=== PATIENT | male | born 1965 | race Caucasian/White ===

== ENCOUNTER → 2016-11-28 | Outpatient (CLI) | payer OTHER ==
[~2016-11-28] MED LIST: GADOBUTROL 10 ML VIAL IVP ONE
== END ==
LOC: FIMAGING 13:31
PROVIDERS: ATTEND Internal Medicine Infectious Disease
DX: R22.42 Localized swelling, mass and lump, left lower limb (principal)
CPT/HCPCS: A9585

== ENCOUNTER 2017-02-22 05:41 | Day surgery (SDC) | payer OTHER ==
[2017-02-22] MEDS ORDERED: LIDOCAINE 1% 2 ML INJ ONE (05:55)
[2017-02-22] MEDS ORDERED: ceFAZolin 2 GM/DEXTROSE 100 ML IV ONE (06:00)
[2017-02-22] MEDS ORDERED: BUPIVACAINE 0.5% 30 ML SDV ONE (06:59)
[2017-02-22] MEDS ORDERED: MIDAZOLAM 2 MG/2 ML VIAL ONE (07:13)
[2017-02-22] MEDS ORDERED: fentaNYL 100 MCG/2 ML INJ ONE ×2 (07:17→09:35)
[2017-02-22] MEDS ORDERED: PROPOFOL 200 MG/20 ML VIAL ONE ×2 (07:18→07:20)
[2017-02-22] MEDS ORDERED: KETAMINE 100 MG/10 ML SYR ONE (07:18)
[2017-02-22] MEDS ORDERED: ROCURONIUM 100 MG/10 ML VIAL ONE (07:20)
[2017-02-22] MEDS ORDERED: LIDOCAINE 2% 100 MG/5 ML SYR ONE (07:30)
[2017-02-22] MEDS ORDERED: HYDROmorphONE/DILAUDID 2 MG/ML INJ ONE (08:18)
[2017-02-22] MEDS ORDERED: SUGAMMADEX SODIUM 200 MG/2 ML VIAL IVP ONE (08:50)
--- NOTE | 2017-02-22 10:27 | GOP ---
[f rep st] OPERATIVE REPORT DATE OF OPERATION: 02/22/2017 SURGEON: Celsa Sykes MD COMPLIANCE COUNSEL: WENDY Rodas. ANESTHESIA: General. ANESTHESIOLOGIST: Dr. Gurvinder Taveras. PREOPERATIVE DIAGNOSIS: Ventral hernia. POSTOPERATIVE DIAGNOSIS: Incarcerated ventral hernia. PROCEDURE PERFORMED: Ventral hernia repair with mesh. FINDINGS: Loop of bowel in the subcutaneous tissue. Hernia defect 7 cm with 2 small defects near the umbilicus. SPECIMENS: None. ESTIMATED BLOOD LOSS: 20 cc. INDICATIONS: The patient is a 51-year-old man with a significant past medical and surgical history who developed a painful hernia in his abdomen. DESCRIPTION OF PROCEDURE: The patient was brought into the operating room, placed supine on the table, and general anesthesia was administered. His abdomen was prepped and draped in the usual sterile fashion. I infiltrated all sites with 0.5% Marcaine prior to making incisions. I made a transverse incision over the mass. I dissected down through the subcutaneous tissues with electrocautery, and I immediately encountered a loop of bowel. I inspected the bowel and there were no injuries from cautery. I then carefully dissected around the bowel and encountered the hernia defect. I was able to reduce the bowel. I performed dissection to reduce incarcerated omentum from 2 subumbilical defects. Once the fascia was cleared above and below the peritoneum, I tried to create flaps so that this would be a retrorectus dissection. His rectus was very difficult to identify. I closed the 2 small subumbilical defects with 0 PDS. I placed 4-0 Surgilon at least 3 cm away from the incision in each direction. I then closed the fascial defect with 0 PDS. Next, I placed a piece of 10 x 15 Symbotex mesh directly above the posterior rectus sheath. I then threaded the Surgilon through this so that it had adequate borders on each side of the incision. I tied these down. I continued to adhere the mesh to the fascia with 0 Surgilon. I then closed the anterior rectus with 0 Vicryl. I closed subcutaneous tissue with 3-0 Vicryl followed by 4-0 Monocryl. Dermabond applied. A tap block was then performed by Dr. Taveras. He was then awakened in the operating room, extubated, transferred to PACU in stable condition. /[id number]/MODL MTDD
== END 2017-02-22 11:20 | disposition home or self-care (01) ==
LOC: FSGY 05:41
PROVIDERS: ATTEND Surgery
PROC: 0WUF0JZ Supplement Abdominal Wall with Synthetic Substitute, Open Approach (ICD-10-PCS; principal; 2017-02-22 07:30)
DX: K43.6 Other and unspecified ventral hernia with obstruction, without gangrene (principal); C22.0 Liver cell carcinoma; E11.9 Type 2 diabetes mellitus without complications; G89.29 Other chronic pain; E66.01 Morbid (severe) obesity due to excess calories; Z68.41 Body mass index [BMI] 40.0-44.9, adult; G47.31 Primary central sleep apnea; Z87.891 Personal history of nicotine dependence
CPT/HCPCS: C1781; J0690; J1170; J2001; J2250; J2704; J3010

== ENCOUNTER → 2017-05-07 | Outpatient (CLI) | payer OTHER | LOC: CIMAGING 15:43 | PROVIDERS: ATTEND Nurse Practitioner | DX: M79.662 Pain in left lower leg (principal); M79.89 Other specified soft tissue disorders | CPT/HCPCS: 93971-PO ==

== ENCOUNTER → 2017-06-27 | Outpatient (CLI) | payer OTHER | LOC: FIMAGING 16:18 | PROVIDERS: ATTEND Internal Medicine Hematology & Oncology | DX: R07.9 Chest pain, unspecified (principal); R10.9 Unspecified abdominal pain ==

== ENCOUNTER 2017-12-27 17:40 | Inpatient (IN) | payer OTHER, BC ==
--- NOTE | 2017-12-27 18:04 | EDPHY ---
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 He was initially diagnosed with the carcinoma in June 2012 and is followed by Dr. Oakley, oncologist. For the past 10 days he has had difficulty walking due to both weakness and pain in his left leg. Last week he stopped taking his oral chemotherapy medications. For the past several days, the pain in his lower back , left hip, and left thigh became exacerbated and he has been unable to control the pain with his prescribed pain medications. He is supposed to take 10 hydromorphones a day, but this is no alleviating the pain and he is about to run of the prescription. Dr. Oakley was going to direct admit this patient, but the oncology floor is full, so he was advised to go to the emergency department. This will be his first admission for pain control. He has also experienced mild nausea and intermittent vomiting which has decreased his appetite. Due to the decrease in appetite he has lost around 30 pounds in the past 4 months. Denies history of CHF. No fever, chills, chest pain, shortness of breath, palpitations, diarrhea, urinary complaints, headache, lightheadedness. REVIEW OF SYSTEMS: Aside from elements discussed in the HPI, a comprehensive 10-point review of systems was reviewed and is negative. 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 Overweight gentleman. HEENT: Atraumatic. Eyes: No icterus, no injection. Mouth: slightly dry mucous membranes. No erythema or lesions. Neck: supple with no adenopathy. LUNGS: Clear to auscultation bilaterally, no wheezes, rhonchi or rales. CARDIAC: Tachycardic, no rubs, murmurs or gallops. ABDOMEN: Soft, tenderness in the left lower quadrant. No guarding or rebound. Nondistended. BACK: No CVA tenderness. No midline bony tenderness. EXTREMITIES: Bilateral, left greater than right, erythema on distal tib/fib. No trauma. No edema. Range of motion is normal throughout. No tenderness to palpation over the left hip. NEURO: Alert and oriented, grossly nonfocal. Somewhat difficult to appreciate strength in the lower extremities secondary to the patient's discomfort. SKIN: Warm and dry, no rash. PSYCHIATRIC: Normal mentation, no agitation. Portions of this note were transcribed by a medical accountant. I personally performed a history, physical exam, medical decision making, and confirmed accuracy of information the transcribed note. ED Course: The patient is a 52 y/o male with metastatic renal cell carcinoma presenting with an inability to control his back and left leg pain as well as concerns regarding over sedation. He was advised to come to the ED from his oncologist, Dr. Oakley. On exam he is in clear discomfort. Labs ordered. 1L IV NS and 1mg IV Hydromorphone administered. 1913: Dr. Hayes, oncologist, returned our page and is not familiar with this patient. She has requested that the patient be admitted to the hospitalist. 0: Reassessed patient and discussed plan for admission he is comfortable with this plan. He is still in pain, additional 1mg IV Hydromorphone administered. 1935: Spoke with hospitalist service, Dr. Pulido accepts admission of this patient. Dr. Pulido was aware of the patient from conversations with [facility]. There evidently is also concerns regarding over sedation. MDM: Differential diagnoses for the patient's symptom complex was considered including but not limited to uncontrollable pain, worsening metastatic disease, over sedation, opiate dependency. - Data Points Laboratory Results: Laboratory Results 12/27/17 18:30 12/27/17 18:30 12/27/17 12/27/17 18:30 18:30 WBC 15.26 10^3/uL H 10^3/uL (3.80-9.50) RBC 4.79 10^6/uL 10^6/uL (4.40-6.38) Hgb 13.7 g/dL g/dL (13.7-17.5) Hct 43.6 % % (40.0-51.0) MCV 91.0 fL fL (81.5-99.8) MCH 28.6 pg pg (27.9-34.1) MCHC 31.4 g/dL L g/dL (32.4-36.7) RDW 17.9 % H % (11.5-15.2) Plt Count 403 10^3/uL H 10^3/uL (150-400) MPV 10.0 fL fL (8.7-11.7) Neut % (Auto) 60.1 % % (39.3-74.2) Lymph % (Auto) 23.5 % % (15.0-45.0) [place] % (Auto) 15.2 % H % (4.5-13.0) Eos % (Auto) 0.4 % L % (0.6-7.6) Baso % (Auto) 0.3 % % (0.3-1.7) Nucleat RBC Rel Count 0.1 % % (0.0-0.2) Absolute Neuts (auto) 9.18 10^3/uL H 10^3/uL (1.70-6.50) Absolute Lymphs (auto) 3.58 10^3/uL H 10^3/uL (1.00-3.00) Absolute Monos (auto) 2.32 10^3/uL H 10^3/uL (0.30-0.80) Absolute Eos (auto) 0.06 10^3/uL 10^3/uL (0.03-0.40) Absolute Basos (auto) 0.04 10^3/uL 10^3/uL (0.02-0.10) Absolute Nucleated RBC 0.02 10^3/uL H 10^3/uL (0-0.01) Immature Gran % 0.5 % % (0.0-1.1) Immature Gran # 0.08 10^3/uL 10^3/uL (0.00-0.10) Sodium 138 mEq/L mEq/L (135-145) Potassium 4.2 mEq/L mEq/L (3.5-5.2) Chloride 100 mEq/L mEq/L (97-110) Carbon Dioxide 29 mEq/l mEq/l (22-31) Anion Gap 9 mEq/L mEq/L (8-16) BUN 12 mg/dL mg/dL (7-23) Creatinine 0.8 mg/dL mg/dL (0.7-1.3) Estimated GFR > 60 Glucose 134 mg/dL H mg/dL (70-100) Calcium 11.4 mg/dL H mg/dL (8.5-10.4) Phosphorus Pending Total Bilirubin 0.8 mg/dL mg/dL (0.1-1.4) Conjugated Bilirubin 0.6 mg/dL H mg/dL (0.0-0.5) Unconjugated Bilirubin 0.2 mg/dL mg/dL (0.0-1.1) AST 32 IU/L IU/L (17-59) ALT 30 IU/L IU/L (21-72) Alkaline Phosphatase 141 IU/L H IU/L (38-126) Total Protein 7.3 g/dL g/dL (6.3-8.2) Albumin 3.2 g/dL L g/dL (3.5-5.0) Lipase 47 IU/L IU/L (23-300) Medications Given: Discontinued Medications Hydromorphone HCl (Dilaudid) 1 mg IVP EDNOW ONE Stop: 12/27/17 18:30 Last Admin: 12/27/17 18:40 Dose: 1 mg Hydromorphone HCl (Dilaudid) 1 mg IVP EDNOW ONE Stop: 12/27/17 19:20 Last Admin: 12/27/17 19:28 Dose: 1 mg Sodium Chloride (Ns) 1,000 mls @ 0 mls/hr IV ONCE ONE; Wide Open PRN Reason: Protocol Stop: 12/27/17 18:31 Last Admin: 12/27/17 18:41 Dose: 1,000 mls General Time Seen by Provider: 12/27/17 18:01 Initial Vital Signs: Initial Vital Signs Temperature (C) 37.0 C 12/27/17 17:42 Heart Rate 112 H 12/27/17 17:42 Respiratory Rate 18 12/27/17 17:42 Blood Pressure 155/82 H 12/27/17 17:42 O2 Sat (%) 90 L 12/27/17 17:42 O2 Delivery Mode Room Air O2 (L/minute) 2 Allergies/Adverse Reactions: lisinopril Allergy (Verified 04/05/16 17:52) Home Medications: Medication Instructions Recorded FLUoxetine [Prozac 20 MG (*)] 1 cap PO DAILY 12/27/17 Gabapentin [Neurontin 300 MG (*)] 300 mg PO TID 12/27/17 Levothyroxine [Synthroid 50 mcg 50 mcg PO DAILY06 12/27/17 (*)] Losartan Potassium [Cozaar 25 mg 25 mg PO BID 12/27/17 (*)] Magic Mouth Wash 5 ml PO ACHS PRN 12/27/17 Metformin HCl [Metformin 1000 mg] 1,000 mg PO DAILY 12/27/17 Potassium Cl [Klor-Con 20 meq (*)] 1 tab PO HS 12/27/17 Prochlorperazine Maleate 10 mg PO Q6 PRN 12/27/17 [Compazine 10mg (*)] Zolpidem Tartrate [Ambien] 10 mg PO HS PRN 12/27/17 traZODone [traZODONE 100MG (*)] 200 mg PO HS 12/27/17 Oxymorphone HCl [Opana ER] 160 mg PO BID 12/31/17 Oxymorphone Hcl [Opana Er] 120 mg PO DAILY@1500 12/31/17 oxyCODONE IR [Oxycodone Ir (*)] 15 - 30 mg PO Q4 PRN #0 12/31/17 Departure - Departure Disposition: [facility] Clinical Impression: Pain management Renal cell carcinoma Qualifiers: Laterality: left Qualified Code(s): C64.2 - Malignant neoplasm of left kidney, except renal pelvis Condition: Fair Report Scribed for: Suzette Parker Report Scribed by: Estephania Smyth Date of Report: 12/27/17 Time of Report: 18:04
[2017-12-27] MEDS ORDERED: HYDROmorphONE/DILAUDID 2 MG/ML INJ IVP ONE ×2 (18:29→19:19)
[2017-12-27] MEDS ORDERED: NS 1,000 ML IV ONE (18:30)
[2017-12-27] MEDS ORDERED: HYDROmorphONE/DILAUDID 2 MG/ML INJ ONE (18:31)
[2017-12-27 18:47] LABS: PLATELET COUNT 403 10^3/uL (150-400)
[2017-12-27] MEDS ORDERED: ACETAMINOPHEN 325 MG TAB PO PRN (19:55)
[2017-12-27] MEDS ORDERED: ONDANSETRON DISINTEGRATING 4 MG TAB PO PRN (19:55)
[2017-12-27] MEDS ORDERED: ONDANSETRON 4 MG/2 ML VIAL IVP PRN (19:55)
[2017-12-27] MEDS ORDERED: BISACODYL 10 MG SUPP PR PRN (21:40)
[2017-12-27] MEDS ORDERED: POLYETHYLENE GLYCOL 3350 17 GM PKT PO PRN (21:40)
[2017-12-27] MEDS ORDERED: MAGNESIUM HYDROXIDE 30 ML UDCUP PO PRN (21:40)
[2017-12-27] MEDS ORDERED: LACTULOSE 20 GM/30 ML UDCUP PO PRN (21:40)
[2017-12-27] MEDS ORDERED: NS 1,000 ML IV SCH (21:45)
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
[2017-12-27] MEDS ORDERED: NALOXONE HCL 0.4 MG/ML INJ IVP PRN (22:33)
--- NOTE | 2017-12-27 23:03 | SOAPPROG ---
SOAP Progress Note Assessment/Plan: Addendum: Spoke with RN who dosed Opana 200mg this evening without an order from me. Concerning given patient is somnolent here. My plan was to reduce this dose for basal coverage and add MEDICAL INFORMATION OFFICER for PRN. I spoke with her and expressed that her actions were not appropriate and she agreed. Plan: #Acute on chronic pain: -unclear of cancer progressive since don't have access to PET report this evening. Will discuss with Oncology tomorrow -he is having more pain, but oversedated from over-dosing oxycodone. So will reduce will reduced Oxymorphone to 120mg BID (200mg BID) for basal coverage and MEDICAL INFORMATION OFFICER for PRN and adjust from there. -tried Fentanyl patch in past, but was oversedated -Methadone may be a good option in this patient. Would prefer to try this during day rather than overnight -pulse ox Prolonged time spent on visit: 30 min reviewing meds, d/w pharmacy 12/27/17 23:03 12/27/17 23:04 12/28/17 13:57 Objective: Vital Signs Temp Pulse Resp BP Pulse Ox 37.0 C 105 H 18 176/99 H 97 12/27/17 20:44 12/27/17 20:44 12/27/17 20:44 12/27/17 20:44 12/27/17 20:44 12/26/17 12/27/17 12/28/17 05:59 05:59 05:59 Intake Total 800 Output Total 100 Balance 700 ICD10 Worksheet Patient Problems: Problems Problem Status Onset Pain management Acute Renal cell carcinoma Acute
[2017-12-27] MEDS: HYDROmorphONE/DILAUDID 6 MG/30 ML PCA IV PRN (23:10)
--- NOTE | 2017-12-27 23:41 | PDMN ---
Medical Necessity Medical necessity: C/M review: est. > 2 MN LOS for eval and TX of acute on chronic abdominal / hip pain from metastatic disease, patient somnolent due self overmedication leukocytosis, hypercalcemia, requiring ongoing IV fluids, IV Dilaudid PERFUME AND TOILET WATER MAKER, pain treatment, pulse oximetry, supplemental O2, comorbid patient direct admit for Oncologist office, metastatic clear cell cancer with peritoneal carcinomatosis, hypothyroidism, type 2 diabetes, hypertension, chronic leg swelling greater on the left after foot surgery, history of morbid obesity per H/P.
[2017-12-28] MEDS: OXYMORPHONE HCL 40 MG PO SCH ×2 (07:59→20:57)
[2017-12-28] MEDS: SENNOSIDES/DOCUSATE SODIUM TAB PO SCH ×2 (08:00→20:57)
[2017-12-28] MEDS: ENOXAPARIN 40 MG/0.4 ML SYR SC SCH (08:00)
[2017-12-28] MEDS ORDERED: OXYMORPHONE HCL PO SCH (09:00)
[2017-12-28] MEDS: HYDROmorphONE/DILAUDID 6 MG/30 ML PCA IV PRN (10:43)
--- NOTE | 2017-12-28 12:56 | GCON ---
[f rep st] CONSULTATION ONCOLOGY CONSULTATION REASON FOR REFERRAL: Metastatic renal cell carcinoma with severe pain. HISTORY OF PRESENT ILLNESS: Alexandre Gary is a 52-year-old male with a long history of metastatic renal cell carcinoma followed by . He was admitted yesterday from the office for further management of pain control in the setting of progressive metastatic disease. Alexandre's oncology history dates back to July of 2012 when he underwent a left nephrectomy for renal cell carcinoma. Intraoperatively, the SMA and celiac arteries were transected and he had a saphenous vein graft to the SMA and celiac arteries along with a splenectomy. He did receive vaccinations prior to discharge at that time. He was initially felt to have stage III disease. However, he developed stage IV disease in 2013 when he was found to have a local recurrence in the left nephrectomy site in the subdiaphragmatic region as well as in the left side of the pelvis lateral to the psoas muscle. He has had multiple prior therapies over the years including sunitinib, followed by everolimus in 2014. He received immunotherapy with nivolumab from November to March of 2016 and has been on Votrient since April of 2016. He has had stable disease for more than a year and a half while on Votrient. However, recently had a PET-CT on December 17 that showed evidence of progressive disease. He continued to have a PET avid soft tissue mass along the left adela of the diaphragm measuring 8.3 x 3.2 cm and the size of this was unchanged compared to August 2017. In addition, he has a large mass in the left retroperitoneum and psoas muscle extending into the left iliac fossa, currently measuring 10.8 x 16.2 cm and previously measured 9.6 x 15 cm on the August scan. The anterior edge of the mass was felt to be difficult to separate from the descending colon. There was no mesenteric or retroperitoneal adenopathy. Another site of disease in the left retroperitoneum was also slightly larger measuring 1.9 x 2.2 cm, previously 1.7 x 2.1 cm. He has a small right nonobstructing kidney stone. He had evidence of a small bowel wall thickening in the duodenum and jejunum, which was more extensive compared to the prior scan and he has a new site of disease in the high left scrotum measuring 1.2 cm. The patient was seen in the office yesterday by Dr. Oakley to review the PET findings. However, he was found to have a significant increase in his pain primarily in the left flank and left groin and hip region. He has been on long-standing narcotics and there was concern that he was taking his narcotic medication inappropriately. His current pain regimen consists of Opana 200 mg q.12 hours with oxycodone 60 mg q.2-3 hours p.r.n. He was last prescribed 180 tablets on December 25. The patient denies any fevers, chills, or sweats. His states that he has been more confused, but is uncertain whether or not she can attribute this to inappropriate use of the pain medication. He has had no nausea, vomiting, or diarrhea. PAST MEDICAL HISTORY: 1. Metastatic renal cell carcinoma as outlined above. 2. Morbid obesity. 3. Type 2 diabetes. 4. Hypothyroidism. 5. Obstructive sleep apnea. 6. Hypertension. 7. Chronic low back pain secondary to spinal stenosis. PAST SURGICAL HISTORY: 1. L3, L5 laminectomy, left nephrectomy with splenectomy. 2. Saphenous vein grafting of the SMA and celiac artery. SOCIAL HISTORY: He lives in [place] with his , . He has 2 children named Robbie and January. He does not smoke cigarettes and drinks alcohol occasionally. MEDICATIONS: Please see hospitalist note for medications on admission. REVIEW OF SYSTEMS: 10-point review of systems is negative other than noted in HPI. PHYSICAL EXAM: GENERAL: He is morbidly obese. He appears comfortable in bed, currently on IV Dilaudid STATE FIRE MARSHAL. HEENT: Pupils are small but reactive. LUNGS: Clear to auscultation anteriorly. HEART: Tachycardic, regular rate. ABDOMEN: Soft. He has no tenderness in the left lower quadrant on exam. He is slightly tender in the left suprapubic region to palpation. EXTREMITIES: 2 to 3+ bilateral lower extremity edema. NEURO: He seems sedated. VITAL SIGNS: Blood pressure 186/113, O2 saturation 95% on 2 L. He is afebrile. LABORATORY DATA: White blood cell count 15.6, hematocrit 42.9, platelets 386. Comprehensive metabolic panel notable for calcium of 11.4 with a conjugated bilirubin of 0.6. IMPRESSION: This is a 52-year-old male with multiple medical problems including metastatic renal cell carcinoma with extensive local regional recurrence with history of diabetes, hypertension, obesity, and chronic narcotic use, who is admitted with increasing pain. PET scan shows evidence of progressive disease, which is likely the cause of the worsening pain. His mental status is difficult to assess and altered in part due to narcotics. However, in light of progressive disease, there is some concern for possible brain metastases as a contributing cause. Also of note, the patient appears to have new onset hypercalcemia. He is not known to have bone metastases. However, this could be hypercalcemia related to malignancy or some other etiology and this too would be contributing to altered mental status. PLAN: 1. For now, pain management consists of Opana 200 mg p.o. q.12 hours with Dilaudid STATE FIRE MARSHAL at 0.4 mg p.r.n. 2. Continue IV hydration for management of the hypercalcemia. We will be evaluating for hyperparathyroidism and/or other etiologies. 3. Consider brain imaging to rule out brain metastases if mental status does not improve. 4. Hypertension management per hospitalist. 5. Will continue to follow along with you. /[id number]/MODL MTDD
[2017-12-28] MEDS ORDERED: hydrALAZINE 20 MG/ML VIAL IVP PRN (15:11)
[2017-12-28] MEDS ORDERED: D50W 25 GM/50 ML SYR IVP PRN (15:11)
[2017-12-28] MEDS ORDERED: NS 1,000 ML IV SCH (15:15)
--- NOTE | 2017-12-28 15:17 | HOSPPROG ---
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 somewhat confused. does not appear to be in pain. Objective: Vital Signs Temp Pulse Resp BP Pulse Ox 36.8 C 107 H 16 174/104 H 91 L 12/28/17 12:33 12/28/17 14:37 12/28/17 14:37 12/28/17 14:37 12/28/17 14:37 Laboratory Results 12/28/17 05:05 12/28/17 05:05 12/27/17 12/28/17 12/29/17 05:59 05:59 05:59 Intake Total 1800 Output Total 500 150 Balance 1300 -150 - Physical Exam Constitutional: no apparent distress Eyes: PERRL Ears, Nose, Mouth, Throat: moist mucous membranes, hearing normal, ears appear normal Cardiovascular: regular rate and rhythym, no murmur, rub, or gallop, edema Respiratory: no respiratory distress, no rales or rhonchi Gastrointestinal: normoactive bowel sounds, soft, non-tender abdomen Skin: warm Neurologic: No AAOx3 Psychiatric: encephalopathic, No interacting appropriately Lymph, Heme, Immunologic: No petechiae ICD10 Worksheet Patient Problems: Problems Problem Status Onset Pain management Acute Renal cell carcinoma Acute
[2017-12-28] MEDS: GABAPENTIN 300 MG CAP PO SCH ×2 (16:24→20:56)
[2017-12-28] MEDS ORDERED: traZODone 100 MG TAB PO PRN (18:50)
[2017-12-28] MEDS: INSULIN LISPRO 100 UNIT/ML SC SCH (19:17)
[2017-12-28] MEDS: LOSARTAN POTASSIUM 25 MG TAB PO SCH (20:56)
[2017-12-29 05:22] LABS: PLATELET COUNT 382 10^3/uL (150-400)
[2017-12-29] MEDS: LEVOTHYROXINE 50 MCG TAB PO SCH (05:53)
[2017-12-29] MEDS: INSULIN LISPRO 100 UNIT/ML SC SCH ×3 (07:43→19:11)
[2017-12-29] MEDS: SENNOSIDES/DOCUSATE SODIUM TAB PO SCH ×2 (08:26→21:12)
[2017-12-29] MEDS: ENOXAPARIN 40 MG/0.4 ML SYR SC SCH (08:26)
[2017-12-29] MEDS: LOSARTAN POTASSIUM 25 MG TAB PO SCH ×2 (08:26→21:08)
[2017-12-29] MEDS: GABAPENTIN 300 MG CAP PO SCH ×3 (08:26→21:12)
[2017-12-29] MEDS: FLUoxetine 20 MG CAP PO SCH (08:26)
[2017-12-29] MEDS: OXYMORPHONE HCL 40 MG PO SCH (08:27)
[2017-12-29] MEDS: oxyCODONE IR 15 MG TAB PO PRN ×4 (12:44→23:13)
--- NOTE | 2017-12-29 15:37 | ASMTCMCOM ---
CM Note CM Note Notes: Pt with metastatic renal cell ca admitted for pain control.Spoke with RN about pt and there is some concern that he has been misusing pain meds at home to control his pain. Pt would likely benefit from communiity-base palliative care in the home. Unable to talk with pt and not in room. CM will f/u tomorrow. Date Signed: 12/29/2017 03:36 PM Electronically Signed By:Sheri Gregorio LCSW
--- NOTE | 2017-12-29 17:00 | HOSPPROG ---
Hospitalist Progress Note Assessment/Plan: #Metastatic Renal cell carcinoma with peritoneal carcinomatosis -PET scan with disease progression likely contributing to pain #Encephalopathy most likely from opiate sedation -Resolved #Dehydration -IVF, resolved #Hypercalcemia -This has not resolved with IVF. Question Bone Mets? Further w/u per Oncology #Acute on Chronic Pain Management -Change Opana to 160mg Qam, 120mg Q 1500 and 160mg q p.m. This is a 40mg total increase from his daily regimen -Stop Dilaudid -Restart Oxycontin. He has only required minimal Dilaudid over 24 hrs which equates to 54mg/24hrs of oxycodone equivalents. I suspect the decrease is due to still metabolizing the medications that he was previously taking as well as the doubling of Gabapenin. Will restart Oxycontin at 15mg PO BID PRN. If he is still in pain with this regimen tomorrow, would increase Opana to 160 TID and cont with short acting meds. -cont Gabapentin to 600mg tid. Would increase to 900 TID if still in pain tomorrow #HTN -cont home meds -BP is elevated but may be due to pain, for now I will not increase his meds. -Hydralazine IV PRN #DM -hold Metformin -ISS #Morbid Obesity #Leukocytosis, no signs of infection #Hypothyroidism Subjective: pain was very well controlled overngh and this morning. However this afternoon he is having breakthrough pain. Encephalopathy has cleared. Objective: Vital Signs Temp Pulse Resp BP Pulse Ox 36.6 C 88 13 151/95 H 95 12/29/17 15:19 12/29/17 15:19 12/29/17 15:19 12/29/17 15:19 12/29/17 15:19 Laboratory Results 12/29/17 04:40 12/29/17 04:40 12/28/17 12/29/17 12/30/17 05:59 05:59 05:59 Intake Total 1800 2091.4 Output Total 500 800 100 Balance 1300 1291.4 -100 - Physical Exam Constitutional: no apparent distress Eyes: PERRL, EOMI Ears, Nose, Mouth, Throat: moist mucous membranes, hearing normal Cardiovascular: regular rate and rhythym Respiratory: no respiratory distress Gastrointestinal: normoactive bowel sounds, soft, non-tender abdomen Skin: warm Musculoskeletal: generalized weakness Neurologic: AAOx3 Psychiatric: interacting appropriately Lymph, Heme, Immunologic: No petechiae ICD10 Worksheet Patient Problems: Problems Problem Status Onset Pain management Acute Renal cell carcinoma Acute
--- NOTE | 2017-12-29 19:09 | SOAPPROG ---
CHE Progress Note Assessment/Plan: Assessment: 1. Metastatic renal cell carcinoma with extensive local recurrence. 2. Chronic pain with opiod dependance and tolerance. 3. Hypercalcemia-improving with hydration. ? secondary to bone mets (not known) , high PTH? 4. Altered MS on admission-improved Plan: 1. Appreciate hospitalist pain management recommendations. Now on opana and oxycodone. 2. Will monitor calcium as outpatient with further work up if it recurs. 3. Dr. Oakley considering referral to pain clinic. 12/29/17 19:05 Subjective: Feels much better, alert with good control of pain Objective: Vital Signs Temp Pulse Resp BP Pulse Ox 36.6 C 88 13 151/95 H 95 12/29/17 15:19 12/29/17 15:19 12/29/17 15:19 12/29/17 15:19 12/29/17 15:19 Laboratory Results 12/29/17 04:40 12/29/17 04:40 12/28/17 12/29/17 12/30/17 05:59 05:59 05:59 Intake Total 1800 2091.4 Output Total 500 800 100 Balance 1300 1291.4 -100 Physical Exam - Physical Exam General Appearance: alert, no apparent distress, obese Respiratory: lungs clear Abdomen: non-tender, soft Extremities: pedal edema (2+) ICD10 Worksheet Patient Problems: Problems Problem Status Onset Pain management Acute Renal cell carcinoma Acute
[2017-12-29] MEDS: Oxymorphone Hcl [Opana Er] 40 MG PO SCH (21:11)
[2017-12-30] MEDS: LEVOTHYROXINE 50 MCG TAB PO SCH (05:55)
[2017-12-30] MEDS: oxyCODONE IR 15 MG TAB PO PRN ×8 (05:58→21:48)
[2017-12-30] MEDS: GABAPENTIN 300 MG CAP PO SCH ×3 (07:57→21:36)
[2017-12-30] MEDS: FLUoxetine 20 MG CAP PO SCH (07:58)
[2017-12-30] MEDS: LOSARTAN POTASSIUM 25 MG TAB PO SCH ×2 (07:58→20:50)
[2017-12-30] MEDS: ENOXAPARIN 40 MG/0.4 ML SYR SC SCH (07:59)
[2017-12-30] MEDS: Oxymorphone Hcl [Opana Er] 40 MG PO SCH ×3 (08:07→21:41)
[2017-12-30] MEDS: SENNOSIDES/DOCUSATE SODIUM TAB PO SCH ×2 (08:25→21:36)
--- NOTE | 2017-12-30 08:38 | HOSPPROG ---
Hospitalist Progress Note Assessment/Plan: #Acute on chronic pain: due to metastatic clear cell carcinoma. Better- controlled with TID-dosing. Will not change oxycodone dose -needs pain management clinic. Still would consider Methadone if too many side effect. Can try accupuncture. Having BMs #Opioid toxicity: due to pt overmedicating self with oxycodone, Gabapentin #Hypercalcemia: mildly improved with IVFs #Acute hypoxic resp failure: may have FABIAN, opioids contributing #Metastatic RCC: progression of left retroperitoneal mass. FU Dr. Oakley #Disp: if clinically stable, DC tomorrow Time spent on 45 min counseling patient on pain management and FU Subjective: pain better today. Can walk Objective: Vital Signs Temp Pulse Resp BP Pulse Ox 36.9 C 85 17 114/88 H 91 L 12/30/17 04:00 12/30/17 04:00 12/30/17 04:00 12/30/17 04:00 12/30/17 04:00 Laboratory Results 12/29/17 04:40 12/29/17 04:40 12/29/17 12/30/17 12/31/17 05:59 05:59 05:59 Intake Total 2091.4 500 Output Total 800 100 Balance 1291.4 400 - Time Spent With Patient Time Spent with Patient: greater than 35 minutes Time Spent with Patient: Greater than 35 minutes spent on this patients care, greater than 50% of time spent counseling, educating, and coordinating care regarding the above mentioned plan. - Physical Exam Constitutional: obese Eyes: PERRL Ears, Nose, Mouth, Throat: moist mucous membranes Cardiovascular: regular rate and rhythym Respiratory: no respiratory distress Gastrointestinal: tenderness (RLQ, no point TTP over hip ) Genitourinary: no bladder fullness Skin: warm Neurologic: AAOx3, CN II-XII Intact Psychiatric: interacting appropriately (answering questions appropriately) ICD10 Worksheet Patient Problems: Problems Problem Status Onset Pain management Acute Renal cell carcinoma Acute
[2017-12-30] MEDS: INSULIN LISPRO 100 UNIT/ML SC SCH ×3 (09:15→18:04)
--- NOTE | 2017-12-30 14:52 | SOAPPROG ---
SOAP Progress Note Assessment/Plan: Assessment/Plan: 52 yo man w metastatic RCC who p/w intractable pain and AMS 1. Pain crisis - appreciate hospitalist's help w pain management on Opana and breakthrough oxycodone + gabapentin pain better controlled today 2. Stage IV RCC - most recently on votrient has progressed in left retroperitoneum heavily pretreated but good PS next line cabozantinib vs axitinib vs other ? unsure if we have clinical trial available but will follow w Dr Chavarria this 3. AMS - improved likely from narcotic overdose 12/30/17 14:50 12/30/17 14:52 Subjective: No acute distress up walking around Objective: Vital Signs Temp Pulse Resp BP Pulse Ox 36.8 C 94 18 107/58 L 91 L 12/30/17 12:10 12/30/17 12:10 12/30/17 12:10 12/30/17 12:10 12/30/17 12:10 Laboratory Results 12/29/17 04:40 12/29/17 04:40 12/29/17 12/30/17 12/31/17 05:59 05:59 05:59 Intake Total 2091.4 500 770 Output Total 800 100 Balance 1291.4 400 770 Gen - NAD HEENT - anicteric CV - RRR Chest - clear Abd - obese, BS+ Ext - bilateral pitting edema Neuro - nonfocal ICD10 Worksheet Patient Problems: Problems Problem Status Onset Pain management Acute Renal cell carcinoma Acute
--- NOTE | 2017-12-30 15:44 | ASMTCMCOM ---
CM Note CM Note Notes: Chart reviewed. Met with patient and his and family. He is up in a chair and is fairly conversant and pleasant. He states his pain is so much better and he is hopeful that he will continue to feel better on new pain med regimen. Likely to dc to home tomorrow with no needs identified at present. CM available should needs arise. Date Signed: 12/30/2017 03:44 PM Electronically Signed By:Katia Pond RN
[2017-12-31] MEDS: oxyCODONE IR 15 MG TAB PO PRN ×4 (00:20→09:34)
[2017-12-31] MEDS: LEVOTHYROXINE 50 MCG TAB PO SCH (05:55)
[2017-12-31] MEDS: FLUoxetine 20 MG CAP PO SCH (09:28)
[2017-12-31] MEDS: Oxymorphone Hcl [Opana Er] 40 MG PO SCH (09:28)
[2017-12-31] MEDS: LOSARTAN POTASSIUM 25 MG TAB PO SCH (09:29)
[2017-12-31] MEDS: GABAPENTIN 300 MG CAP PO SCH (09:29)
[2017-12-31] MEDS: ENOXAPARIN 40 MG/0.4 ML SYR SC SCH (09:30)
--- NOTE | 2017-12-31 10:55 | GDS ---
[f rep st] DISCHARGE SUMMARY DISCHARGE DIAGNOSIS: 1. Acute toxic encephalopathy. 2. Unintentional opioid toxicity. 3. Hypercalcemia. 4. Acute hypoxic respiratory failure. 5. Metastatic renal cell carcinoma. 6. Hypercalcemia. HISTORY OF PRESENT ILLNESS: A 52-year-old male with a history of renal cell carcinoma, followed by Suzanne Oakley, with recent PET scan showing progressive left retroperitoneal mass, presented with increa sed abdominal and groin pain. He was seen in Dr. Oakley's office and was noted to be over-sedated, falling asleep. Patient complained of stabbing left lower quadrant and back pain that radiates to hi s groin and leg for 3 weeks. He was taking oxymorphone 200 mg b.i.d. and oxycodone 60 mg q.2, but se lf increased the frequency of oxycodone in the past couple days prior to admission. He had previously been on fentanyl 100 mcg patch, which was doubled, and this made him too groggy. D enies any fevers, chills, or sweats. No cough. HOSPITAL COURSE: 1. Acute on chronic pain secondary to progressive renal cell carcinoma: He will follow up with Dr. Oakley for chemotherapy. Changed his Opana to 160 mg b.i.d. and then 120 mg during the day. Decrea sed oxycodone to 15-30 mg q.4 hours. Highly recommend pain management for this clinic and would joycelyn mmend trying methadone for less side effects. Also suggested acupuncture and provided him this infor mation. Patient is having no constipation. 2. Opioid toxicity: Again, secondary to over medicating with self medications. He is alert and pineda ented x3. 3. Hypercalcemia, mild. This improved with IV fluids. 4. Acute hypoxic respiratory failure: Secondary to opioids, likely underlying FABIAN with body habitus . Currently on room air. DISPOSITION: Patient is stable for discharge with family. FOLLOWUP: 1. Dr. Oakley. 2. Recommend Pain Management Clinic. 3. Trial of acupuncture. PHYSICAL EXAMINATION: VITAL SIGNS: Temperature 36.8, blood pressure 138/66, heart rate 84, respirat ion rate 14, 92% on 1 L. HEENT: PERRLA: Pupils are round, reactive. Moist mucous membranes. CV: Regular rate and rhythm. No murmurs, gallops, or rubs. LUNGS: Clear. GI: Soft, left lower quadr ant tenderness to palpation, along with groin. : No Dias. MUSCULOSKELETAL: Moving all 4 extrem ities. NEURO: 2 through 12 intact. PSYCH: Alert and oriented x3. /[id number]/MODL
[2017-12-31 11:25] VITALS: BP 148/75
[2017-12-31] MEDS: SENNOSIDES/DOCUSATE SODIUM TAB PO SCH (12:45)
[2017-12-31] MEDS: INSULIN LISPRO 100 UNIT/ML SC SCH (12:45)
--- NOTE | 2017-12-31 15:37 | PDIAF ---
- Diagnosis Diagnosis: acute pain crisis Code Status: Full Code - Medication Management Discharge Medications: Medications to Continue on Transfer FLUoxetine [Prozac 20 MG (*)] 1 cap PO DAILY 12/27/17 [Last Taken 12/27/17] Gabapentin [Neurontin 300 MG (*)] 300 mg PO TID 12/27/17 [Last Taken 12/27/17 14 :00] Levothyroxine [Synthroid 50 mcg (*)] 50 mcg PO DAILY06 12/27/17 [Last Taken ] Losartan Potassium [Cozaar 25 mg (*)] 25 mg PO BID 12/27/17 [Last Taken 08:00] Magic Mouth Wash 5 ml PO ACHS PRN 12/27/17 [Last Taken Unknown] Metformin HCl [Metformin 1000 mg] 1,000 mg PO DAILY 12/27/17 [Last Taken ] Potassium Cl [Klor-Con 20 meq (*)] 1 tab PO HS 12/27/17 [Last Taken 12/26/17] Prochlorperazine Maleate [Compazine 10mg (*)] 10 mg PO Q6 PRN 12/27/17 [Last Taken Unknown] Zolpidem Tartrate [Ambien] 10 mg PO HS PRN 12/27/17 [Last Taken Unknown] traZODone [traZODONE 100MG (*)] 200 mg PO HS 12/27/17 [Last Taken 12/26/17] Oxymorphone HCl [Opana ER] 160 mg PO BID 12/31/17 [Last Taken Unknown] Oxymorphone Hcl [Opana Er] 120 mg PO DAILY@1500 12/31/17 [Last Taken Unknown] oxyCODONE IR [Oxycodone Ir (*)] 15 - 30 mg PO Q4 PRN #0 12/31/17 [Last Taken Unknown] Discharge Medications: Refer to the Discharge Home Medication list for PRN reason. - Orders Services needed: Home Care, Registered Nurse Home Care Face to Face: I certify that this patient was under my care and that I had the required [id number] encounter meeting the encounter requirements on the discharge day. My findings support the fact that the patient is homebound as defined in Home Care Face to Face Continued: CMS Chapter 7 Medicare Benefits Manual 30.1.1 , The condition of the patient is such that there exists a normal inability to leave home and consequently, leaving home would require a considerable and taxing effort. Diet Recommendation: no restrictions on diet Diet Texture: Regular Texture Diet - Follow Up Care Current Providers and Referrals: Celsa Dang [Primary Care Provider] - As per Instructions
--- NOTE | 2018-01-01 14:44 | ASDISCHSUM ---
Discharge Information Plan Status: Medically Cleared to Leave: Discharge Date:12/31/2017 12:52 PM D/C Disposition: ADT D/C Disposition:Home, Routine, Self-Care Projected Discharge Date:12/31/2017 11:00 AM Transportation at D/C: Discharge Delay Reason: Follow-Up Date:12/31/2017 11:00 AM Discharge Slot: Final Diagnosis: Placement Information Referral Type:*Home Health Care Services Referral ID:[id number] Provider Name:[facility] Address 1:[address] Address 2: City:[place] Selection Factors: State:[place] Patient Contact Information Contact Name:AYDEN Relationship: Address:[address] City:[place] Alternate Phone: State/Zip Code:[place] [address] Email: Financial Information Financial Class:Medicare Primary Plan Desc:MEDICARE INPATIENT Primary Plan Number:[id number] Secondary Plan Desc: OUT OF STATE [facility] Secondary Plan Number:[id number] Assessment Information [facility] CM Progress Note CM Note CM Note Notes: Pt with metastatic renal cell ca admitted for pain control.Spoke with RN about pt and there is some concern that he has been misusing pain meds at home to control his pain. Pt would likely benefit from communiity-base palliative care in the home. Unable to talk with pt and not in room. CM will f/u tomorrow. Date Signed: 12/29/2017 03:36 PM Electronically Signed By:Sheri Gregorio LCSW [facility] CM Progress Note CM Note CM Note Notes: Chart reviewed. Met with patient and his and family. He is up in a chair and is fairly conversant and pleasant. He states his pain is so much better and he is hopeful that he will continue to feel better on new pain med regimen. Likely to dc to home tomorrow with no needs identified at present. CM available should needs arise. Date Signed: 12/30/2017 03:44 PM Electronically Signed By:Katia Pond RN Case Management Discharge Plan Note Case Management Discharge Discharge Order Complete? Answers: Yes Patient to Obtain Answers: Independently Medications Transportation Arranged Answers: Family/Friends Faxed Final Orders Answers: Yes Discharge Comments Notes: Patient discharged to home. [facility] ordered for home med management, ok'ed by patient. to transport home. Date Signed: 12/31/2017 10:57 AM Electronically Signed By:Silvia Melgar RN Intervention Information Intervention Type:*IM-Signed Date of Service:12/31/2017 11:24 AM Patient Type:Inpatient Staff Member:Venessa Wong Hours: Discipline: Severity: Comment:
--- NOTE | 2018-01-01 14:46 | ASMTLACE ---
LACE Length of stay for Answers: 3 days current admission Acuity / Level of Answers: Yes Care: Did the patient have an inpatient admission? Comorbidities - select Answers: Any tumor (including all that apply lymphoma or leukemia) Diabetes (uncontrolled or controlled) # of Emergency department Answers: 1-2 visits in the last 6 months Score: 10 Date Signed: 01/01/2018 02:45 PM Electronically Signed By:Sheri Gregorio LCSW
== END 2017-12-31 12:52 | disposition home or self-care (01) | DRG 917 ==
LOC: OBSVTOIN 18:58 → F1N 20:28
PROVIDERS: ADMIT Internal Medicine; ATTEND Internal Medicine
DX: T40.2X1A Poisoning by other opioids, accidental (unintentional), initial encounter (principal); G92 Toxic encephalopathy; J96.01 Acute respiratory failure with hypoxia; C64.2 Malignant neoplasm of left kidney, except renal pelvis; C78.6 Secondary malignant neoplasm of retroperitoneum and peritoneum; E83.52 Hypercalcemia; G89.3 Neoplasm related pain (acute) (chronic); G47.33 Obstructive sleep apnea (adult) (pediatric); E66.01 Morbid (severe) obesity due to excess calories; E11.65 Type 2 diabetes mellitus with hyperglycemia; E03.9 Hypothyroidism, unspecified; I10 Essential (primary) hypertension
CPT/HCPCS: J0360; J1170; J1650; J1815; J2405

== ENCOUNTER 2018-01-17 12:15 | Inpatient (IN) | payer BC, OTHER ==
[2018-01-17 13:20] LABS: PLATELET COUNT 376 10^3/uL (150-400)
[2018-01-17] MEDS ORDERED: NS 3,800 ML IV ONE (13:25)
[2018-01-17] MEDS ORDERED: ACETAMINOPHEN 500 MG TAB PO ONE (13:34)
--- NOTE | 2018-01-17 13:40 | EDPHY ---
H & P Stated Complaint: fever and hypercalcemia from [facility] Time Seen by Provider: 01/17/18 12:54 HPI/ROS: CHIEF COMPLAINT: Fever HISTORY OF PRESENT ILLNESS: 52-year-old male with diabetes and metastatic renal cell carcinoma presents with fever. Onset of fever yesterday, associated with generalized weakness and fatigue. No other associated new symptoms. Specifically no URI symptoms, cough, abdominal pain or extremity pain. He was seen here by the cancer center for further evaluation. He has ongoing pain in in the lower abdomen and upper legs related to metastatic disease. Last chemotherapy was 3 weeks ago. REVIEW OF SYSTEMS: complete 10 point ROS negative except at noted in the HPI - Personal History Current Tetanus/Diphtheria Vaccine: Yes Current Tetanus Diphtheria and Acellular Pertussis (TDAP): Yes Tetanus Vaccine Date: OVER 10 YRS - Medical/Surgical History PMH: Metastatic renal cell carcinoma Hx Asthma: No Hx Chronic Respiratory Disease: No Hx Diabetes: Yes Hx Cardiac Disease: No Hx Renal Disease: Yes Hx Cirrhosis: No Hx Alcoholism: No Hx Splenectomy or Spleen Trauma: Yes Other PMH: abd hernia epair. NIDDM - Social History Smoking Status: Former smoker - Physical Exam Exam: General Appearance: Alert, pleasant, nontoxic-appearing Eyes: Pupils equal and round, 2 mm, no conjunctival pallor or injection ENT, Mouth: Mucous membranes moist Neck: Normal inspection Respiratory: Lungs are clear to auscultation Cardiovascular: Regular rate and rhythm Gastrointestinal: Abdomen is soft, mild lower abdominal tenderness Neurological: A&O, nonfocal exam Skin: Warm and dry Extremities: 2+ pedal edema Psychiatric: Mood and affect normal Constitutional: Initial Vital Signs Temperature (C) 38.3 C 01/17/18 12:21 Heart Rate 118 H 01/17/18 12:21 Respiratory Rate 20 01/17/18 12:21 Blood Pressure 133/74 H 01/17/18 12:21 O2 Sat (%) 90 L 01/17/18 12:21 O2 Delivery Mode Nasal Cannula O2 (L/minute) 2 Allergies/Adverse Reactions: lisinopril Allergy (Verified 01/17/18 12:18) Home Medications: Medication Instructions Recorded FLUoxetine [Prozac 20 MG (*)] 1 cap PO DAILY 12/27/17 Gabapentin [Neurontin 300 MG (*)] 300 mg PO TID 12/27/17 Metformin HCl [Metformin 1000 mg] 1,000 mg PO DAILY 12/27/17 Levothyroxine [Synthroid 25 mcg 25 mcg PO DAILY06 01/17/18 (*)] Methadone HCl [Methadone 5 mg (*)] 15 mg PO TID 01/17/18 Oxymorphone HCl [Opana ER] 80 mg PO Q8H 01/17/18 oxyCODONE IR [Oxycodone Ir (*)] 30 mg PO Q4 PRN 01/17/18 Medical Decision Making - Diagnostics Imaging Results: Imaging Impressions Chest X-Ray 01/17/18 13:25 Impression: No pneumonia. No posttraumatic abnormality or metastatic renal cell cancer in the chest. Chest x-ray independently reviewed by me reveals no acute disease. ED Course/Re-evaluation: This patient with metastatic renal cell carcinoma presents with 24 hr history of fever. He meets SIRS criteria with tachycardia, fever and leukocytosis. Initial lactate is greater than 2. Repeat lactate ordered and severe sepsis protocol initiated. IV normal saline 30 mL/kg ordered. Tylenol given. No localizing signs or symptoms. Chest x-ray reveals no evidence of pneumonia. Urinalysis is pending. No antibiotics given at this point, unclear source of fever. The hospitalist service was consulted for admission. The patient remained stable throughout, with a normal blood pressure and heart rate 90-100. Differential Diagnosis: Differential diagnosis includes pyelonephritis, cholecystitis, influenza, cellulitis, pneumonia, abscess, meningitis. - Data Points Laboratory Results: Laboratory Results 01/17/18 13:05 01/17/18 13:05 01/17/18 01/17/18 01/17/18 14:06 13:05 13:05 WBC 18.24 10^3/uL H 10^3/uL (3.80-9.50) RBC 4.91 10^6/uL 10^6/uL (4.40-6.38) Hgb 13.3 g/dL L g/dL (13.7-17.5) Hct 42.8 % % (40.0-51.0) MCV 87.2 fL fL (81.5-99.8) MCH 27.1 pg L pg (27.9-34.1) MCHC 31.1 g/dL L g/dL (32.4-36.7) RDW 18.2 % H % (11.5-15.2) Plt Count 376 10^3/uL 10^3/uL (150-400) MPV 10.6 fL fL (8.7-11.7) Neut % (Auto) 84.3 % H % (39.3-74.2) Lymph % (Auto) 9.0 % L % (15.0-45.0) Barron % (Auto) 5.4 % % (4.5-13.0) Eos % (Auto) 0.1 % L % (0.6-7.6) Baso % (Auto) 0.2 % L % (0.3-1.7) Nucleat RBC Rel Count 0.2 % % (0.0-0.2) Absolute Neuts (auto) 15.37 10^3/uL H 10^3/uL (1.70-6.50) Absolute Lymphs (auto) 1.65 10^3/uL 10^3/uL (1.00-3.00) Absolute Monos (auto) 0.99 10^3/uL H 10^3/uL (0.30-0.80) Absolute Eos (auto) 0.01 10^3/uL L 10^3/uL (0.03-0.40) Absolute Basos (auto) 0.04 10^3/uL 10^3/uL (0.02-0.10) Absolute Nucleated RBC 0.03 10^3/uL H 10^3/uL (0-0.01) Immature Gran % 1.0 % % (0.0-1.1) Immature Gran # 0.18 10^3/uL H 10^3/uL (0.00-0.10) VBG Lactic Acid 2.0 mmol/L D mmol/L (0.7-2.1) Sodium 139 mEq/L mEq/L (135-145) Potassium 4.9 mEq/L mEq/L (3.5-5.2) Chloride 99 mEq/L mEq/L (97-110) Carbon Dioxide 27 mEq/l mEq/l (22-31) Anion Gap 13 mEq/L mEq/L (8-16) BUN 19 mg/dL mg/dL (7-23) Creatinine 1.1 mg/dL mg/dL (0.7-1.3) Estimated GFR > 60 Glucose 105 mg/dL H mg/dL (70-100) Calcium 11.7 mg/dL H mg/dL (8.5-10.4) Total Bilirubin 1.4 mg/dL mg/dL (0.1-1.4) Conjugated Bilirubin 1.0 mg/dL H mg/dL (0.0-0.5) Unconjugated Bilirubin 0.4 mg/dL mg/dL (0.0-1.1) AST 42 IU/L IU/L (17-59) ALT 28 IU/L IU/L (21-72) Alkaline Phosphatase 139 IU/L H IU/L (38-126) Total Protein 7.3 g/dL g/dL (6.3-8.2) Albumin 3.1 g/dL L g/dL (3.5-5.0) Lipase 55 IU/L IU/L (23-300) 01/17/18 13:05 WBC RBC Hgb Hct MCV MCH MCHC RDW Plt Count MPV Neut % (Auto) Lymph % (Auto) Barron % (Auto) Eos % (Auto) Baso % (Auto) Nucleat RBC Rel Count Absolute Neuts (auto) Absolute Lymphs (auto) Absolute Monos (auto) Absolute Eos (auto) Absolute Basos (auto) Absolute Nucleated RBC Immature Gran % Immature Gran # VBG Lactic Acid 2.6 mmol/L H mmol/L (0.7-2.1) Sodium Potassium Chloride Carbon Dioxide Anion Gap BUN Creatinine Estimated GFR Glucose Calcium Total Bilirubin Conjugated Bilirubin Unconjugated Bilirubin AST ALT Alkaline Phosphatase Total Protein Albumin Lipase Microbiology Results: MICROBIOLOGY 01/17/18 14:06 Nasal, Sinus - Swab Respiratory Panel (PCR) - Final No Organism Detected Medications Given: Gabapentin (Neurontin) 300 mg PO TID [place] Stop: 07/16/18 15:59 Last Admin: 01/17/18 16:28 Dose: 300 mg Methadone HCl (Methadone Hcl) 15 mg PO TID [place] Stop: 01/27/18 15:59 Last Admin: 01/17/18 17:05 Dose: 15 mg Miscellaneous Medication (Oxymorphone Hcl [Opana Er]) 80 mg PO Q8H [place] Stop: 07/16/18 15:44 Last Admin: 01/17/18 16:28 Dose: 80 mg Discontinued Medications Acetaminophen (Tylenol) 1,000 mg PO EDNOW ONE Stop: 01/17/18 13:35 Last Admin: 01/17/18 13:34 Dose: 1,000 mg Sodium Chloride (Ns) 3,800 mls @ 7,600 mls/hr 30 ml/kg infuse over 30 min ( 3800 ml) IV EDNOW ONE PRN Reason: Protocol Stop: 01/17/18 13:54 Last Admin: 01/17/18 13:32 Dose: 3,800 mls Departure - Departure Disposition: [facility] Acute Clinical Impression: Renal cell carcinoma Qualifiers: Laterality: unspecified laterality Qualified Code(s): C64.9 - Malignant neoplasm of unspecified kidney, except renal pelvis Fever Qualifiers: Fever type: unspecified Qualified Code(s): R50.9 - Fever, unspecified Condition: Fair
[2018-01-17] MEDS ORDERED: ONDANSETRON 4 MG/2 ML VIAL IVP PRN (15:38)
[2018-01-17] MEDS ORDERED: ONDANSETRON DISINTEGRATING 4 MG TAB PO PRN (15:38)
[2018-01-17] MEDS: GABAPENTIN 300 MG CAP PO SCH ×2 (16:28→22:23)
[2018-01-17] MEDS: Oxymorphone Hcl [Opana Er] 40 MG PO SCH ×2 (16:28→23:23)
--- NOTE | 2018-01-17 16:30 | GHP ---
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 He was seen in Oncology Clinic yesterday and today where he received some IV fluids for the management of hypercalcemia. He has had a persistent leukocytosis. This morning he woke up and became febrile. His works unusual hours , often going to work at 1:30 in the morning. She called at 6:30 and no answer and finally at 9 he a woke and he had fallen. He was urinating and his legs gave way. He notes urinary frequency, but oth erwise no urinary symptoms. Notably yesterday, he received 2.5 L IV fluids because of hypercalcemia, which is presumably related to his malignancy. When I speak with the patient, he denies any localizing symptoms. He is not having diarrhea, cough, sputum, nausea, vomiting. He denies significant constipation despite daily opiates. He has no painf ul areas on his skin and the site where he received an IV yesterday is not painful. He does not have a [place] PICC line. He does not think he is in narcotic withdrawal despite tapering his narcotics. REVIEW OF SYSTEMS: Complete 10-point review of systems conducted and negative except as noted in the HPI. PAST MEDICAL HISTORY: Clear cell renal carcinoma diagnosed in 2011 after an episode of gross hematur ia. At that time, he had a surgery complicated by a splenectomy. He also has peritoneal carcinomato sis, obesity, type 2 diabetes and hypothyroidism, left nephrectomy, splenectomy, left inca rcerated hernia and varicocele laminectomy. SOCIAL HISTORY: Lives in [place] with his . No illicits. Occasional alcohol. FAMILY HISTORY: Reviewed and unremarkable. PHYSICAL EXAMINATION: VITAL SIGNS: Temp 38.3, blood pressure 133/74. His low blood pressure is 111 /60. Pulse 118 on presentation, now 90s, breathing 16-20 times a minute, 95 on room air. GENERAL: No acute distress. Chronically ill appearing. HEENT: Sclerae anicteric. Oropharynx clear. Mucous m embranes moist. NECK: Supple without lymphadenopathy or JVD. LUNGS: Clear to auscultation bilater ally. HEART: Is S1, S2. ABDOMEN: Soft, diffusely tender without rebound or guarding. LOWER EXTREMI TIES: That showed 1+ edema bilaterally. Calves are nontender. SKIN: Without rash, without infection. NEUROLOGIC: Grossly nonfocal. The patient is alert and conversant and appears to not be c onfused. LABS: White count 18, with a left shift. Hematocrit 43, platelets were 376,000 early last month. H is white count has been about 15 or higher. Venous lactate was 2.6 on presentation, now 2.0. His so dium 139, potassium 4.9, chloride 99, bicarb 27, BUN 19, creatinine 1.1. This is his baseline. Gluc ose 105, calcium is 11.7, an ionized calcium yesterday was 1.8. Bilirubin is 1.4, which is a bit hig her than it has been. AST/ALT are normal. Alk phosphatase slightly elevated at 139. Albumin is 3.1 . Lipase 155. Urinalysis a month ago was normal. Today's value is pending. Chest x-ray interpreted by me is obscured by body habitus, but it does not appear to have any focal i nfiltrate. I discussed the case Dr. Lindsey Conner. ASSESSMENT AND PLAN: This is a 52-year-old gentleman who presents with fever and leukocytosis as wel l as sepsis. 1. Sepsis. The patient has a fever and elevated lactate and leukocytosis. There is no apparent morena rce. He has received a saline bolus appropriately. 2. Question infection. The patient has no clear evidence of infection. Urinalysis is pending, so I wait that result. It is probably worth checking a right upper quadrant ultrasound given slightly ab normal LFTs. He still has his gallbladder, although the patient does not have a Sebastian sign. His ab domen is diffusely tender. I think at this time, given his absence of neutropenia and his overall so mewhat good clinical appearance, we will hold antibiotics, await urinalysis and right upper quadrant ultrasound. Certainly should he become unstable, we will initiate broad-spectrum antibiotics includi ng for nosocomial coverage given his recent hospitalization. 3. Continuous narcotic use. I reconciled his medicines and will continue them as they are. He does not appear to be narcotized at this moment. 4. Hypercalcemia. We will follow daily. He received what I believe to be pamidronate yesterday. 5. Prophylaxis. Pharmacologic prophylaxis indicated. Will start low-molecular weight heparin. DISPOSITION: Inpatient status. LAB ADDENDUM: The patient had a respiratory panel showing no organism detected. Blood cultures are pending. /[id number]/MODL
[2018-01-17] MEDS: METHADONE HCL 5 MG TAB PO SCH ×2 (17:05→22:24)
--- NOTE | 2018-01-17 18:09 | PDMN ---
Medical Necessity Medical necessity: C/M review: Patient meets INPT criteria under [facility] Sepsis and Other Febrile Illness, without Focal Infection, Systemic or infectious condition GRG (Hypercalcemia): Acute and persistent sepsis of unclear source, fever, leukocytosis, WBC 18.24 (patient is not on steroids), VBG lactic acid 2.6, question infection, blood cultures pending, urine culture ordered, hypercalcemia, Ca 11.7, requiring IV fluids in ED, abdominal US, ongoing sepsis checks Q 1 hr., frequent VS, pulse oximetry, supplemental O2, daily Ca lab monitoring, comorbid history of renal cell carcinoma with metastasis to peritoneum, continuous opiate use, 01/16/2018 patient received 2.5L of IV fluids in Oncology clinic for hypercalcemia, hypercalcemia presumably related to patient's malignancy. MD anticipates > 2 MN LOS for ongoing med nec for eval and TX of above.
[2018-01-17] MEDS: NS 1,000 ML IV SCH (22:23)
[2018-01-18 05:01] LABS: PLATELET COUNT 365 10^3/uL (150-400)
[2018-01-18] MEDS: LEVOTHYROXINE 25 MCG TAB PO SCH (06:13)
[2018-01-18] MEDS: Oxymorphone Hcl [Opana Er] 40 MG PO SCH ×2 (06:14→15:38)
[2018-01-18] MEDS: METHADONE HCL 5 MG TAB PO SCH ×2 (08:20→15:39)
[2018-01-18] MEDS: ENOXAPARIN 40 MG/0.4 ML SYR SC SCH (08:20)
[2018-01-18] MEDS: GABAPENTIN 300 MG CAP PO SCH ×2 (08:20→15:39)
[2018-01-18] MEDS ORDERED: FLUoxetine 20 MG CAP PO SCH (09:00)
[2018-01-18] MEDS: ACETAMINOPHEN 325 MG TAB PO PRN ×2 (09:20→20:54)
[2018-01-18] MEDS: NS 1,000 ML IV SCH (09:26)
[2018-01-18] MEDS ORDERED: CABOMETYX 60 MG PO SCH (11:00)
--- NOTE | 2018-01-18 11:23 | GCON ---
[f rep st] CONSULTATION NEW PATIENT CONSULTATION REFERRING PHYSICIAN: Wilfred Khnana MD REASON FOR CONSULTATION: Patient known well to Dr. Ted Oakley, has metastatic renal cell carcin skinny, recently progressed, admitted for hypercalcemia, fall, and fever. HISTORY OF PRESENT ILLNESS: The patient was diagnosed with renal cell carcinoma of the left kidney i n July of 2012. The tumor size was 28 cm, and he was a pathologic stage III at that time. The p atient has been through multiple lines of therapy, most recently progressed, and pending the initiati on of cabozantinib per Dr. Oakley. This will be his 5th line of therapy. The patient was recently admitted a few weeks ago for pain crisis and narcotic overdose. He was discharged within a couple da ys and sent home. More recently, he was discovered to have hypercalcemia in the clinic. He was given Zometa and IV flu ids on 01/16/2014. Yesterday in the clinic, he was noted to be more confused and had a fever of 101. 5. and patient report that he had fallen and was down for several hours before coming into the clinic. The patient denies any loss of consciousness. The denied any seizure-like activity. Patient denies any localizing symptoms. He has not had any diarrhea, cough, sputum production, nause a, vomiting, or focal pain. He denies any new skin rashes. Since he has been admitted, IV antibiotics have not been given. He has had an abdominal ultrasound w hich showed nothing acute. He had cholelithiasis without evidence of gallbladder wall thickening. N o biliary ductal dilatation. His calcium has trended down. He was continued on IV fluids. REVIEW OF SYSTEMS: Today, the patient denies any other symptoms aside from his chronic abdominal alanna n. He is feeling well and would favor being discharged. A 14-point review of systems otherwise nega tive. PAST MEDICAL HISTORY: Clear cell carcinoma, left kidney, status post radical nephrectomy with associ ated splenectomy in July 2012; had abdominal exploration and mesenteric and small bowel resection October 2012. He has been on multiple lines of therapy. I believe he was most recently on Votrien t and is being switched to cabozantinib as 5th line therapy based on PET-CT that was done 12/16/2017, showed progressive disease. Also has hypothyroidism, history of uncontrolled pain on quite a bit of narcotics, obstructive sleep apnea, and hypercalcemia. FAMILY HISTORY: Noncontributory. MEDS: Have been reviewed in the EMR. PHYSICAL EXAM: VITAL SIGNS: Today, vital signs show blood pressure 117/70, pulse is 74, respiration rate 16, satting 95% on nasal cannula, temp is 36.5. Has had no fever in the hospital. GENERAL: A 52-year-old gentleman, not in acute distress. Looks his stated age. HEENT: Anicteric. HEART: Re gular rate and rhythm. LUNGS: Clear bilaterally. ABDOMEN: Obese, soft, tender to palpation throug hout. No guarding. No rebound. EXTREMITIES: Lower extremities bilateral chronic edema. LABS: Today show white blood cell count of 12.5, hemoglobin 11.6, hematocrit 38.1, platelet count of 365,000. Lactic acid had initially been 2, down to 1.3. His CMP initially on 01/17/2018, showed a calcium of 11.7. This has trended down to 10.1. His albumin is slightly low. Corrected calcium is likely a little bit higher today, but still close to normal limits. Sodium 137, potassium 4.6. His UA was negative. Blood culture thus far has not detected any growth. Respiratory panel also negativ e. IMAGING: As detailed above. ASSESSMENT AND PLAN: A 52-year-old gentleman with metastatic renal cell carcinoma. Most recent PET demonstrates progressive metastatic disease in the retroperitoneum and pelvis. The plan is to start on cabozantinib. He was admitted yesterday for hypercalcemia, fever, and fall. 1. Fever, questionable related to Zometa infusion the day prior or his fall. He has no localizing s ymptoms, and infectious workup thus far has been negative. He is not currently on antibiotics, and f ever has not recurred. We will continue him without antibiotics and monitor him another 24 hours. I maging was unrevealing. 2. Fall, mechanical, possibly some weakness related to current narcotic use or other. He has had re latively recent imaging of his brain showing no evidence of metastatic disease. 3. Hypercalcemia, malignancy related, status post Zometa on 01/16. Calcium is also improved with hy dration. This will need to be followed up as an outpatient. May have been a component of his confus ion prior. 4. Metastatic renal cell carcinoma. Will be started on cabozantinib today. The oral medications wi ll be given in the hospital. 5. Pain control. Continue current pain management. He is on quite a bit of narcotics but not havin g any constipation, and his mentation and respiratory status have been stable. 6. We will continue to follow along while patient is here. Hopefully can be discharged over the wehal kend. /[id number]/MODL
--- NOTE | 2018-01-18 14:02 | HOSPPROG ---
Hospitalist Progress Note Assessment/Plan: # fever - d/t zometa vs other; will continue to monitor for occult infection # hyperCa - resolved with zometa and IVF - recheck tomorrow # RCC, metastatic - starting cabozatinib today # chronic pain on continuous narcotics - cont gabapentin, oxymorphone, oxycodone and methadone - caution with narcotics as patient recently had unintentional OD # hypothyroid - synthroid # dvt ppx - lovenox Subjective: no recurrent fever Objective: Vital Signs Temp Pulse Resp BP Pulse Ox 36.7 C 68 16 112/63 94 01/18/18 12:50 01/18/18 12:50 01/18/18 12:50 01/18/18 12:50 01/18/18 12:50 Laboratory Results 01/18/18 04:20 01/18/18 04:20 01/17/18 01/18/18 01/19/18 05:59 05:59 05:59 Intake Total 3300 1337 Output Total 275 150 Balance 3025 1187 chart reviewed CXR and US reviewed - Physical Exam Constitutional: no apparent distress, appears nourished Cardiovascular: regular rate and rhythym, no murmur, rub, or gallop Respiratory: no respiratory distress, no rales or rhonchi, clear to auscultation Gastrointestinal: tenderness (mild), other (soft), No guarding, No rebound, No distension ICD10 Worksheet Patient Problems: Problems Problem Status Onset Renal cell carcinoma Acute Pain management Acute Fever Acute
--- NOTE | 2018-01-18 16:12 | ASMTCMCOM ---
CM Note CM Note Notes: Pt has been admitted after a fall at home with a fever and sepsis. He has a hx of renal cell CA with mets to the peritoneum and opiate dependence. He lives in [place] with his . He is currently receiving IVF and workup is ongoing. CM will follow for any d/c needs. Date Signed: 01/18/2018 04:11 PM Electronically Signed By:CHADD Marie
[2018-01-19] MEDS: GABAPENTIN 300 MG CAP PO SCH (00:22)
[2018-01-19] MEDS: METHADONE HCL 5 MG TAB PO SCH ×2 (00:22→08:05)
[2018-01-19] MEDS: Oxymorphone Hcl [Opana Er] 40 MG PO SCH (00:23)
[2018-01-19] MEDS: LEVOTHYROXINE 25 MCG TAB PO SCH (05:22)
[2018-01-19] MEDS: ACETAMINOPHEN 325 MG TAB PO PRN ×2 (05:22→12:02)
[2018-01-19] MEDS ORDERED: Oxymorphone Hcl [Opana Er] 40 MG PO SCH (08:00)
[2018-01-19] MEDS ORDERED: GABAPENTIN 300 MG CAP PO SCH (08:00)
[2018-01-19] MEDS ORDERED: FLUoxetine 20 MG CAP PO SCH (08:00)
[2018-01-19] MEDS: ENOXAPARIN 40 MG/0.4 ML SYR SC SCH (08:08)
[2018-01-19] MEDS ORDERED: CABOMETYX 60 MG PO SCH (10:00)
[2018-01-19 11:26] VITALS: BP 130/68
--- NOTE | 2018-01-19 11:41 | SOAPPROG ---
SOAP Progress Note Assessment/Plan: Assessment/Plan: 52 yo w metastatic RCC admitted w fever, hypercalcemia, and fall 1. Fever - infectious w/u negative no fevers in hospital 2. Hypercalcemia - s/p Zometa (01/16) and IVF resolved likely due to hypercalcemia of malignancy 3. RCC - progressed; now on cabozantanib (started 01/18/18) 4. Fall - mechanical, no trauma Dispo - d/c home today 01/19/18 11:38 Subjective: No acute events pt denies new issues Objective: Vital Signs Temp Pulse Resp BP Pulse Ox 36.6 C 63 17 130/68 H 93 01/19/18 11:25 01/19/18 11:25 01/19/18 11:25 01/19/18 11:25 01/19/18 11:25 Laboratory Results 01/18/18 04:20 01/18/18 04:20 01/18/18 01/19/18 01/20/18 05:59 05:59 05:59 Intake Total 3300 2137 Output Total 275 150 Balance 3025 1987 Gen - NAD HEENT - anicteric Neuro - nonfocal ICD10 Worksheet Patient Problems: Problems Problem Status Onset Fever Acute Renal cell carcinoma Acute Pain management Acute
--- NOTE | 2018-01-19 12:23 | GDS ---
[f rep st] DISCHARGE SUMMARY DIAGNOSES: 1. Fever, negative infectious workup. 2. Hypercalcemia. 3. Metastatic renal cell carcinoma. 4. Chronic pain on continuous narcotics. 5. Hypothyroid. HOSPITAL COURSE: A 52-year-old male with metastatic renal cell carcinoma admitted with fever. There were no clear localizing symptoms. Notably, he had received Zometa the day before for hypercalcemia . Blood cultures have been negative. Chest x-ray negative for pneumonia. Urinalysis negative for a ny signs of infection. He has been hemodynamically stable. Mentating well. Feels well. He has had no recurrence of his fever. He was not started on empiric antibiotics. Suspect mostly that this is due to either his renal cell carcinoma or Zometa infusion. He will be di scharged home in stable condition with his with no change in medications. He will follow up mikal Oakley 2 days after discharge. BILLING: I spent less than 30 minutes on the day of discharge coordinating care. /[id number]/MODL
--- NOTE | 2018-01-19 15:26 | PDIAF ---
- Diagnosis Diagnosis: Renal Cell Carcinoma Code Status: Full Code - Medication Management Discharge Medications: Medications to Continue on Transfer FLUoxetine [Prozac 20 MG (*)] 1 cap PO DAILY 12/27/17 [Last Taken 12/27/17] Gabapentin [Neurontin 300 MG (*)] 300 mg PO TID 12/27/17 [Last Taken 12/27/17 14 :00] Metformin HCl [Metformin 1000 mg] 1,000 mg PO DAILY 12/27/17 [Last Taken ] Levothyroxine [Synthroid 25 mcg (*)] 25 mcg PO DAILY06 01/17/18 [Last Taken Unknown] Methadone HCl [Methadone 5 mg (*)] 15 mg PO TID 01/17/18 [Last Taken Unknown] Oxymorphone HCl [Opana ER] 80 mg PO Q8H 01/17/18 [Last Taken 01/17/18 06:00] oxyCODONE IR [Oxycodone Ir (*)] 30 mg PO Q4 PRN 01/17/18 [Last Taken Unknown] Discharge Medications: Refer to the Discharge Home Medication list for PRN reason. - Orders Services needed: Home Care, Master Licensed Loan Officer, Physical Therapy, Occupational Therapy Home Care Face to Face: I certify that this patient was under my care and that I had the required [id number] encounter meeting the encounter requirements on the discharge day. My findings support the fact that the patient is homebound as defined in Home Care Face to Face Continued: CMS Chapter 7 Medicare Benefits Manual 30.1.1 , The condition of the patient is such that there exists a normal inability to leave home and consequently, leaving home would require a considerable and taxing effort. Isolation Type: Chemotherapy Isolation, None Diet Recommendation: no restrictions on diet - Follow Up Care Current Providers and Referrals: Ted Oakley MD [Medical Doctor] - (as previously scheduled) JOHNNY ZHANG [Primary Care Provider] - As per Instructions
== END 2018-01-19 12:00 | disposition home or self-care (01) | DRG 864 ==
LOC: F1N 15:17
PROVIDERS: ADMIT Internal Medicine; ATTEND Student in an Organized Health Care Education/Training Program
DX: R50.9 Fever, unspecified (principal); T50.3X5A Adverse effect of electrolytic, caloric and water-balance agents, initial encounter; E83.52 Hypercalcemia; E03.9 Hypothyroidism, unspecified; C78.6 Secondary malignant neoplasm of retroperitoneum and peritoneum; C64.2 Malignant neoplasm of left kidney, except renal pelvis; F11.20 Opioid dependence, uncomplicated; G89.3 Neoplasm related pain (acute) (chronic); D72.829 Elevated white blood cell count, unspecified; E11.9 Type 2 diabetes mellitus without complications; K80.20 Calculus of gallbladder without cholecystitis without obstruction; Z87.891 Personal history of nicotine dependence; Z90.81 Acquired absence of spleen; Z90.5 Acquired absence of kidney; Z91.81 History of falling
CPT/HCPCS: J1650

== ENCOUNTER 2018-05-06 | Inpatient (IN) | payer OTHER, BC | END 2018-05-10 10:43 | disposition hospice, home (50) | DRG 948 | PROVIDERS: ADMIT Internal Medicine | PROC: 3E0S33Z Introduction of Anti-inflammatory into Epidural Space, Percutaneous Approach (ICD-10-PCS; principal; 2018-05-09) ==

== ENCOUNTER 2018-06-06 16:16 | Inpatient (IN) | payer BC, OTHER ==
[2018-06-06] MEDS ORDERED: HYDROmorphONE/DILAUDID 2 MG/ML INJ IVP ONE (16:39)
[2018-06-06] MEDS ORDERED: ONDANSETRON 4 MG/2 ML VIAL IVP ONE (16:39)
--- NOTE | 2018-06-06 16:42 | EDPHY ---
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 He was last discharged on 05/10/2018 after being admitted for the same problem, by myself. He presents today with 2 weeks of worsening left-sided back pain unchanged base current outpatient medication regimen which includes methadone, Opana, gabapentin, and a lorazepam last night. He woke up at 1:00 a.m. With severe pain, took 2 of his Opana, for methadone, 2 gabapentin, and 1 lorazepam a and was able to sleep the rest the night presents here with intractable pain. He apparently is out of his instant release oxycodone. Symptoms are associated with some nausea and vomiting today, no new weakness or numbness in extremities, no fever or chills. He has some chronic left foot tingling which is been present for the last 20 years and is unchanged today. REVIEW OF SYSTEMS: Eye: no change in vision ENT: no sore throat Cardiac: no chest pain or syncope Pulmonary: no cough or SOB Abdomen: no vomiting, diarrhea, abdominal pain Musculoskeletal: HPI Skin: no rash Neuro: HPI, no incontinence, no urinary symptoms. Constitutional: no fever : no urinary symptoms A comprehensive 10 point review of systems is otherwise negative aside from elements mentioned in the history of present illness. PAST MEDICAL HISTORY: Includes chronic pain syndrome, metastatic renal cell carcinoma, ileus psoas mass, hypothyroidism. Social history: Here with his spouse General Appearance: Alert and conversant, cooperative. Eyes: No scleral icterus. ENT, Mouth: Normal mucous membranes. Respiratory: Normal respiratory effort, breath sounds equal, lungs are clear to auscultation. Cardiovascular: Regular rate and rhythm. Gastrointestinal: Abdomen is soft and non tender. Neurological: Alert, face symmetric, can move all 4 extremities. He has some slight decrease in light touch sensation to his left foot which is chronic. No clonus. Patellar reflexes 1+ bilateral. Skin: Warm and dry, no rashes. Musculoskeletal: No peripheral edema. Psychiatric: Not agitated. Emergency Department course/MDM: Dilaudid 2 mg IV, Zofran 4 mg IV, admission for pain control. Hospitalist and oncology consultation. Smoking Status: Former smoker Constitutional: Initial Vital Signs Temperature (C) 37.1 C 06/06/18 16:22 Heart Rate 107 H 06/06/18 16:22 Respiratory Rate 18 06/06/18 16:22 Blood Pressure 170/95 H 06/06/18 16:22 O2 Sat (%) 92 06/06/18 16:22 O2 Delivery Mode Room Air Allergies/Adverse Reactions: lisinopril Allergy (Verified 05/06/18 18:00) Home Medications: Medication Instructions Recorded Gabapentin [Neurontin 300 MG (*)] 300 mg PO TID@,,12/27/17 Levothyroxine [Synthroid 25 mcg 25 mcg PO DAILY06 01/17/18 (*)] Methadone HCl [Methadone 5 mg (*)] 20 mg PO ,,01/17/18 Cabozantinib S-Malate [Cabometyx] 20 mg PO DAILY@04/22/18 FLUoxetine [Prozac 20 MG (*)] 20 mg PO DAILY 04/22/18 oxyCODONE IR [Oxycodone Ir (*)] 30 mg PO Q4 PRN #120 tab 04/24/18 Oxymorphone HCl [Opana ER] 80 mg PO TID@,,05/06/18 celeCOXIB [Celebrex (*)] 200 mg PO BID 05/06/18 Medical Decision Making Differential Diagnosis: Differential for back pain considered including but not limited to cauda equina , sciatica, muscle strain, as herniated disc, pathologic fracture Consult/Admit Bed Type: [place] [id number], [place] [id number] - Data Points Medications Given: Hydromorphone HCl (Dilaudid) 0.5 - 1 mg IVP Q3HRS PRN PRN Reason: Pain, Severe Unable to Take PO Stop: 06/16/18 17:38 Last Admin: 06/06/18 18:07 Dose: 1 mg Discontinued Medications Hydromorphone HCl (Dilaudid) 2 mg IVP EDNOW ONE Stop: 06/06/18 16:40 Last Admin: 06/06/18 17:11 Dose: 2 mg Ondansetron HCl (Zofran) 4 mg IVP EDNOW ONE Stop: 06/06/18 16:40 Last Admin: 06/06/18 17:11 Dose: 4 mg Departure - Departure Disposition: [facility] Inpatient Acute Clinical Impression: Severe low back pain Condition: Fair
[2018-06-06 17:03] LABS: PLATELET COUNT 485 10^3/uL (150-400)
[2018-06-06] MEDS ORDERED: ONDANSETRON 4 MG/2 ML VIAL IVP PRN (17:39)
[2018-06-06] MEDS ORDERED: ONDANSETRON DISINTEGRATING 4 MG TAB PO PRN (17:39)
[2018-06-06] MEDS ORDERED: ACETAMINOPHEN 325 MG TAB PO PRN (17:39)
--- NOTE | 2018-06-06 17:47 | PDGENHP ---
History and Physical - Chief Complaint back pain - History of Present Illness This is a 53 yo male with multiple hospitalizations who p/w acute on chronic left sided back pain. He has a history of renal cell cancer with a left iliopsoas mass with S1 nerve root compression. He was last discharged on 2017 after being admitted for the same problem. Over the past 2 weeks the pain has become progressive. He is on several narcotics but has been taking more of them as he has intractable pain. Symptoms are associated with some nausea and vomiting today, no new weakness or numbness in extremities, no fever or chills. He has some chronic left foot tingling which is been present for the last 20 years and is unchanged today. PAST MEDICAL HISTORY: Includes chronic pain syndrome, metastatic renal cell carcinoma, ileus psoas mass, hypothyroidism. Social history: Here with his spouse, non smoker (former smoker), no etoh FmHx: non contributory r History Information - Allergies/Home Medication List Allergies/Adverse Reactions: lisinopril Allergy (Verified 05/06/18 18:00) Home Medications: Gabapentin [Neurontin 300 MG (*)] 300 mg PO TID@,,12/27/17 [Last Taken 14:00] Levothyroxine [Synthroid 25 mcg (*)] 25 mcg PO DAILY06 01/17/18 [Last Taken ] Methadone HCl [Methadone 5 mg (*)] 20 mg PO ,01/17/18 [Last Taken 14:00] Cabozantinib S-Malate [Cabometyx] 20 mg PO DAILY@04/22/18 [Last Taken ] FLUoxetine [Prozac 20 MG (*)] 20 mg PO DAILY 04/22/18 [Last Taken 06/06/18] Oxymorphone HCl [Opana ER] 80 mg PO TID@05/06/18 [Last Taken 06/06/18 14:00] celeCOXIB [Celebrex (*)] 200 mg PO BID 05/06/18 [Last Taken 06/06/18 12:00] I have personally reviewed and updated: medical history, social history - Past Medical History diabetes type 2 Additional medical history: metastatic renal cell carcinoma. DDD L spine. Chronic pain. Chronic continuous opioid dependence - Surgical History Additional surgical history: abdominal hernia repair - Family History Positive for: non-pertinent - Social History Smoking Status: Former smoker Additional social history: , at bedside Review of Systems Review of Systems: ROS: 10pt was reviewed & negative except for what was stated in HPI & below Physical Exam Physical Exam: Temp Pulse Resp BP Pulse Ox 37.1 C 107 H 18 170/95 H 92 06/06/18 16:22 06/06/18 16:22 06/06/18 16:22 06/06/18 16:22 06/06/18 16:22 Constitutional: no apparent distress Eyes: PERRL, EOMI Ears, Nose, Mouth, Throat: moist mucous membranes, hearing normal Cardiovascular: regular rate and rhythym, edema (1+) Respiratory: no respiratory distress, no rales or rhonchi, clear to auscultation Gastrointestinal: normoactive bowel sounds, soft, non-tender abdomen Skin: warm Musculoskeletal: full muscle strength Neurologic: AAOx3 Psychiatric: interacting appropriately, not anxious, not encephalopathic Lymph, Heme, Immunologic: No petechiae Lab Data & Imaging Review 06/06/18 16:50 06/06/18 16:50 WBC 12.42 10^3/uL (3.80-9.50) H 06/06/18 16:50 RBC 4.59 10^6/uL (4.40-6.38) 06/06/18 16:50 Hgb 11.9 g/dL (13.7-17.5) L 06/06/18 16:50 Hct 39.0 % (40.0-51.0) L 06/06/18 16:50 MCV 85.0 fL (81.5-99.8) 06/06/18 16:50 MCH 25.9 pg (27.9-34.1) L 06/06/18 16:50 MCHC 30.5 g/dL (32.4-36.7) L 06/06/18 16:50 RDW 19.2 % (11.5-15.2) H 06/06/18 16:50 Plt Count 485 10^3/uL (150-400) H 06/06/18 16:50 MPV 9.9 fL (8.7-11.7) 06/06/18 16:50 Neut % (Auto) 67.4 % (39.3-74.2) 06/06/18 16:50 Lymph % (Auto) 21.9 % (15.0-45.0) 06/06/18 16:50 [place] % (Auto) 9.5 % (4.5-13.0) 06/06/18 16:50 Eos % (Auto) 0.6 % (0.6-7.6) 06/06/18 16:50 Baso % (Auto) 0.2 % (0.3-1.7) L 06/06/18 16:50 Nucleat RBC Rel Count 0.2 % (0.0-0.2) 06/06/18 16:50 Absolute Neuts (auto) 8.37 10^3/uL (1.70-6.50) H 06/06/18 16:50 Absolute Lymphs (auto) 2.72 10^3/uL (1.00-3.00) 06/06/18 16:50 Absolute Monos (auto) 1.18 10^3/uL (0.30-0.80) H 06/06/18 16:50 Absolute Eos (auto) 0.08 10^3/uL (0.03-0.40) 06/06/18 16:50 Absolute Basos (auto) 0.02 10^3/uL (0.02-0.10) 06/06/18 16:50 Absolute Nucleated RBC 0.03 10^3/uL (0-0.01) H 06/06/18 16:50 Immature Gran % 0.4 % (0.0-1.1) 06/06/18 16:50 Immature Gran # 0.05 10^3/uL (0.00-0.10) 06/06/18 16:50 Sodium 137 mEq/L (135-145) 06/06/18 16:50 Potassium 5.1 mEq/L (3.3-5.0) H 06/06/18 16:50 Chloride 102 mEq/L (97-110) 06/06/18 16:50 Carbon Dioxide 24 mEq/l (22-31) 06/06/18 16:50 Anion Gap 11 mEq/L (8-16) 06/06/18 16:50 BUN 14 mg/dL (7-23) 06/06/18 16:50 Creatinine 0.7 mg/dL (0.7-1.3) 06/06/18 16:50 Estimated GFR > 60 06/06/18 16:50 Glucose 146 mg/dL (70-100) H 06/06/18 16:50 Calcium 9.8 mg/dL (8.5-10.4) 06/06/18 16:50 Specimen Hemolysis 154 06/06/18 16:50 Assessment & Plan Assessment: #Severe low back pain (Acute) #Acute on Chronic Pain Syndrome -likely due to 16 cm retroperitoneal mass causing compression on the Iliopsoas. Other causes could include S1 nerve compression although seems that the retroperitoneal mass is more likely. -The pt does have an op MRI of the lumbar spine previously which per report shows non specific signal of T1, T2, T12, L1 -Radiation therapy is not an option given size of mass -NS has evaluated and no immediate surgical options available during his last admission. This may need to be reconsidered -The pt had epidural injection during his last admission and had some improvement right after. This lasted about 2 weeks. -If appropriate pain mgmt tomorrow, then will d/c tomorrow. He still needs f/u with NS. -Does not want Ketamine #Iliopsoas mass #Metastatic Renal Cell Carcinoma #Obesity #DMII #Hypothyroidism Plan: -Pain mgmt -may need to increase Opana -cont home meds -I will increase Gabapentin to max dose -Dilaudid IV PRN -will order CT abd to eval the mass and see if it has changed. This will help determine the etiology of the pain. If unchanged and as he had improvements with the epidural injection, would consider reconsulting Neurosurgery tomorrow -Onc will also need to be consulted. He sees Dr. Oakley as an outpatient -SCDs for now. He likely need Lovenox but in case of procedure, will do SCD's at this time
[2018-06-06] MEDS: HYDROmorphone HCL 0.5 MG/0.5 ML SYR IVP PRN ×2 (18:07→21:14)
[2018-06-06] MEDS ORDERED: NS 1,000 ML IV SCH (18:15)
[2018-06-06] MEDS: OXYMORPHONE PO SCH (21:29)
[2018-06-06] MEDS: METHADONE HCL 5 MG TAB PO SCH (21:29)
[2018-06-06] MEDS: GABAPENTIN 400 MG CAP PO SCH (21:29)
[2018-06-07] MEDS: CABOZANTINIB S MALATE 20 MG PO SCH (03:40)
[2018-06-07] MEDS: HYDROmorphone HCL 0.5 MG/0.5 ML SYR IVP PRN (04:27)
[2018-06-07] MEDS: OXYMORPHONE PO SCH ×3 (05:21→23:26)
[2018-06-07] MEDS: METHADONE HCL 5 MG TAB PO SCH ×2 (05:21→14:39)
[2018-06-07] MEDS: LEVOTHYROXINE 25 MCG TAB PO SCH (05:21)
[2018-06-07] MEDS ORDERED: HYDROmorphONE/DILAUDID 2 MG/ML INJ IVP ONE (05:35)
[2018-06-07] MEDS ORDERED: HYDROmorphONE/DILAUDID 6 MG/30 ML PCA IV PRN (06:26)
[2018-06-07] MEDS ORDERED: NALOXONE HCL 0.4 MG/ML INJ IVP PRN ×2 (06:26→15:23)
--- NOTE | 2018-06-07 06:30 | HOSPPROG ---
Hospitalist Progress Note Assessment/Plan: XC: Patient still complaining of "16/10" pain despite large doses of PRN narcotics. I will order Dilaudid ACCOUNTS EXECUTIVE as a result. Objective: Vital Signs Temp Pulse Resp BP Pulse Ox 36.8 C 75 16 142/75 H 95 06/07/18 03:29 06/07/18 03:29 06/07/18 03:29 06/07/18 03:29 06/07/18 03:29 Laboratory Results 06/06/18 16:50 06/06/18 16:50 06/06/18 06/07/18 06/08/18 05:59 05:59 05:59 Intake Total 1604 Balance 1604 ICD10 Worksheet Patient Problems: Problems Problem Status Onset Severe low back pain Acute Fever Acute Pain management Acute Renal cell carcinoma Acute
[2018-06-07] MEDS: GABAPENTIN 400 MG CAP PO SCH ×3 (08:08→22:11)
[2018-06-07] MEDS: FLUoxetine 20 MG CAP PO SCH (08:19)
[2018-06-07] MEDS ORDERED: KETAMINE IVP ONE ×2 (09:18→11:50)
--- NOTE | 2018-06-07 09:57 | PDMN ---
Medical Necessity Medical necessity: Pt meets inpt criteria per MD order and MCG M-63, Back Pain. 53 y/o w/hx renal cell cancer w/left iliopsoas mass w/S1 nerve root compression admitted w/severe back pain associated w/N/V requiring IV Dilaudid SWINE GENETICS RESEARCHER for pain , IV antiemetics, neurosurg consult, onc consult pending, PT eval pending. Anticipate>2MN for ongoing eval/management of acute, severe back pain.
--- NOTE | 2018-06-07 11:36 | HOSPPROG ---
Hospitalist Progress Note Assessment/Plan: 53yo M with metastatic renal cell carcinoma with large retroperitoneal mass with chronic pain on very large amounts of opioids presents with acute exacerbation of back pain. Also has DDD and S1 nerve compression although less likely contributing. Has several admissions for similar pain in the past. Had epidural spine injection on last admission. Dilaudid COMMUNICATION AND OUTREACH MANAGER not working. #Acute on chronic pain: - CT abd/pelvis w/contrast to see if progression of RP mass - Trial ketamine 0.1mg/kg IV with telemetry/VS monitoring - Continue home opioids: scheduled opana and methadone, and oxycodone IR PRN - Continue gabapentin (max dose) - Discontinue dilaudid COMMUNICATION AND OUTREACH MANAGER while trying ketamine - Bowel regimen - Neurosurgery has previously evaluated: no surgical options for mass - Discussed with oncology: not candidate for XRT - He has been set up with palliative care as outpatient but, per patient, this has been somewhat disjointed #Metastatic renal cell carcinoma: On 5th line therapy. Followed by Dr Oakley. - Oncology aware of admission - Query whether hospice care may be needed soon #Hypothyroid: Continue home LT4 #T2DM: Diet controlled VTE ppx: SCDs Code: Full Dispo: Remain inpatient for management of pain with IV medications. Unsafe for discharge home. Subjective: Dilaudid COMMUNICATION AND OUTREACH MANAGER started overnight. Still having severe pain this morning which has him in tears. We tried a dose of ketamine which brought pain from 25/10 to 10/10. Prior to entering room, patient visualized walking from bed to chair. He currently endorses severe left low back pain radiating down left leg. Objective: Vital Signs Temp Pulse Resp BP Pulse Ox 36.8 C 99 18 168/95 H 94 06/07/18 10:03 06/07/18 10:03 06/07/18 10:03 06/07/18 10:03 06/07/18 10:03 Laboratory Results 06/06/18 16:50 06/06/18 16:50 06/06/18 06/07/18 06/08/18 05:59 05:59 05:59 Intake Total 1604 200 Balance 1604 200 - Physical Exam Constitutional: appears nourished, obese, uncomfortable (due to pain) Eyes: PERRL, anicteric sclera, EOMI Ears, Nose, Mouth, Throat: moist mucous membranes, hearing normal, ears appear normal, no oral mucosal ulcers Cardiovascular: regular rate and rhythym, no murmur, rub, or gallop Respiratory: no respiratory distress, no rales or rhonchi, clear to auscultation Gastrointestinal: normoactive bowel sounds, soft, non-tender abdomen, no palpable masses Skin: no rashes or abrasions, no fluctuance, no induration Musculoskeletal: full muscle strength, no muscle tenderness, normal joint ROM Neurologic: AAOx3, sensation intact bilaterally ICD10 Worksheet Patient Problems: Problems Problem Status Onset Severe low back pain Acute Fever Acute Pain management Acute Renal cell carcinoma Acute
[2018-06-07] MEDS ORDERED: LACTULOSE 20 GM/30 ML UDCUP PO PRN (11:42)
[2018-06-07] MEDS ORDERED: MAGNESIUM HYDROXIDE 30 ML UDCUP PO PRN (11:42)
[2018-06-07] MEDS ORDERED: BISACODYL 10 MG SUPP PR PRN (11:42)
[2018-06-07] MEDS ORDERED: POLYETHYLENE GLYCOL 3350 17 GM PKT PO PRN (11:42)
[2018-06-07] MEDS: SENNOSIDES/DOCUSATE SODIUM TAB PO SCH ×2 (12:25→22:12)
--- NOTE | 2018-06-07 13:21 | GCON ---
MEDICAL ONCOLOGY FOLLOWUP CONSULTATION DATE OF CONSULTATION: 06/07/2018 REASON FOR CONSULTATION: Ongoing management of metastatic renal cell carcinoma and pain. RECOMMENDATIONS: 1. Agree with 1 time dose of ketamine to see if it will help break his pain crisis. 2. During this hospitalization, I think we should try to get him more onto methadone for his long-acting narcotic pain management and hopefully get away from Opana. 3. We may need to increase his gabapentin. 4. He may need some dexamethasone to help break the pain crisis. 5. I would continue his Celebrex 200 mg twice a day. 6. I would repeat his CT of the abdomen and pelvis to assess the status of his metastatic renal cell carcinoma. His last scan was approximately 6 weeks ago, and in view of his increasing pain, I think we should try to determine whether he is responding to Cabometyx or not. 7. Depending on the status of his cancer and his limited options for therapy, it will be appropriate to do a palliative care consultation and determine whether palliative care as an outpatient is appropriate (he has had true palliative care), or whether he should transition to hospice. ASSESSMENT: This 53-year-old white male was diagnosed in 2011, with a very large left-sided renal cell carcinoma. He had a resection and had a very difficult postoperative course, but did not show evidence of metastatic disease until 2013. Since then, he has had extreme difficulty with retroperitoneal metastatic disease and very difficult to control pain. He has been on at least 5 lines of therapy for his metastatic disease. These include initial treatment with sunitinib. He has also been on everolimus, nivolumab, votrient, and most recently Cabometyx. He has not been on bevacizumab. He had an initial response to his most recent line of therapy with Cabometyx, but unfortunately developed significant cutaneous toxicity associated with full dose. He started 60 mg per day and then still had toxicity at 40 mg per day and then most recently has been on 20 mg per day. In addition to the patient's metastatic disease from his renal cell carcinoma, he has had significant issues with pain and also with ability to reliably take his medications on a schedule. He has had radiation for his metastatic disease , which was of minimal benefit. Over the course of the last 4 years, his pain medication requirement has gradually increased. He has been on Duragesic, OxyContin, and most recently a combination of Opana and methadone. The overall plan had been to change Opana to methadone for his long-term pain control. However, because of a variety of exacerbations in his pain and some episodes of nonadherence to his outpatient regimen, it has been difficult to manage. Most recently, I have been trying to arrange a consultation with Dr. Al Valentino at [facility] in [place]. This was requested last week, but has not been implemented as of yet. This can hopefully be arranged when the patient is ready for discharge from the hospital. HISTORY OF PRESENT ILLNESS: Please see assessment. PAST MEDICAL HISTORY: Remarkable for hypothyroidism. He has obstructive sleep apnea. He has had a history of hypercalcemia related to his malignancy. He has also had blisters on his feet develop secondary to Cabometyx. PAST SURGICAL HISTORY: Remarkable for his left nephrectomy. He has also had a ventral hernia repair. FAMILY HISTORY: Remarkable for his father and brother having had prostate cancer. His mother apparently also had a thyroidectomy at some point for unclear reasons. SOCIAL HISTORY: He is to . He has 2 children, Natan and January. 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 He is currently unemployed. He does have a history of smoking cigarettes, but quit over 20 years ago. REVIEW OF SYSTEMS: Remarkable primarily for his severe pain. The pain primarily involves his left flank and back. There is radiation into his periumbilical region. He is not reporting any nausea or vomiting at this time. He is able have regular bowel movements. PHYSICAL EXAMINATION: GENERAL: Reveals an alert, but uncomfortable appearing white male. He is rubbing the left side of his abdomen and rocking back and forth anteriorly and posteriorly in his chair. LUNGS: Clear to auscultation. CARDIAC: Shows a regular rhythm. ABDOMEN: Shows an obese abdomen. He does have normal bowel sounds. The left side of his abdomen is tender to palpation. EXTREMITIES: Lower extremities show 2+ edema. Thank you very much for allowing us to participate in this gentleman's ongoing oncologic management. /[id number]/MODL MTDD
[2018-06-07] MEDS ORDERED: IOPAMIDOL (ISOVUE-300) 100 ML BTL ONE (13:55)
[2018-06-07] MEDS: METHADONE HCL 10 MG TAB PO SCH ×2 (14:10→22:12)
--- NOTE | 2018-06-07 15:44 | ASMTCMCOM ---
CM Note CM Note Notes: Spoke with pt and in the room. Both admit struggling with depression related to pt's illness and chronic pain. states she must administer pain medications to pt to prevent "abuse" as pt has taken more pain medications than prescribed and then is confused and forgetful. is overwhelmed by pt's needs, pain and opioid use and states she finds it "difficult to reach out for help". Pt denies active suicide planning at this time, though admits to suicide ideation. also denies concern. CM suggested work with counselor and psychotherapist for both pt and for pain management and mindfulness techniques as well as for opioid dependence management and coping with chronic illness. Pt and given [facility] outpatient counseling center contact information. Pt is current with [facility] palliative care and provider's note suggests it may be appropriate to consider hospice services as well. Pt does not remember visit from palliative care RN and states she is not sure it was helpful but is agreeable to reaching out to them for more support. Pt and also amenable to home PT should that be recommended to help reduce pain. D/C Plan: HC PT, with hospice v palliative care pending PT eval Date Signed: 06/07/2018 03:43 PM Electronically Signed By:Marisela Bowers
[2018-06-07 16:00] LABS: PLATELET COUNT 463 10^3/uL (150-400)
[2018-06-07] MEDS: HYDROmorphONE/DILAUDID 6 MG/30 ML PCA IV PRN ×2 (18:27→23:02)
[2018-06-08] MEDS: HYDROmorphONE/DILAUDID 6 MG/30 ML PCA IV PRN ×2 (02:22→05:53)
[2018-06-08] MEDS: CABOZANTINIB S MALATE 20 MG PO SCH (03:58)
[2018-06-08] MEDS ORDERED: ACETAMINOPHEN 500 MG TAB PO SCH (04:30)
[2018-06-08] MEDS: ACETAMINOPHEN 500 MG TAB PO SCH ×3 (04:59→21:20)
[2018-06-08] MEDS: DIAZEPAM 5 MG TAB PO PRN ×3 (04:59→21:20)
[2018-06-08] MEDS: LEVOTHYROXINE 25 MCG TAB PO SCH (05:48)
[2018-06-08] MEDS: OXYMORPHONE PO SCH ×3 (05:48→21:19)
[2018-06-08] MEDS: METHADONE HCL 10 MG TAB PO SCH ×3 (05:48→21:19)
--- NOTE | 2018-06-08 10:03 | HOSPPROG ---
Hospitalist Progress Note Assessment/Plan: 53yo M with metastatic renal cell carcinoma with large retroperitoneal mass with chronic pain on very large amounts of opioids presents with acute exacerbation of back pain. Also has DDD and S1 nerve compression although less likely contributing. Has several admissions for similar pain in the past. Had epidural spine injection on last admission. #Acute on chronic pain: CT without significant change in RP mass, thus unclear etiology of acute crisis. - Discontinue dilaudid HYDROLOGICAL TECHNICAL OFFICER, not working - Retry dose of ketamine 0.1mg/kg - Continue home opioids: scheduled opana and methadone, and oxycodone IR PRN - Continue gabapentin (max dose) - Bowel regimen - Neurosurgery has previously evaluated: no surgical options for mass - Discussed with oncology: not candidate for XRT - Consult palliative care once here tomorrow - Had ashely discussion today about patient's patient, which I think a large component is existential #Left testicular pain: - US to evaluate #Metastatic renal cell carcinoma: On 5th line therapy. Followed by Dr Oakley. Has new R inguinal 2.5cm nodule on CT since 04/2018. - Oncology aware of admission - Query whether hospice care may be needed soon #Hypothyroid: Continue home LT4 #T2DM: Diet controlled VTE ppx: SCDs Code: Full Dispo: Remain inpatient for management of pain with IV medications. Subjective: Ketamine helped yesterday for awhile. Was able to have nice dinner with . Then had terrible night, "one of the worst of my life and was hoping for God to take me." Pain worst in left lower back and left groin/testicle area. Left testicle has been swollen for about a year. No urinary sxs. He doesn' t think the HYDROLOGICAL TECHNICAL OFFICER is helping at all. Objective: Vital Signs Temp Pulse Resp BP Pulse Ox 36.6 C 82 14 160/87 H 94 06/08/18 08:00 06/08/18 08:00 06/08/18 08:00 06/08/18 08:00 06/08/18 08:00 Laboratory Results 06/08/18 04:20 06/08/18 04:20 06/07/18 06/08/18 06/09/18 05:59 05:59 05:59 Intake Total 1604 800 Balance 1604 800 - Physical Exam Constitutional: other (intermittently uncomfortable due to the pain) Eyes: PERRL, anicteric sclera, EOMI Ears, Nose, Mouth, Throat: moist mucous membranes, hearing normal, ears appear normal, no oral mucosal ulcers Cardiovascular: regular rate and rhythym, no murmur, rub, or gallop Respiratory: no respiratory distress, no rales or rhonchi, clear to auscultation Gastrointestinal: normoactive bowel sounds, soft, non-tender abdomen, no palpable masses Genitourinary: other (left testicle larger in size than right and mildly tender , no palpable hernia, no overlying erythema, no testicular nodules) Skin: no rashes or abrasions, no fluctuance, no induration Neurologic: AAOx3, sensation intact bilaterally Psychiatric: depressed ICD10 Worksheet Patient Problems: Problems Problem Status Onset Severe low back pain Acute Fever Acute Pain management Acute Renal cell carcinoma Acute
[2018-06-08] MEDS ORDERED: HYDROmorphONE/DILAUDID 1 MG/ML INJ IVP PRN (10:21)
[2018-06-08] MEDS ORDERED: HYDROmorphONE/DILAUDID 2 MG/ML INJ IVP PRN (10:30)
[2018-06-08] MEDS: GABAPENTIN 400 MG CAP PO SCH ×3 (10:37→21:20)
[2018-06-08] MEDS: FLUoxetine 20 MG CAP PO SCH (10:37)
[2018-06-08] MEDS: SENNOSIDES/DOCUSATE SODIUM TAB PO SCH ×2 (10:38→21:20)
--- NOTE | 2018-06-08 14:50 | SOAPPROG ---
SOAP Progress Note Assessment/Plan: Assessment: Metastatic renal cell CA - I think the patient has shown worsening over the last 6 weeks with enlarging pelvic/retroperitoneal disease, sq nodules. I think we are at the point of diminishing returns as far as systemic chemo is concerned. I would suggest we ask for an XRT consult for any palliative options for pain control. I would also add dexamethasone to his current regimen of opiates/gabapentin/Celebrex/Valium in an attempt to get him on an outpatient regimen. I think a palliative care consultation is appropriate. He does have [facility] palliative care involved, but I think a change to the hospice status is appropriate. I discussed this with the patient and his . Plan: - Add dexamethasone - continue current regimen otherwise - XRT consult tomorrow - palliative care consult to help clarify goals and decide on palliative care vs. hospice as an outpatient. Subjective: "I had a terrible night last night - I wanted God to take me". He is more comfortable today. Objective: Vital Signs Temp Pulse Resp BP Pulse Ox 36.5 C 82 16 142/74 H 89 L 06/08/18 10:13 06/08/18 10:13 06/08/18 10:13 06/08/18 10:13 06/08/18 10:13 Laboratory Results 06/08/18 04:20 06/08/18 04:20 06/06/18 06/07/18 06/08/18 23:59 23:59 23:59 Intake Total 500 1304 600 Balance 500 1304 600 Physical Exam - Physical Exam General Appearance: other (Sitting in chair. is at the bedside. Asks appropriate questions.) Neuro/Psych: alert, oriented x 3, depressed affect ICD10 Worksheet Patient Problems: Problems Problem Status Onset Severe low back pain Acute Fever Acute Pain management Acute Renal cell carcinoma Acute
[2018-06-08] MEDS: DEXAMETHASONE 4 MG TAB PO SCH ×2 (17:53→23:55)
[2018-06-09] MEDS: OXYMETAZOLINE 30 ML NASAL SPRAY EACHNARE PRN ×2 (00:19→08:47)
[2018-06-09] MEDS: ACETAMINOPHEN 500 MG TAB PO SCH ×2 (04:21→11:08)
[2018-06-09] MEDS: DIAZEPAM 5 MG TAB PO PRN (04:21)
[2018-06-09] MEDS: CABOZANTINIB S MALATE 20 MG PO SCH (04:21)
[2018-06-09] MEDS: LEVOTHYROXINE 25 MCG TAB PO SCH (05:48)
[2018-06-09] MEDS: METHADONE HCL 10 MG TAB PO SCH ×2 (05:48→15:06)
[2018-06-09] MEDS: DEXAMETHASONE 4 MG TAB PO SCH ×2 (05:48→11:07)
[2018-06-09] MEDS: OXYMORPHONE PO SCH ×2 (05:49→15:31)
[2018-06-09 07:34] VITALS: BP 149/79
[2018-06-09] MEDS: FLUoxetine 20 MG CAP PO SCH (08:45)
[2018-06-09] MEDS: SENNOSIDES/DOCUSATE SODIUM TAB PO SCH (08:45)
[2018-06-09] MEDS: GABAPENTIN 400 MG CAP PO SCH ×2 (08:45→15:05)
--- NOTE | 2018-06-09 13:27 | GCON ---
RADIATION ONCOLOGY INPATIENT CONSULTATION DATE OF CONSULTATION: 06/09/2018 Consulting Service: Medical Oncology. REASON FOR CONSULTATION: Role for palliative radiation. PATIENT IDENTIFICATION: Alexandre is a 53-year-old gentleman with stage IV metastatic renal cell carcinoma status post initial left nephrectomy followed by multiple lines of systemic treatment, most recently on Cabometyx under the care of Dr. Ted Oakley. He was admitted a few days ago with a pain flare in his low back radiating down to his left leg, and I am being consulted regarding the role of radiation and management of that pain. HISTORY OF PRESENT ILLNESS: Alexandre was initially diagnosed in 2011 with a very large left renal cell carcinoma of his left kidney. He had a complete resection and no evidence of metastatic disease. He did have metastatic recurrence in 2013 with retroperitoneal lymph nodes, and has had chronic pain since that time. He has been on at least 5 lines of systemic therapy for his metastatic renal cell carcinoma and most recently was treated with Cabometyx under the care of Dr. Ted Oakley. A few days ago Alexandre reports acute on chronic low back pain radiating down his left pelvis down to his left leg. The narcotic pain medication he was taking at home was not helping and therefore he was brought to [facility] for further assessment. A CT abdomen and pelvis was performed with IV contrast on June 07, 2018. This revealed minimal increase in volume of a large left retroperitoneal mass involving the left iliopsoas compartment and minimal increased size of left anterior abdominal wall implant. New right inguinal hematoma versus metastasis. Minimally worse metastatic disease to T12 and L1 vertebral bodies and left L1 transverse process. No acute intraabdominal process. Cholelithiasis and right nephrolithiasis are unchanged. While in the hospital, Alexandre has been maintained on Tylenol, Decadron, and Valium , as well as Neurontin and Dilaudid. He is also started on methadone, morphine IV if needed, and oxycodone 30 mg by mouth every 4 hours as needed. 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 INTERVAL HISTORY: Since being admitted to the hospital, Alexandre had 2 very rough nights. However, last night he reports having much better pain relief, to the point where he rates it at 3 to 4/10. He attributes this to the Valium, Tylenol , and methadone. Once again, he said that the Dilaudid did not really help him out that much. Of note, he did receive a dose of ketamine upon first arriving to [facility] and this made him quite loopy, but he felt much pain relief from that. Last night, he said this is the best he has felt in a while, and he is able to ambulate around his room and hallway with minimal pain. At this point, he is quite comfortable with his pain control. REVIEW OF SYSTEMS: A complete review of systems obtained and is negative. Please see above. PAST MEDICAL HISTORY: 1. Metastatic renal cell carcinoma. Detailed above. 2. Hypothyroidism. 3. Obstructive sleep apnea. 4. Hypercalcemia. 5. Adverse reaction to Cabometyx, status post dose reduction. PAST SURGICAL HISTORY: 1. Left nephrectomy. 2. Ventral hernia repair. FAMILY HISTORY: His father and brother had prostate cancer. SOCIAL HISTORY: He is to , who was present via speaker phone on his cellphone today during my visit with him. He has 2 grown children, Natan in January. 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 He does have a history of smoking cigarettes remotely over 20 years ago. MEDICATIONS: Tylenol, Dulcolax, Celebrex, Decadron 4 mg by mouth every 4 hours , Valium, Prozac, Neurontin, Dilaudid, Cephulac, Synthroid, milk of magnesia, methadone, morphine, Zofran, oxycodone, Afrin, MiraLAX, senna. ALLERGIES: Lisinopril. PHYSICAL EXAMINATION: VITAL SIGNS: Blood pressure 149/79, heart rate 63, oxygen sats 94%, respiratory rate 17, temp 36.5. GENERAL: Alexandre is seen today sitting comfortably in his hospital chair in no acute distress, alert, oriented x3. CARDIOVASCULAR: Regular rate and rhythm. Normal S1, S2. No murmurs, rubs , or gallops. LUNGS: Clear to auscultation bilaterally. No wheezes, crackles , or rubs. ABDOMEN: Soft, nontender, nondistended. Bowel sounds are present. No masses or lymphadenopathy palpated. MUSCULOSKELETAL: With palpation of his lower back there is some tenderness to palpation along the left lumbar and sacral paraspinal regions that radiates down to his buttock. There are no masses or bony abnormalities felt in that location. NEUROLOGIC: Full neurologic exam deferred. He does have 3/5 strength in his left quadriceps muscles and 5/5 strength in his distal left leg muscle. Gait exam deferred. Full strength in his right lower extremity. IMAGING: Please see HPI above. PATHOLOGY: Metastatic renal cell carcinoma. ASSESSMENT AND PLAN: Alexandre is a 53-year-old gentleman with metastatic stage IV renal cell carcinoma with a primary initially of the left kidney status post left nephrectomy and multiple lines of systemic therapy for his metastatic disease. He was admitted to [facility] for an acute on chronic pain flare and I am being consulted regarding the role of palliative radiation in the management of his disease. I had a long discussion with Alexandre and his , , via the phone regarding the diagnosis and management of stage IV renal cell carcinoma. Alexandre seems to have some issues tolerating his most recent line of systemic therapy Cabometyx giving him blisters on his feet, and therefore the dose was reduced to help with the side affects. Dr. Oakley is requesting a full set of restaging scans or at least a CT of the chest to complement the abdomen and pelvis that he had upon admission to get a full sense of whether he is progressing on this line of chemotherapy. I did review the films today with Al, which show a very large locally aggressive retroperitoneal grouping of lymph nodes that measures approximately 16 cm in dimensions and has grown maybe slightly on the most recent line of chemotherapy. I think this well correlates to the side effects and pain that he is currently having. Encouragingly, Alexandre has had significant pain relief, possibly from the Valium and dexamethasone that was started recently, and is quite encouraged by his function and mobility at the moment. There was some question as to whether he had radiation before as that is mentioned in a note by Dr. Oakley. I confirmed with Al's that Dr. Trina Figueredo was planning to perform CyberKnife 2 years ago to the iliopsoas region, however, was not able to localize the gold fiducials that were placed and therefore this was never delivered and Alexandre therefore has not had any radiation. I discussed that the course of radiation that I would be recommending would be anywhere from 5-10 treatments and would be palliative in nature. I discussed that in general renal cell carcinoma is radio resistant and sometimes approaches like SBRT where we give high doses per treatment is often the best strategy possible. Given the size of this mass and the inability to precisely target one location that could alleviate his pain, I do not think an SBRT approach would be appropriate at this point in time. Unfortunately, traditional palliative regimens of 5-10 fractions would probably be ineffective for the size and bulk of this relative radio resistant histology. At this point, since Alexandre is feeling much better with his medical management, my recommendation is to continue with that medical management and systemic therapy to try to control his pain. If at any point his pain escalates to the point where narcotics are ineffective, we could revisit potentially a short course of radiation to his large bulky mass. However, once again, I do not think that he would have a high chance of pain relief from those regimens. Alexandre and are both comfortable with this recommendation to continue medical management and narcotic pain medications, and are encouraged to call my department or let Dr. Oakley know if they wish to re-discuss radiation in the outpatient setting. /[id number]/MODL MTDD
--- NOTE | 2018-06-09 15:29 | SOAPPROG ---
SOAP Progress Note Assessment/Plan: Assessment: Al is a 53 yo male with met RCC who was admitted for pain control. 1. MetRCC: He's seen multiple lines of therapy including mTOR, multiple TKI, PD1 and most recently cabozantanib. He had significant skin toxicity with Cabo. He is will f/u with [facility] this saturday. 2. Cancer related pain: He saw rad/onc and they recommended no XRT for palliative purposes. 06/09/18 15:25 Subjective: He reports improvement in his pain. It is down to a 3-4 out of 10. Otherwise no issues. Objective: Vital Signs Temp Pulse Resp BP Pulse Ox 36.5 C 63 17 149/79 H 94 06/09/18 07:32 06/09/18 07:32 06/09/18 07:32 06/09/18 07:32 06/09/18 07:32 Laboratory Results 06/08/18 04:20 06/08/18 04:20 06/08/18 06/09/18 06/10/18 05:59 05:59 05:59 Intake Total 800 1000 Balance 800 1000 General: Pleasant conversant NAD HEENT: OP clear, EOMI CV: RRR No mgr abdomen: Soft nt nd bs+ Skin: No skin lesions MSK: No cyanosis clubbing or edema ICD10 Worksheet Patient Problems: Problems Problem Status Onset Severe low back pain Acute Fever Acute Pain management Acute Renal cell carcinoma Acute
--- NOTE | 2018-06-09 16:15 | ASMTLACE ---
[facility] Length of stay for Answers: 4-6 days current admission Acuity / Level of Answers: Yes Care: Did the patient have an inpatient admission? Comorbidities - select Answers: Opioid dependence all that apply / Chronic pain Other Notes: Renal Cell Carcinoma # of Emergency department Answers: 5-8 visits in the last 6 months Social determinants Answers: History of substance abuse (ETOH, street drugs, prescription drugs, etc.) Mental health diagnosis (anxiety, depression, pers onality disorders, etc.) Score: 22 Date Signed: 06/09/2018 04:15 PM Electronically Signed By:CHADD Gallegos
--- NOTE | 2018-06-09 16:18 | ASDISCHSUM ---
Discharge Information Plan Status:Outpatient Palliative Care Medically Cleared to Leave: Discharge Date:06/09/2018 03:57 PM CM D/C Disposition: ADT D/C Disposition:Home, Routine, Self-Care Projected Discharge Date:06/09/2018 11:00 AM Transportation at D/C:Family Discharge Delay Reason: Follow-Up Date:06/09/2018 11:00 AM Discharge Slot: Final Diagnosis: Placement Information Referral Type:Palliative Care Referral ID:[id number] Provider Name:[facility] ([facility] Address 1:[address] [place] Address 2: City:[place] Selection Factors: State:[place] Patient Contact Information Contact Name:AYDEN Relationship: Address:[address] [place] [address] City:[place] Alternate Phone: State/Zip Code:[place] [address] Email: Financial Information Financial Class:BCOP Primary Plan Desc: OUT OF STATE [facility] Primary Plan Number:[id number] Secondary Plan Desc:MEDICARE INPATIENT Secondary Plan Number:[id number] Assessment Information LACE LACE Length of stay for Answers: 4-6 days current admission Acuity / Level of Answers: Yes Care: Did the patient have an inpatient admission? Comorbidities - select Answers: Opioid dependence all that apply / Chronic pain Other Notes: Renal Cell Carcinoma # of Emergency department Answers: 5-8 visits in the last 6 months Social determinants Answers: History of substance abuse (ETOH, street drugs, prescription drugs, etc.) Mental health diagnosis (anxiety, depression, pers onality disorders, etc.) Score: 22 Date Signed: 06/09/2018 04:15 PM Electronically Signed By:CHADD Gallegos [facility] Progress Note CM Note CM Note Notes: Spoke with pt and in the room. Both admit struggling with depression related to pt's illness and chronic pain. states she must administer pain medications to pt to prevent "abuse" as pt has taken more pain medications than prescribed and then is confused and forgetful. is overwhelmed by pt's needs, pain and opioid use and states she finds it "difficult to reach out for help". Pt denies active suicide planning at this time, though admits to suicide ideation. also denies concern. CM suggested work with counselor and psychotherapist for both pt and for pain management and mindfulness techniques as well as for opioid dependence management and coping with chronic illness. Pt and given [facility] outpatient counseling center contact information. Pt is current with [facility] and provider's note suggests it may be appropriate to consider hospice services as well. Pt does not remember visit from palliative care RN and states she is not sure it was helpful but is agreeable to reaching out to them for more support. Pt and also amenable to home PT should that be recommended to help reduce pain. D/C Plan: PT, with hospice v palliative care pending PT eval Date Signed: 06/07/2018 03:43 PM Electronically Signed By:Marisela Bowers [facility] CM Progress Note CM Note CM Note Notes: Pt medically stable for d/c home with continued care of [facility]. Suzette with [facility] met with pt and (on phone) and provided information on hospice. Suzette reports pt wants to meet with oncology Saturday and then decided on hospice admission which would be next week, hospice order sent to [facility]. Pt family transports home. Date Signed: 06/09/2018 04:17 PM Electronically Signed By:CHADD Gallegos Intervention Information
--- NOTE | 2018-06-09 21:14 | PDDCSUM ---
Discharge Summary Discharge Summary: Date of Admission: 06/06/2018 Date of Discharge: 06/09/2018 Consultants: oncology, radiation oncology Procedures/Studies: CT abd/pelvis Disposition: home with palliative care Discharge Diagnoses: 1. Acute flare of chronic cancer pain 2. Metastatic renal cell cancer 3. T2DM 4. Hypothyroid Brief Hospital Course: 53yo M with metastatic renal cell carcinoma on 5th line chemotherapy (that had been recently dose reduced due to dermatologic side effects), frequent admissions for flares of chronic cancer pain presented with acute pain crisis. He was initially on dilaudid PET RESORT CONCIERGE but this didn't help as his opioid receptors are likely saturated given the large amounts of opioids he is on chronically. He received a dose of ketamine which seemed to help his pain somewhat; however, valium and dexamethasone really seemed to best control his pain and he was discharge on these. A CT abd/pelvis did show progression of his disease from 2017 scan. His oncologist, Dr Oakley, met with the patient and recommended he consider hospice care. He will discuss this with palliative care ([facility]) at home. Radiation oncology also met with patient but do not think palliative XRT would be helpful. For now, he will continue on his chemotherapy. Medications: Please refer to EMR for complete list. Changes this admission include addition of valium and dexamethasone and increase in gabapentin to max dose. Follow Up Plan: 1. Clinic visit with Dr Oakley to address ongoing chemotherapy 2. Palliative care to discuss hospice with patient and Physical Exam: Vitals reviewed, stable. Alert and oriented without focal neurologic deficit. RRR without m/r/g, lung clear, abdomen soft, no LE edema.
== END 2018-06-09 15:57 | disposition home or self-care (01) | DRG 948 ==
LOC: F3N 17:53
PROVIDERS: ADMIT Family Medicine; ATTEND Family Medicine
DX: G89.3 Neoplasm related pain (acute) (chronic) (principal); C79.51 Secondary malignant neoplasm of bone; C78.6 Secondary malignant neoplasm of retroperitoneum and peritoneum; Z85.528 Personal history of other malignant neoplasm of kidney; M62.89 Other specified disorders of muscle; E11.9 Type 2 diabetes mellitus without complications; N50.819 Testicular pain, unspecified; F11.20 Opioid dependence, uncomplicated; G47.33 Obstructive sleep apnea (adult) (pediatric); E03.9 Hypothyroidism, unspecified; E66.9 Obesity, unspecified; Z68.39 Body mass index [BMI] 39.0-39.9, adult; Z51.5 Encounter for palliative care; Z90.5 Acquired absence of kidney; Z87.891 Personal history of nicotine dependence
CPT/HCPCS: 97116-GP; 97162-GP; 97530-GP; G8978-GP-CI; G8979-GP-CH; J1170; J2405; Q9967

== ENCOUNTER 2018-08-03 15:40 | Inpatient (IN) | payer BC, OTHER ==
--- NOTE | 2018-08-03 16:14 | EDPHY ---
HPI/HX/ROS/PE/MDM Narrative: CHIEF COMPLAINT: Bilateral leg pain HPI: The patient is a 53 y/o male wit a history of NIDDM, metastatic renal cell carcinoma, and sciatica complaining of bilateral leg pain onset around a month ago. The pain, redness, and swelling in his left leg initially started around a month ago while on vacation. Around 3 weeks ago he saw his PCP, ALFA Dalal and had a zinc oxide wrap placed for 3 days. This initially improved his symptoms. Around 1.5 weeks ago, but the symptoms did not respond to the zinc oxide wrap. Around 1 week ago he developed the redness, swelling, and infection of his right leg. He saw his oncologist, Dr. Oakley, 4 days ago, but did not unwrap his leg at this time. His came home from a trip that night and noticed that the patient was acutely more confused than normal. He was not febrile at this time. On Saturday, the patient saw his PCP again and was advised to present to the wound clinic. However, the patient was unable to get an appointment for over a week. The patient has taken Clindamycin for several weeks. No headache, chest pain, shortness of breath, abdominal pain, numbness, paresthesias. REVIEW OF SYSTEMS: Aside from elements discussed in the HPI, a comprehensive 10 system review of systems is otherwise negative. PMH: Abdominal hernia repair, chronic pain, NIDDM, metastatic renal cell cancer with left nephrostomy, sciatica SOCIAL HISTORY: Lives in [place], at bedside, not employed PHYSICAL EXAM: General: Patient is alert, in no acute distress. ENT: Eyes are normal to inspection. Dry mucous membranes. Neck: Normal inspection. Full range of motion. Respiratory: No respiratory distress. Breath sounds normal bilaterally. Cardiovascular: Regular rate and rhythm. Strong peripheral pulses. Normal cap refill. Abdomen: The abdomen is nontender to palpation. There are no peritoneal signs. There are normal bowel sounds. Back: Normal to inspection. No tenderness to palpation. Skin: Normal color. No rash. Warm and dry. Extremities: 4+ pedal edema bilaterally with diffuse erythema primarily on entirety of left calf but also right. 8cm area of purulence present medial aspect of lower left calf with active discharge. Multiple scattered pustules throughout left calf. Neuro: Oriented x3. Normal motor function. Normal sensory function. ED Course: 1709: Reassessed patient and discussed laboratory findings. Patient's WBC is 20 and lactate is 5.7. His initial heart rate was 117 and BP was 160/85. I also discussed the probability of needing a central line and admission, which the patient is comfortable with. 173: I consulted with hospitalist service, Dr. Cr accepts admission of this patient. Patient's heart rate has decreased to the 90's after 1L IV NS. Blood cultures ordered; vancomycin and additional IV NS administered. A central line will not be placed at this time. MDM: This patient presents with BLE purulent cellulitis, not responding to outpatient clindamycin, and complicated by oral chemotherapy use secondary to metastatic kidney cancer. He has been seen by several outpatient providers over the last week without significant change in plans - it sounds like his condition deteriorated significantly when his went out of town. Given appearance of legs, report of AMS at home and dry mucous membranes, this patient clearly has severe sepsis, and initial lactate is elevated to range of septic shock. However, he is afebrile here in the ED, not confused, his BP was actually hypertensive on arrival and his HR is responding well to IVNS. Initial repeat lactate is still elevated but improved and patient has only received a fraction of recommended fluid bolus. I discussed this situation in detail with Dr. Cr, the accepting hospitalist, and we are both in agreement at this point that the patient does not need pressors, and thus does not require emergent central line placement at this time. - Data Points Laboratory Results: Laboratory Results 08/03/18 16:20 08/03/18 16:20 08/03/18 08/03/18 08/03/18 17:15 16:40 16:20 WBC RBC Hgb Hct MCV MCH MCHC RDW Plt Count MPV Neut % (Auto) Lymph % (Auto) [place] % (Auto) Eos % (Auto) Baso % (Auto) Nucleat RBC Rel Count Absolute Neuts (auto) Absolute Lymphs (auto) Absolute Monos (auto) Absolute Eos (auto) Absolute Basos (auto) Absolute Nucleated RBC Immature Gran % Seg Neutrophils % Band Neutrophils % Lymphocytes % Monocytes % Eosinophils % Basophils % Metamyelocytes % Myelocytes % Promyelocytes % Blast Cells % Immature Gran # Absolute Seg Neuts Absolute Band Neuts Absolute Lymphocytes Absolute Monocytes Absolute Eosinophils Absolute Basophils Absolute Metamyelocyte Absolute Myelocytes Absolute Promyelocytes Absolute Plasma Cells Nucleated RBCs Absolute Blast Cells Plasma Cells % Platelet Estimate Polychromasia Hypochromasia Microcytic Cells Target Cells Oval Macrocytes Smear Review By ABG Lactic Acid 5.7 mmol/L H mmol/L (0.5-1.6) VBG Lactic Acid 5.0 mmol/L H mmol/L (0.7-2.1) Sodium 135 mEq/L mEq/L (135-145) Potassium 5.3 mEq/L H mEq/L (3.3-5.0) Chloride 100 mEq/L mEq/L (97-110) Carbon Dioxide 21 mEq/l L mEq/l (22-31) Anion Gap 14 mEq/L mEq/L (6-14) BUN 30 mg/dL H mg/dL (7-23) Creatinine 0.7 mg/dL mg/dL (0.7-1.3) Estimated GFR > 60 Glucose 236 mg/dL H mg/dL (70-100) Calcium 9.3 mg/dL mg/dL (8.5-10.4) 08/03/18 16:20 WBC 20.54 10^3/uL H 10^3/uL (3.80-9.50) RBC 4.75 10^6/uL 10^6/uL (4.40-6.38) Hgb 11.9 g/dL L g/dL (13.7-17.5) Hct 38.9 % L % (40.0-51.0) MCV 81.9 fL fL (81.5-99.8) MCH 25.1 pg L pg (27.9-34.1) MCHC 30.6 g/dL L g/dL (32.4-36.7) RDW 19.9 % H % (11.5-15.2) Plt Count 350 10^3/uL 10^3/uL (150-400) MPV 9.7 fL fL (8.7-11.7) Neut % (Auto) Not Reported Lymph % (Auto) Not Reported [place] % (Auto) Not Reported Eos % (Auto) Not Reported Baso % (Auto) Not Reported Nucleat RBC Rel Count Not Reported Absolute Neuts (auto) Not Reported Absolute Lymphs (auto) Not Reported Absolute Monos (auto) Not Reported Absolute Eos (auto) Not Reported Absolute Basos (auto) Not Reported Absolute Nucleated RBC Not Reported Immature Gran % Not Reported Seg Neutrophils % 78.6 % % Band Neutrophils % 5.1 % % Lymphocytes % 10.2 % % Monocytes % 4.1 % % Eosinophils % 0.0 % % Basophils % 0.0 % % Metamyelocytes % 1.0 % % Myelocytes % 1.0 % % Promyelocytes % 0.0 % % Blast Cells % 0.0 % % Immature Gran # Not Reported Absolute Seg Neuts 16.14 10^3/uL H 10^3/uL (1.70-6.50) Absolute Band Neuts 1.05 10^3/uL H 10^3/uL (0.00-0.70) Absolute Lymphocytes 2.10 10^3/uL 10^3/uL (1.00-3.00) Absolute Monocytes 0.84 10^3/uL H 10^3/uL (0.30-0.80) Absolute Eosinophils 0.00 10^3/uL L 10^3/uL (0.03-0.40) Absolute Basophils 0.00 10^3/uL L 10^3/uL (0.02-0.10) Absolute Metamyelocyte 0.21 10^3/mL H 10^3/mL (0.00-0.00) Absolute Myelocytes 0.21 10^3/mL H 10^3/mL (0.00-0.00) Absolute Promyelocytes 0.00 10^3/uL 10^3/uL (0.00-0.00) Absolute Plasma Cells 0.00 10^3/uL 10^3/uL (0.00-0.00) Nucleated RBCs 11.2 /100 WBC H /100 WBC (0-0) Absolute Blast Cells 0.00 10^3/uL 10^3/uL (0.00-0.00) Plasma Cells % 0.0 % % Platelet Estimate ADEQUATE (ADEQ) Polychromasia 1+ H Hypochromasia 1+ H Microcytic Cells 1+ H Target Cells 1+ H Oval Macrocytes 2+ H Smear Review By Pending ABG Lactic Acid VBG Lactic Acid Sodium Potassium Chloride Carbon Dioxide Anion Gap BUN Creatinine Estimated GFR Glucose Calcium Medications Given: Discontinued Medications Sodium Chloride (Ns) 1,000 mls @ 0 mls/hr IV ONCE ONE PRN Reason: Wide Open Stop: 08/03/18 16:32 Last Admin: 08/03/18 16:31 Dose: 1,000 mls Sodium Chloride (Ns) 1,000 mls @ 0 mls/hr IV ONCE ONE PRN Reason: Wide Open Stop: 08/03/18 16:56 Last Admin: 08/03/18 16:57 Dose: 1,000 mls Vancomycin/Sodium Chloride (Vancomycin 1 Gm (Premix)) 250 mls @ 250 mls/hr IV EDNOW ONE PRN Reason: Protocol Stop: 08/03/18 18:11 Last Admin: 08/03/18 17:22 Dose: 250 mls Sodium Chloride (Ns) 1,000 mls @ 0 mls/hr IV ONCE ONE; Wide Open PRN Reason: Protocol Stop: 08/03/18 17:28 Last Admin: 08/03/18 17:35 Dose: 1,000 mls Sodium Chloride (Ns) 1,000 mls @ 0 mls/hr IV ONCE ONE; Wide Open PRN Reason: Protocol Stop: 08/03/18 17:29 Last Admin: 08/03/18 17:34 Dose: 1,000 mls General Time Seen by Provider: 08/03/18 16:13 Initial Vital Signs: Initial Vital Signs Temperature (C) 36.9 C 08/03/18 15:43 Heart Rate 117 H 08/03/18 15:43 Respiratory Rate 16 08/03/18 15:43 Blood Pressure 160/85 H 08/03/18 15:43 O2 Sat (%) 91 L 08/03/18 15:43 O2 Delivery Mode Room Air Allergies/Adverse Reactions: lisinopril Allergy (Verified 08/03/18 17:32) Home Medications: Medication Instructions Recorded Levothyroxine [Synthroid 25 mcg 25 mcg PO DAILY06 01/17/18 (*)] Methadone HCl [Methadone 5 mg (*)] 20 mg PO 06,14,22 01/17/18 Cabozantinib S-Malate [Cabometyx] 20 mg PO DAILY@04 04/22/18 FLUoxetine [Prozac 20 MG (*)] 20 mg PO DAILY 04/22/18 oxyCODONE IR [Oxycodone Ir (*)] 30 mg PO Q4 PRN #120 tab 04/24/18 Oxymorphone HCl [Opana ER] 80 mg PO TID@,,05/06/18 celeCOXIB [Celebrex (*)] 200 mg PO BID 05/06/18 Dexamethasone [Decadron 4 MG (*)] 8 mg PO BID #120 tab 06/09/18 Diazepam [Valium 5 MG (*)] 5 - 10 mg PO Q6HRS PRN #30 tab 06/09/18 Acetaminophen [Tylenol ES 500 mg 1,000 mg PO BID 08/03/18 (*)] Gabapentin [Neurontin 300 MG (*)] 900 mg PO TID@,,08/03/18 Departure - Departure Disposition: [facility] Inpatient Acute Clinical Impression: Septic shock Condition: Serious Report Scribed for: Renzo Samayoa Report Scribed by: Estephania Smyth Date of Report: 08/03/18 Time of Report: 16:14 Physician Review and Approval Statement: Portions of this note were transcribed by an ED scribe. I personally performed the history, physical exam, and medical decision making; and confirm the accuracy of the information in the transcribed note.
[2018-08-03] MEDS ORDERED: NS 1,000 ML IV ONE ×4 (16:31→17:28)
[2018-08-03 16:34] LABS: PLATELET COUNT 350 10^3/uL (150-400)
[2018-08-03] MEDS ORDERED: VANCOMYCIN HCL/NORMAL SALINE 250 ML IV ONE (17:12)
[2018-08-03] MEDS ORDERED: LORazepam 2 MG/ML INJ IVP PRN (18:47)
[2018-08-03] MEDS ORDERED: ONDANSETRON 4 MG/2 ML VIAL IVP PRN (18:47)
[2018-08-03] MEDS ORDERED: ONDANSETRON DISINTEGRATING 4 MG TAB PO PRN (18:47)
[2018-08-03] MEDS ORDERED: oxyCODONE IR 5 MG TAB PO PRN (18:47)
[2018-08-03] MEDS ORDERED: PROMETHAZINE HCL 25 MG/ML INJ IVP PRN (18:47)
[2018-08-03] MEDS ORDERED: LORazepam 0.5 MG TAB PO PRN (18:47)
[2018-08-03] MEDS: DIAZEPAM 5 MG TAB PO PRN (19:39)
[2018-08-03] MEDS: ACETAMINOPHEN 325 MG TAB PO PRN (19:39)
[2018-08-03] MEDS: DEXAMETHASONE 4 MG TAB PO SCH (19:40)
[2018-08-03] MEDS: HYDROmorphONE/DILAUDID 1 MG/ML INJ IVP PRN (19:40)
--- NOTE | 2018-08-03 20:34 | PDGENHP ---
History and Physical - Chief Complaint leg swelling and weakness - History of Present Illness 53 yo M with PMH of metastatic renal cell carcinoma with associated chronic pain with continuous narcotic use and dependency presenting with complaints of 1 week of significantly increased leg swelling and pain along with pus spontaneously draining from the skin especially on the left leg. He notes that the swelling really only started a couple of weeks ago as far as he can tell and got much worse over the last week. He notes that along with that he has become very weak and has been having a hard time walking. He has had chills but is not aware of having fever. He has not had chest pain or cough, no sob, no n/v , no urinary changes. He has never noticed swelling in his legs like this in the past. He was hospitalized fairly recently for a pain flare from his RCC and at that time it was not felt that radiation would likely be of much benefit in controlling his bulky retroperitoneal mass and LAD. He has been on at least 5th line chemotherapy and was discharged on cabometyx which he had been on most recently. History Information - Allergies/Home Medication List Allergies/Adverse Reactions: lisinopril Allergy (Verified 08/03/18 17:32) Home Medications: Levothyroxine [Synthroid 25 mcg (*)] 25 mcg PO DAILY06 01/17/18 [Last Taken ] Methadone HCl [Methadone 5 mg (*)] 20 mg PO ,,01/17/18 [Last Taken 14:00] Cabozantinib S-Malate [Cabometyx] 20 mg PO DAILY@04 04/22/18 [Last Taken ] FLUoxetine [Prozac 20 MG (*)] 20 mg PO DAILY 04/22/18 [Last Taken 06/06/18] Oxymorphone HCl [Opana ER] 80 mg PO TID@05/06/18 [Last Taken 06/06/18 14:00] celeCOXIB [Celebrex (*)] 200 mg PO BID 05/06/18 [Last Taken 06/06/18 12:00] Acetaminophen [Tylenol ES 500 mg (*)] 1,000 mg PO BID 08/03/18 [Last Taken Unknown] Gabapentin [Neurontin 300 MG (*)] 900 mg PO TID@,,08/03/18 [Last Taken Unknown] I have personally reviewed and updated: family history, medical history, social history, surgical history - Past Medical History cancer (metastatic renal cell carcinoma), diabetes type 2 Additional medical history: metastatic renal cell carcinoma with large left sided iliopsoas mass. DDD L spine. Chronic pain. Chronic continuous opioid dependence. hypothyroid - Surgical History Reports: cancer surgery Additional surgical history: abdominal hernia repair. nephrectomy - Family History Positive for: non-pertinent Additional family history: Father and brother with prostate cancer - Social History Smoking Status: Former smoker Alcohol Use: Rarely Drug Use: None Additional social history: , at bedside Review of Systems Review of Systems: ROS: 10pt was reviewed & negative except for what was stated in HPI & below Physical Exam Physical Exam: Temp Pulse Resp BP Pulse Ox 37 C 102 H 18 144/87 H 91 L 08/03/18 18:35 08/03/18 18:35 08/03/18 18:35 08/03/18 18:35 08/03/18 18:35 Constitutional: chronically ill appearing, uncomfortable Eyes: PERRL, anicteric sclera Ears, Nose, Mouth, Throat: moist mucous membranes, hearing normal Cardiovascular: no murmur, rub, or gallop, tachycardia, edema (3+ ble edema, weeping) Respiratory: no respiratory distress, reduced air movement Gastrointestinal: normoactive bowel sounds, soft, non-tender abdomen, no palpable masses Genitourinary: no bladder tenderness Skin: warm, erythema, other (wound present on left lower extremity medial malleolar region with scattered smaller wounds and pus draining ) Musculoskeletal: muscular tenderness, generalized weakness Neurologic: AAOx3 Psychiatric: interacting appropriately, not anxious, not encephalopathic Lab Data & Imaging Review 08/03/18 16:20 08/03/18 16:20 WBC 20.54 10^3/uL (3.80-9.50) H 08/03/18 16:20 RBC 4.75 10^6/uL (4.40-6.38) 08/03/18 16:20 Hgb 11.9 g/dL (13.7-17.5) L 08/03/18 16:20 Hct 38.9 % (40.0-51.0) L 08/03/18 16:20 MCV 81.9 fL (81.5-99.8) 08/03/18 16:20 MCH 25.1 pg (27.9-34.1) L 08/03/18 16:20 MCHC 30.6 g/dL (32.4-36.7) L 08/03/18 16:20 RDW 19.9 % (11.5-15.2) H 08/03/18 16:20 Plt Count 350 10^3/uL (150-400) 08/03/18 16:20 MPV 9.7 fL (8.7-11.7) 08/03/18 16:20 Neut % (Auto) Not Reported 08/03/18 16:20 Lymph % (Auto) Not Reported 08/03/18 16:20 [place] % (Auto) Not Reported 08/03/18 16:20 Eos % (Auto) Not Reported 08/03/18 16:20 Baso % (Auto) Not Reported 08/03/18 16:20 Nucleat RBC Rel Count Not Reported 08/03/18 16:20 Absolute Neuts (auto) Not Reported 08/03/18 16:20 Absolute Lymphs (auto) Not Reported 08/03/18 16:20 Absolute Monos (auto) Not Reported 08/03/18 16:20 Absolute Eos (auto) Not Reported 08/03/18 16:20 Absolute Basos (auto) Not Reported 08/03/18 16:20 Absolute Nucleated RBC Not Reported 08/03/18 16:20 Immature Gran % Not Reported 08/03/18 16:20 Seg Neutrophils % 78.6 % 08/03/18 16:20 Band Neutrophils % 5.1 % 08/03/18 16:20 Lymphocytes % 10.2 % 08/03/18 16:20 Monocytes % 4.1 % 08/03/18 16:20 Eosinophils % 0.0 % 08/03/18 16:20 Basophils % 0.0 % 08/03/18 16:20 Metamyelocytes % 1.0 % 08/03/18 16:20 Myelocytes % 1.0 % 08/03/18 16:20 Promyelocytes % 0.0 % 08/03/18 16:20 Blast Cells % 0.0 % 08/03/18 16:20 Immature Gran # Not Reported 08/03/18 16:20 Absolute Seg Neuts 16.14 10^3/uL (1.70-6.50) H 08/03/18 16:20 Absolute Band Neuts 1.05 10^3/uL (0.00-0.70) H 08/03/18 16:20 Absolute Lymphocytes 2.10 10^3/uL (1.00-3.00) 08/03/18 16:20 Absolute Monocytes 0.84 10^3/uL (0.30-0.80) H 08/03/18 16:20 Absolute Eosinophils 0.00 10^3/uL (0.03-0.40) L 08/03/18 16:20 Absolute Basophils 0.00 10^3/uL (0.02-0.10) L 08/03/18 16:20 Absolute Metamyelocyte 0.21 10^3/mL (0.00-0.00) H 08/03/18 16:20 Absolute Myelocytes 0.21 10^3/mL (0.00-0.00) H 08/03/18 16:20 Absolute Promyelocytes 0.00 10^3/uL (0.00-0.00) 08/03/18 16:20 Absolute Plasma Cells 0.00 10^3/uL (0.00-0.00) 08/03/18 16:20 Nucleated RBCs 11.2 /100 WBC (0-0) H 08/03/18 16:20 Absolute Blast Cells 0.00 10^3/uL (0.00-0.00) 08/03/18 16:20 Plasma Cells % 0.0 % 08/03/18 16:20 Platelet Estimate ADEQUATE (ADEQ) 08/03/18 16:20 Polychromasia 1+ H 08/03/18 16:20 Hypochromasia 1+ H 08/03/18 16:20 Microcytic Cells 1+ H 08/03/18 16:20 Target Cells 1+ H 08/03/18 16:20 Oval Macrocytes 2+ H 08/03/18 16:20 ABG Lactic Acid 5.7 mmol/L (0.5-1.6) H 08/03/18 16:40 VBG Lactic Acid 5.0 mmol/L (0.7-2.1) H 08/03/18 17:15 Sodium 135 mEq/L (135-145) 08/03/18 16:20 Potassium 5.3 mEq/L (3.3-5.0) H 08/03/18 16:20 Chloride 100 mEq/L (97-110) 08/03/18 16:20 Carbon Dioxide 21 mEq/l (22-31) L 08/03/18 16:20 Anion Gap 14 mEq/L (6-14) 08/03/18 16:20 BUN 30 mg/dL (7-23) H 08/03/18 16:20 Creatinine 0.7 mg/dL (0.7-1.3) 08/03/18 16:20 Estimated GFR > 60 08/03/18 16:20 Glucose 236 mg/dL (70-100) H 08/03/18 16:20 Calcium 9.3 mg/dL (8.5-10.4) 08/03/18 16:20 Assessment & Plan Assessment: Septic shock (Acute) 53 yo M with metastatic renal cell carcinoma with extensive retroperitoneal mass and LAD presenting with bilateral lower extremity edema and cellulitis/ septic shock. # septic shock: meeting criteria with leukocytosis, tachycardia and lactate of 5.7 originally. Has received appropriate IVF and BP is wnl, lactate trending down, will continue to trend. Source of infection purulent cellulitis as next. Cultures pending, monitoring in ICU. # purulent cellulitis: with left leg with significant purulent drainage in the setting of BLE edema presumably 2/2 extensive retroperitoneal and pelvic masses/ LAD, started on vanco as above, cultures pending. Will get wound care to evaluate for possible need for debridement. Will ask ID to evaluate in am. # metastatic renal cell carcinoma: with bulky retroperitoneal mass and significant pelvic LAD, iliopsoas mass and chronic pain, not felt to be amenable to radiation and currently on 5th line chemotherapy. Followed by [facility]. Will hold his oral chemo for now which was previously noted to be causing blisters to the feet and possibly contributing to above # chronic pain with continuous narcotic use and dependency: patient notes that he is currently relatively comfortable on his home regimen which will be continued, will add IV dilaudid in case he is unable to take PO # DM2: no DM meds on outpatient med list, suspect sugars being driven up in part by infection and steroids, will cover with sliding scale for now # hypothyroid: continue lt4 # DNR--reviewed with patient and his # IP care, patient in guarded condition and will require high level monitoring in SDU Patient new to my care. Old records reviewed/summarized above. Care plan reviewed with ER doctor including plans for abx. Further hx obtained from patients present at bedside. > 35 min critical care time spent in eval of labs, coordination of care, review of history and care plan with other MDs and at bedside.
[2018-08-03] MEDS: oxyCODONE IR 15 MG TAB PO PRN (20:46)
[2018-08-03] MEDS ORDERED: D50W 25 GM/50 ML SYR IVP PRN (20:54)
[2018-08-03] MEDS: GABAPENTIN 300 MG CAP PO SCH (21:15)
[2018-08-03] MEDS: METHADONE HCL 5 MG TAB PO SCH (21:15)
[2018-08-03] MEDS: OPANA 10 MG PO SCH (22:45)
[2018-08-03] MEDS ORDERED: NS 1,000 ML IV SCH (23:15)
[2018-08-03] MEDS ORDERED: INSULIN LISPRO 100 UNIT/ML SC ONE (23:30)
[2018-08-04] MEDS: METHADONE HCL 5 MG TAB PO SCH ×3 (04:45→21:04)
[2018-08-04] MEDS: GABAPENTIN 300 MG CAP PO SCH ×3 (04:45→21:03)
[2018-08-04] MEDS: LEVOTHYROXINE 25 MCG TAB PO SCH (04:45)
[2018-08-04] MEDS: OPANA 10 MG PO SCH ×3 (04:45→21:04)
[2018-08-04] MEDS: ACETAMINOPHEN 325 MG TAB PO PRN (04:45)
[2018-08-04] MEDS: VANCOMYCIN 1.5 GM in NS 250 ML IV SCH ×2 (04:48→16:30)
[2018-08-04 06:22] LABS: PLATELET COUNT 352 10^3/uL (150-400)
[2018-08-04] MEDS: oxyCODONE IR 15 MG TAB PO PRN ×3 (07:42→21:18)
[2018-08-04] MEDS: INSULIN LISPRO 100 UNIT/ML SC SCH ×3 (07:50→17:52)
[2018-08-04] MEDS: DEXAMETHASONE 4 MG TAB PO SCH ×2 (07:51→21:04)
[2018-08-04] MEDS: FLUoxetine 20 MG CAP PO SCH (07:51)
--- NOTE | 2018-08-04 08:31 | ASMTLACE ---
[facility] Acuity / Level of Answers: Yes Care: Did the patient have an inpatient admission? Comorbidities - select Answers: Any tumor (including all that apply lymphoma or leukemia) Diabetes (uncontrolled or controlled) Opioid dependence / Chronic pain Other Notes: Hypothyroid # of Emergency department Answers: 3-4 visits in the last 6 months Score: 14 Date Signed: 08/04/2018 08:31 AM Electronically Signed By:Venessa Wong
--- NOTE | 2018-08-04 08:39 | PDMN ---
Medical Necessity Medical necessity[place] [facility] [place] Sepsis A-3days: 53 yo presents w/ septic shock - WBC 20.5, tachy 110s, lactate 5.7 - secondary cellulitis BLE. Sepsis protocol started w/ IVF, IV antibx, BC pending, ID consult. Admit to IP status, meets [facility] criteria of sepsis w/ hemodynamic instability, anticipate>2MN for ongoing monitoring and treatment in SDU. Hx metastatic renal cell carcinoma on 5th line chemo, chronic pain, DM
--- NOTE | 2018-08-04 08:57 | ASMTCMCOM ---
CM Note CM Note Notes: 53yo male admitted for Leg swelling, Weakness, Renal cell CA, L iliopsoas mass. he has a Hx of DM-2, Hypothyroid, Chronic loww back pain-narc dependency, former smoker. Patient lives with his in [place]. PT has worked with him and at this time recommending HM with . He is DNR. CM to follow if needs change. Date Signed: 08/04/2018 08:56 AM Electronically Signed By:Madelin Gordon LCSW
[2018-08-04] MEDS: HYDROmorphONE/DILAUDID 1 MG/ML INJ IVP PRN (10:02)
[2018-08-04] MEDS: ENOXAPARIN 150 MG/ML SYR SC SCH ×2 (10:39→21:07)
--- NOTE | 2018-08-04 13:24 | WOCRNPDOC ---
WOCRN Advanced Assessment Note - Skin Integrity Problem, Advanced Assess Left Lower Leg Dressing Type: Open to Air, Other Other Dressing Type: absorbant chux underneath limb Closure Description: Not Approximated Exudate Amount: Excessive Exudate Color: Clear Exudate Characteristic(s): Serous Elisa Wound Tissue: Erythema, Hot, Swollen, Weeping, Painful/Tender Wound Bed Color: Brown, Yellow Wound Bed Constitution: Adhered Slough, Intact Purulent Blister Wound Edges: Attached, Well Defined Site Measurement - Head-to-Toe Length X Width X Depth (cm): medial ankle: [id number]. posterior calf:[id number] Skin Integrity Problem Comment: Patient with very painful open wounds to bilateral lower extremeties, left worse than right. In addition to the open wounds, there are scattered, purulent filled blisters throughout the lower extremeties. The plan was orignally to use honey as means for gentle autolytic debridement. NATHAN Tompkins informed me that the patient was unable to tolerate the honey so the orders were written to include both wound gel and silvasorb. Wound care will round again later this week. Right Lower Leg Dressing Type: Open to Air, Other Other Dressing Type: absorbant chux under Dressing Description: Shadowed Closure Description: Not Approximated Exudate Amount: Excessive Exudate Color: Clear Exudate Characteristic(s): Serous Elisa Wound Tissue: Swollen, Weeping, Painful/Tender Wound Bed Color: Yellow Wound Bed Constitution: Adhered Slough, Intact Purulent Blister Wound Edges: Attached Site Measurement - Head-to-Toe Length X Width X Depth (cm): [id number]
--- NOTE | 2018-08-04 14:55 | HOSPPROG ---
Hospitalist Progress Note Assessment/Plan: Subjective Follow-up on suspected cellulitis and acute finding of left lower extremity deep vein thrombosis. Patient was sitting in chair at the bedside this morning his was present with as well. No complaints of shortness of breath. I reviewed the case with Infectious Disease as well. Her reviewed the finding of an acute left lower extremity deep vein thrombosis with the patient and his . I discussed that we would start anticoagulation to address this. He has no symptoms to suggest a pulmonary embolism such is pleuritic-type chest pain, shortness of breath, or chest pain. Objective Vital signs as detailed below Exam General-awake alert conversant no acute distress, sitting in chair at the bedside Heart-regular rate and rhythm no murmurs Lungs-Clear to auscultation with normal respiratory effort Abdomen-soft nontender nondistended normal bowel sounds -no Dias catheter in place Extremities-generous pitting edema both lower extremities, slightly worse on left as compared to the right, erythema noted on the left up until just below the level of the knee with open skin with overlying purulence Skin-as above Labs as detailed below Assessment plan Sepsis-possible. May be related to suspected cellulitis. Improved parameters with lactic acid trending down from 5.8 to 5.0. White blood cell count has trended down slightly as well from 20-19. Cultures currently pending. Cellulitis-possible verses erythema changes secondary to deep vein thrombosis. Continue topical wound care. Deep vein thrombosis-acute. Left lower extremity. Lovenox at 130 mg every 12 hr ordered. Suspect his underlying cancer as a risk factor so may want to consider indefinite anticoagulation. Lower extremity edema-echocardiogram for further evaluation but I suspect his edema is largely due to his metastatic renal cell carcinoma which may be interfering with lymphatic drainage of lower extremities. Acute hypoxic respiratory failure-patient is needing a small amount of oxygen for normal saturations. This may be secondary to edema. Wean as able. Hyperkalemia-uncertain etiology. Await recheck. Diabetes mellitus type 2-continue sliding scale insulin. Hypothyroidism-continue current dosing of levothyroxine. Renal cell carcinoma-metastatic. Further recommendations per Oncology. Disposition-continue work with PT and OT. I would anticipate returning home with his when medically clear. Objective: Vital Signs Temp Pulse Resp BP Pulse Ox 36.2 C 95 20 148/61 H 93 08/04/18 11:55 08/04/18 11:55 08/04/18 11:55 08/04/18 11:55 08/04/18 11:55 Laboratory Results 08/04/18 06:07 08/04/18 13:25 08/03/18 08/04/18 08/05/18 05:59 05:59 05:59 Intake Total 5265 1100 Output Total 350 Balance 4915 1100 ICD10 Worksheet Patient Problems: Problems Problem Status Onset Septic shock Acute Fever Acute Pain management Acute Renal cell carcinoma Acute Severe low back pain Acute
--- NOTE | 2018-08-04 18:50 | GCON ---
CRITICAL CARE CONSULTATION 08/04/18 REASON FOR CONSULTATION: Sepsis, cellulitis, DVT in a patient with metastatic renal cell carcinoma. HISTORY: The patient is a very pleasant 53-year-old gentleman with known metastatic renal cell carcinoma. He was admitted with increasing bilateral lower extremity swelling and pain with some areas of skin weeping. On admission , he was found to have cellulitis associated with the swelling, leukocytosis, elevated lactate, and tachycardia. He was not hypotensive. He was hydrated per the sepsis protocol and started on antibiotics. He was admitted to the intensive care unit on step-down status. He has a history of metastatic renal cell carcinoma related to his abdomen, chronic pain, and narcotic use. He is a type 2 diabetic. Following admission, ultrasound of his left lower extremity showed a DVT in the proximal femoral vein extending to the groin. No clot was seen on the right. He was anticoagulated with full-dose Lovenox. Following his admission yesterday, he has felt better with initial therapies overnight. He does have persistent pain, remains somewhat lethargic. He is off oxygen. He states he is sleepy. PAST MEDICAL HISTORY: Remarkable for issues related to the metastatic renal cell carcinoma. He is on 5th line chemotherapy per Dr. Oakley. This is currently being held. He does have mild type 2 diabetes, chronic pain and narcotic use secondary to the metastatic disease throughout his abdomen and is hypothyroid, on replacement. He is DNR per wishes of both he and his . Home medications include oxycodone, Opana, methadone, Decadron, Neurontin, Prozac, Valium, Synthroid, cabozantinib, and Tylenol. DRUG ALLERGIES: Lisinopril. SOCIAL HISTORY: , DNR. PHYSICAL EXAMINATION: GENERAL APPEARANCE: Reveals a gentleman who is somnolent , but arouses. He is conversant. VITAL SIGNS: Blood pressure is 148/61, heart rate 95 with sinus rhythm on the monitor. Respiratory rate is 20. He is afebrile. On room air saturations are 93%. HEENT: Remarkable for somewhat dry mucous membranes. There is no obvious jugular venous distention. Breath sounds are diminished bilaterally. Some nonspecific bibasilar rales and decreased breath sounds are noted. HEART: Regular in rate and rhythm. Heart tones are distant. There is no obvious gallop. ABDOMEN: Overweight, soft, and nontender. Bowel sounds are diminished but present. EXTREMITIES: Both lower extremities are very edematous. They are wrapped with gauze. There is some oozing through the gauze. Both extremities are tender to palpation. NEUROLOGIC: Nonfocal. DATABASE: White blood cell count is elevated, hematocrit is 37. Platelets are normal. Repeat lactate this morning was 5.0, marginally decreased. Sodium is 137, potassium 5.0, CO2 20, BUN 27 with a creatinine 0.7. Glucose is 181, calcium 8.8. Blood cultures are negative to date. ASSESSMENT: 1. Cellulitis. Severe, bilateral lower extremity, associated with edema. Sepsis present on admission. However, blood pressure was not low. He is being treated with vancomycin. 2. Deep venous thrombosis, left lower extremity. This is fairly extensive, but interestingly, right and left lower extremities are both significantly swollen. He is on full-dose enoxaparin. 3. Sepsis. Lactate remains elevated. However, signs and symptoms of sepsis otherwise are resolving. Heart rate has come down. Intravenous fluids are being continued. 4. Metastatic renal cell carcinoma. He is do not resuscitate per advanced directives. He has associated prior chronic pain secondary to metastases throughout his abdomen, pelvis, and retroperitoneal area. 5. Type 2 diabetes. Glucoses are mildly elevated. He is on sliding scale insulin coverage. This will be continued. 6. Metabolic: Hyperkalemia. This is without renal failure. Potassium will be followed. PLAN AND RECOMMENDATIONS: The patient will be kept in the intensive care unit on step-down status. Intravenous fluids will be continued. Vancomycin will be continued. Laboratory will be followed. Appropriate pain management will be continued. Full-dose anticoagulation with Lovenox is being given. Cultures will be awaited. Wound Care is following the patient. Further plans and recommendations will be made based on his progress over the next 12-24 hours. /[id number]/MODL MTDD
--- NOTE | 2018-08-04 19:14 | GCON ---
ONCOLOGY CONSULT PRIMARY ONCOLOGIST: Dr. Ted Oakley. REASON FOR VISIT: Evaluation and management of metastatic renal cell carcinoma. HISTORY OF PRESENT ILLNESS: The patient is a 53-year-old gentleman who was diagnosed in 2011 with a large left-sided renal cell carcinoma. He underwent resection with a difficult postop course. He did not develop metastatic disease until 2013, and since then, he has had trouble with disease recurrence in his retroperitoneum and difficulty with pain control. He has had sunitinib, everolimus, Votrient, nivolumab, and most recently has been on Cabometyx. Initially had a response to the Cabometyx, but had some difficulties tolerating the standard dose and more recently has been on a lower dose. He has been on the drug since December, and in May, was showing some signs of progression, but he wanted to give it a little more time. He was admitted in May with pain control issues. He came in through the ER with increasing lower extremity swelling for the last couple weeks, along with ulcers on his legs and draining purulent material. He has had the leg ulcers now for some time, being treated outpatient, I think through his primary care provider. When he came in, he had noted some chills, but denied fever. No chest pain or trouble breathing. His pain had significantly increased. While here, he has had a Doppler ultrasound, which showed a DVT in the left groin and upper thigh, but no clot on the right. He was started on anticoagulation. ALLERGIES: He is allergic to lisinopril. HOME MEDICATIONS: Include oxycodone 30 mg every 4 hours, oxymorphone 80 mg 3 times daily, celecoxib 200 mg twice daily, methadone 20 mg 3 times daily, levothyroxine 25 mcg daily, gabapentin 900 mg 3 times daily, fluoxetine 20 mg daily, diazepam 5-10 mg as needed, dexamethasone 8 mg twice daily, cabozantinib 20 mg daily, and acetaminophen as needed. PAST MEDICAL HISTORY: Chronic illnesses remarkable for low thyroid, sleep apnea , and blisters on his feet due to the Cabometyx at the higher dose. He also has renal cell carcinoma, as per HPI. PAST SURGICAL HISTORY: Remarkable for left nephrectomy and a ventral hernia repair. FAMILY HISTORY: Significant for prostate cancer in father and brother. SOCIAL HISTORY: He is , has 2 children. 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 He previously smoked cigarettes in the past, but quit 20 years ago. REVIEW OF SYSTEMS: Ten-point review of systems performed. Pertinent positives as per HPI, otherwise negative. PHYSICAL EXAM: VITAL SIGNS: Temperature is 36.2, pulse 79, blood pressure 121/ 57. He has not had a fever since in the hospital. GENERAL: Sleeping when I first went in to see him. Mildly groggy, but appropriate. Sometimes tearful when discussing his current situation. HEENT: Unremarkable. LUNGS: Clear. CARDIAC: Regular. ABDOMEN: Soft. EXTREMITIES: Lower extremities reveal severe edema bilaterally, and his wounds are wrapped. NEUROLOGICAL: Difficult to assess, but no focal. LABORATORY DATA: When he came in, white count was 20,000, hemoglobin 11.9, platelet count 350,000. Chemistries: Creatinine 0.7, potassium 5.3. LFTs were not done. Ultrasound showed acute DVT in the left groin. CT of the abdomen and pelvis in May showed minimal increased volume, left retroperitoneal mass involving the left iliopsoas and increase in size of left anterior abdominal wall implant. There was also new right inguinal hematoma versus metastasis. Minimal worse disease in his vertebral bodies. IMPRESSION: 1. Metastatic renal cell carcinoma. 2. Chronic pain control. 3. Acute deep vein thrombosis. 4. Lower extremity swelling, with possibly infected wounds. Definitely his renal cell carcinoma is reaching towards end stage as he has been on most active agents, and anything left has a very low chance of working. Dr. Oakley has broached the subject of palliative care with him, but the patient has been somewhat reluctant to go very deep into that discussion. I broached it with him tonight, and he is not sure what he wants to do. I discussed with him whether a repeat CT of his abdomen to see what the cancer is doing might help him with his decision, and he was not sure this evening. I explained to him he was found to have a blood clot, which is contributing to the swelling, and since it is on the left side, might be related to the malignancy. We can see if starting the Lovenox has helped with some of his pain and swelling and discussed whether further scans in the morning would be beneficial. Personally, I think he might benefit from moving toward a more comfort care situation, focusing on his pain control and symptom control. We will continue to follow along while he is in the hospital. /[id number]/MODL MTDD
[2018-08-04] MEDS ORDERED: INSULIN LISPRO 100 UNIT/ML SC ONE (21:15)
[2018-08-05] MEDS: DIAZEPAM 5 MG TAB PO PRN (01:47)
[2018-08-05] MEDS: VANCOMYCIN 1.5 GM in NS 250 ML IV SCH (04:09)
[2018-08-05] MEDS: oxyCODONE IR 15 MG TAB PO PRN (04:28)
[2018-08-05 05:23] LABS: PLATELET COUNT 343 10^3/uL (150-400)
[2018-08-05] MEDS: OPANA 10 MG PO SCH ×2 (06:08→13:24)
[2018-08-05] MEDS: GABAPENTIN 300 MG CAP PO SCH ×2 (06:08→13:24)
[2018-08-05] MEDS: METHADONE HCL 5 MG TAB PO SCH ×2 (06:08→13:24)
[2018-08-05] MEDS: LEVOTHYROXINE 25 MCG TAB PO SCH (06:08)
--- NOTE | 2018-08-05 06:22 | GCON ---
INPATIENT INFECTIOUS DISEASE CONSULTATION REFERRING PHYSICIAN: Collins Cr MD REASON FOR REFERRAL: Possible purulent cellulitis, bilateral lower extremities. HISTORY OF PRESENT ILLNESS: The patient is a 53-year-old male who has been diagnosed with renal cell carcinoma since 2011. The patient initially developed this disease on his left side. He had metast atic disease 2 years later and since then, has gone through 5 regimens of chemotherapy with varying s igns of success. The patient has had gradual progression and at his last evaluation in May, sh owed multiple abdominal and pelvic lesions including a large retroperitoneal lesion. The patient sta judith for the last month or so, he has had difficulties with bilateral lower extremity leg swelling. H e states that over the last week, the swelling has gotten worse and that he has developed some breakd own in the skin at the distal aspect of his left lower extremity. He states that he cannot walk anyw here without leaking fluid out of the sores on his left leg. He denies any significant fevers or chi lls. The patient did have a Doppler ultrasound upon presentation, which showed a deep venous thrombo sis in the left groin and upper thigh. PAST MEDICAL HISTORY: 1. Renal cell cancer. 2. Hypothyroidism. 3. Obstructive sleep apnea. PAST SURGICAL HISTORY: Status post left-sided nephrectomy. ANTIBIOTICS: Vancomycin. ALLERGIES: Patient is allergic to lisinopril. SOCIAL HISTORY: The patient is . He has 2 children. Remote tobacco user. No alcohol or danny g use. FAMILY HISTORY: Reviewed, but noncontributory. REVIEW OF SYSTEMS: Other than that detailed above stressed in the history of present illness, a comp rehensive 10-system review is negative. PHYSICAL EXAMINATION: VITAL SIGNS: Temperature maximum is 37.1, temperature current 36.3, heart rat e is 81, respiratory rate is 13, blood pressure is 138/58. GENERAL: The patient is a well-formed, w ell-nourished, chronically ill-appearing, middle-aged male in no acute distress. He is not toxic in appearance. He is alert and oriented x3. He has a pleasant demeanor. HEENT: Normocephalic for age . Atraumatic. No scleral icterus. No oral lesion or drainage from the nares. Eyes lids and conjunc tivae are within normal limits. Pupils are equal and round bilaterally. NECK: Supple. No meningis mus. LUNGS: Clear to auscultation bilaterally with good effort. HEART: Regular rate and rhythm. The patient does have 4+ peripheral edema that is pitting in bilateral lower extremities and knee dis rody. SKIN: Warm and dry to the touch. No rash noted. Patient does have with the significant lymph edema in the bilateral lower extremities, breakdown on the anterior medial aspect of the distal left lower extremity. He has significant serous drainage from this defect. MUSCULOSKELETAL: No other muscular tenderness is noted. No joint line effusion or arthritis seen. NEURO: Cranial nerves 2 through 12 seem to be intact. Peripheral sensation seems intact in extremit ies. LABORATORY DATA: The patient has a CBC dated 08/04/2018, that shows a white blood cell count of 19.9 , hemoglobin of 11.6, hematocrit of 37.7, and a platelet count of 352. Differential is within normal limits. Serum chemistries on 08/04/2018, show sodium 137, potassium 5.5, chloride 105, bicarb 20, B UN of 27, and creatinine of 0.7. MICROBIOLOGIC DATA: Patient has blood cultures dated 08/03/2018. ASSESSMENT: Severe bilateral lower extremity lymphedema, left greater than right. Patient's present ation is secondary to copious serous drainage and discharge from the open wounds on his left lower ex tremity. Although his left lower extremity is mildly hyperemic and erythematous, I am suspicious paula t this finding is more consistent with the gross edema of the left lower extremity as opposed to supe rimposed infection. Although an infection in the wound infection specifically cannot be ruled out, t he underlying cause for this issue is almost certainly obstructive issues secondary to the large retr operitoneal mass due to the metastatic renal cancer. At this point, I agree with empiric intravenous vancomycin coverage. I did discuss with Dr. Oakley in oncology about the overall situation with re evelia to this patient's metastatic malignancy. PLAN: 1. Continue IV vancomycin for now. 2. Check vancomycin trough prior to 4th dose. 3. Follow up on Oncology consultation. /[id number]/MODL
[2018-08-05] MEDS: DEXAMETHASONE 4 MG TAB PO SCH (08:45)
[2018-08-05] MEDS: INSULIN LISPRO 100 UNIT/ML SC SCH ×2 (08:45→12:17)
[2018-08-05] MEDS: ENOXAPARIN 150 MG/ML SYR SC SCH (08:45)
[2018-08-05] MEDS: FLUoxetine 20 MG CAP PO SCH (08:45)
[2018-08-05] MEDS ORDERED: FUROSEMIDE 40 MG/4 ML VIAL IVP SCH (09:00)
--- NOTE | 2018-08-05 09:34 | ECHO ---
[email or web address] [address] [address] Main: [phone] Fax: [email or web address] Echocardiogram Name: GERMAIN TREJO MR#: [id number] Study Date: 08/05/2018 Study Time: 08:57 AM Date of : 1965 Age: 53 year(s) Height: 185.4 cm (73 in.) Weight: 136.08 kg (300 lb.) BSA: 2.56 m2 Gender: Male Examination: Echo Indication: bilateral LE edema Image Quality: Technically Difficult Contrast: No echo contrast agent administered Requested by: Brian Castaneda BP: 121 mmHg/57 mmHg Heart Rate: Rhythm: Indication: bilateral LE edema Procedure Staff Oracle Database Consultant: Aparna Melo RDCS Reading Physician: Bishop Ferrer MD Requesting Provider: Conclusions: Normal study Measurements: Chambers Valvular Assessment AV/MV Valvular Assessment TV/PV Normal Normal Normal Name Value Range Name Value Range Name Value Range Ao Kady (2D): 3.4 cm (1.4 cm-2.6 AV Vmax: 1.51 m/s (1 m/s-1.7 PV Vmax: 1.05 m/s (0.6 m/s-0.9 cm) m/s) m/s) IVSd (2D): 1.1 cm (0.6 cm-1.1 AV maxP mmHg ( - ) PV PGmax: 4 mmHg ( - ) cm) AV meanP mmHg ( - ) LVDd (2D): 5.6 cm (4.2 cm-5.9 DICK (VTI): 3.5 cm ( - ) cm) MV E Vmax: 0.78 m/s ( - ) LVDs (2D): 3.2 cm (2.1 cm-4 MV A Vmax: 0.86 m/s ( - ) cm) MV E/A: 0.91 ( - ) LVPWd (2D): 1.1 cm (0.6 cm-1 cm) MV PHT: 0.068 s ( - ) LVOTd 2.4 cm 2.4 cm mm MVA (PHT): 3.2 s ( - ) LVEF (MOD4): 54 % (>=55 %) RVDd(2D): 3.1 cm (1.9 cm-3.8 cmmm) Continued Measurements: Chambers Valvular Assessment AV/MV Name Value Name Value LADs: 3.2 cm MV DecTime: 215 m/s LADs Lon.1 cm MV E' Septal: 0.09 m/s LA Area: 22.9 cm2 MV E/E' Septal: 8.60 LA Volume: 69 ml MV E/E' Lateral: 5.90 LA Volume Index: 27.0 ml/m2 Patient: GERMAIN TREJO Study Date: 08/05/2018 Page 1 of 2 08:57 AM RA Area: 23.4 cm2 Additional Vessels Name Value Ao Ascendin.7 cm Inferior Vena Cava: 1.9 cm Findings: Left Ventricle: Normal size left ventricle. No LV hypertrophy. Normal global systolic LV function. EF is 54 %. No regional wall motion abnormality. Normal diastolic LV function. Right Ventricle: Normal size right ventricle. Normal RV function. Left Atrium: The left atrium is normal in size. Right Atrium: The right atrium is normal in size. Mitral Valve: The mitral valve is normal in appearance and function. Trivial mitral valve regurgitation. No mitral stenosis is present. Aortic Valve: The aortic valve is tri-leaflet. There is no significant aortic valve regurgitation. No aortic valve stenosis is present. Tricuspid Valve: The tricuspid valve is normal in appearance and function. Trivial tricuspid valve regurgitation. Pulmonic Valve: The pulmonic valve is normal in appearance and function. There is no pulmonic regurgitation seen. Aorta: The aorta is normal. Normal size aortic root measuring 3.4 cm. Normal size ascending aorta measuring 3.7 cm. IVC: The IVC is normal sized. Pericardium: Trivial pericardial effusion. No pleural effusion. Exam Comments: Technically difficult due to body habitus. (No Signature Object) Patient: GERMAIN TREJO Study Date: 08/05/2018 Page 2 of 2 08:57 AM [id number]
--- NOTE | 2018-08-05 10:21 | PCMIDPN ---
Assessment/Plan: #LLE >RLE cellulitis: blood cx negative, patient states improvement in pain. RN reports similar appearance LLE. Cr normal --elevated LLE --reasonable to transition to PO antibiotics Doxycycline to continue MRSA coverage, Augmentin for strep and GNR coverage. Tentatively plan 7 more days --check LFTs #B Venous insufficiency: elevation w compression as tolerated #Leukocytosis: baseline elevation in WBC, AF and VS stable. Blood cx negative Meds Vancomycin IV #2 micro 08/03 blood cx (2) NGTD ECHO reviewed Subjective: patient reports feeling much improved with less pain L leg hoping for discharge soon Objective: Vital Signs Temp Pulse Resp BP Pulse Ox 36.6 C 83 10 L 127/66 H 92 08/05/18 07:41 08/05/18 07:41 08/05/18 07:41 08/05/18 07:41 08/05/18 07:41 Laboratory Results 08/05/18 05:02 08/05/18 05:02 08/04/18 08/05/18 08/06/18 05:59 05:59 05:59 Intake Total 5265 3580 650 Output Total 350 Balance 4915 3580 650 - Physical Exam General Appearance: alert, other (tearful) EENT: pale conjunctiva, dry mucous membranes, other (no oral ulcerations), No scleral icterus Respiratory: lungs clear, No accessory muscle use Neck: supple Cardiac/Chest: regular rate, rhythm Extremities: pedal edema (L>R), other (stocking distrubution erythema LLE with multiple ulcers and vesicles associated with purulent material. Pulses difficult to palpate due to swelling) Abdomen: normal bowel sounds, non-tender, soft Skin: warm/dry Neuro/Psych: alert, oriented x 3, depressed affect - Line/s PIV Lines: other (B hands), No drainage, No erythema - Time Spent With Patient Time Spent with Patient: greater than 25 minutes Time Spent with Patient: Greater than 25 minutes spent on this patients care, greater than 50% of time spent counseling, educating, and coordinating care regarding the above mentioned plan. ICD10 Worksheet Patient Problems: Problems Problem Status Onset Septic shock Acute Fever Acute Pain management Acute Renal cell carcinoma Acute Severe low back pain Acute
[2018-08-05] MEDS ORDERED: AMOXICILLIN/CLAVULANATE POT 875/125 MG TAB PO SCH (10:30)
[2018-08-05] MEDS ORDERED: DOXYCYCLINE HYCLATE 100 MG CAP/TAB PO SCH (10:30)
[2018-08-05 11:54] VITALS: BP 139/63
--- NOTE | 2018-08-05 12:25 | PDIAF ---
- Diagnosis Diagnosis: Metastatic Renal Cell Carcinoma Code Status: Do Not Resuscitate - Medication Management Discharge Medications: electronically signed and located in the Home Medication List. - Orders Services needed: Home Care, Physical Therapy Home Care Face to Face: I certify that this patient was under my care and that I had the required [id number] encounter meeting the encounter requirements on the discharge day. My findings support the fact that the patient is homebound as defined in Home Care Face to Face Continued: CMS Chapter 7 Medicare Benefits Manual 30.1.1 , The condition of the patient is such that there exists a normal inability to leave home and consequently, leaving home would require a considerable and taxing effort. Isolation Type: Chemotherapy Isolation, None Diet Recommendation: ADA 2000 consistent carb Diet Texture: Regular Texture Diet - Follow Up Care Current Providers and Referrals: JOHNNY ZHANG [Primary Care Provider] - [facility] [Clinic] -
--- NOTE | 2018-08-05 12:41 | SOAPPROG ---
SOAP Progress Note Assessment/Plan: E&M renal cell ca * Renal Cell ca: Refractory to Sunitinib, pazopinib, everolimus, nivolumab; now on cabometyx but probably progressing. I recommended CT prior to discharge but he preferred to do it out patient. Has appt. tomorrow with Dr. Oakley. * Acute DVT: agree with continuing LMWH * Leg wounds with infection: on abx * Pain control: difficult problem managed by Dr. Oakley. Subjective: Feeling better and wants to go home Objective: Vital Signs Temp Pulse Resp BP Pulse Ox 36.6 C 88 18 139/63 H 97 08/05/18 07:41 08/05/18 11:54 08/05/18 11:54 08/05/18 11:54 08/05/18 11:54 Laboratory Results 08/05/18 05:02 08/05/18 05:02 08/04/18 08/05/18 08/06/18 05:59 05:59 05:59 Intake Total 5265 3580 900 Output Total 350 Balance 4915 3580 900 Physical Exam - Physical Exam General Appearance: no apparent distress Cardiac/Chest: edema Skin: other (less erythema) ICD10 Worksheet Patient Problems: Problems Problem Status Onset Septic shock Acute Fever Acute Pain management Acute Renal cell carcinoma Acute Severe low back pain Acute
[2018-08-05] MEDS ORDERED: IOPAMIDOL (ISOVUE-300) 100 ML BTL ONE (14:13)
--- NOTE | 2018-08-05 17:25 | PDINTPN ---
Desktop Support Associate Progress Note Assessment/Plan: Assessment: Cellulitis with skin breakdown of the lower extremities bilaterally. Infectious Disease feels that he can go home on doxycycline and Augmentin. Lower extremity edema/anasarca. On Lasix. Metastatic renal cell carcinoma. DVT: On full-dose Lovenox. Insulin-dependent diabetes. Blood sugars elevated at times. Plan: Likely discharge today if okay with Oncology. Id has cleared him for discharge. He will need close follow-up as an outpatient. Support systems at home appear to be adequate. Subjective: Feels better. Asking about discharge. Legs remain swollen but less painful. Objective: Vital Signs Temp Pulse Resp BP Pulse Ox 36.6 C 88 18 139/63 H 97 08/05/18 07:41 08/05/18 11:54 08/05/18 11:54 08/05/18 11:54 08/05/18 11:54 Laboratory Results 08/05/18 05:02 08/05/18 05:02 08/04/18 08/05/18 08/06/18 05:59 05:59 05:59 Intake Total 5265 3580 1260 Output Total 350 Balance 4915 3580 1260 Physical Exam - Physical Exam General Appearance: alert, no apparent distress, obese EENT: PERRL/EOMI, other (On room air, 97%) Neck: normal inspection (Large neck, no obvious JVD) Respiratory: lungs clear, decreased breath sounds (At the bases), No rales, No rhonchi Cardiac/Chest: regular rate, rhythm, No gallop Abdomen: non-tender, soft (Overweight), No normal bowel sounds (Decreased, present) Skin: normal color, warm/dry, other (Skin over lower extremities with areas of breakdown, weeping, etc.) Extremities: swelling (3+ edema/anasarca of the lower extremities bilaterally with weeping open lesions, dressed.) Neuro/Psych: no motor/sensory deficits, No cognition abnormalities ICD10 Worksheet Patient Problems: Problems Problem Status Onset Renal cell carcinoma Acute Pain management Acute Fever Acute Severe low back pain Acute Septic shock Acute
--- NOTE | 2018-08-06 00:38 | GDS ---
ONCOLOGIST: Dr. Ted Oakley. DISCHARGE DIAGNOSES: 1. Lymphedema. 2. Acute left lower extremity deep vein thrombosis. 3. Possible cellulitis. 4. Hyperkalemia. HISTORY OF PRESENT ILLNESS: The patient is a pleasant 53-year-old gentleman with a past medical hist ory of metastatic renal cell carcinoma, who has unfortunately failed multiple chemotherapy agents. Nahomi hong initially had surgery to have his kidney removed in 2011 at the time of initial diagnosis. He was admitted to [facility] on 08/03/2018 with complaints of bilateral leg swelling and we akness. He was subsequently diagnosed with an acute deep vein thrombosis in the left lower extremity with clot into the upper thigh and left groin region. He did not have any symptoms suggestive of a pulmonary embolism. He was started on Lovenox injections at 130 mg twice a day. It was felt though that his edema was also a result of progressive metastases from his renal cell carcinoma. The edema was complicated by skin breakdown particularly in the left lower extremity, and he will be establishi ng with the [facility] for ongoing recommendations. Infectious Disease was consulted during his stay. It was felt that he may have evidence of cellulitis as well although not entirely sure as we had alternative explanations for his erythema of the left lower extremity. Nahomi hong was, however, discharged with 1 week of antibiotics to include Augmentin and doxycycline. I did ta lk with him about obtaining a CT scan of his abdomen and pelvis to reassess his tumor burden as he do es have a followup tomorrow with Dr. Oakley. He was agreeable to have this done while he was in the hospital before discharge. HOSPITAL COURSE BY PROBLEM: Deep vein thrombosis, acute. Left lower extremity up to the upper thigh and groin. Underlying malignancy a likely risk factor. We discussed continuing with Lovenox and rell potts agreeable. He states he does insulin injections at home, so he is comfortable giving him Loven ox injections. Cellulitis possible of the left lower extremity. I appreciate Infectious Disease's input. Continue with 1 week of doxycycline and Augmentin. Edema of the bilateral lower extremities. Suspect this is secondary to progression of his renal cell carcinoma and compression of lymphatic drainage. Elevation as able. I do recommend continuing with Lasix at 40 mg daily. I have recommended a reassessment with his primary provider in 1-2 weeks' rich hong to determine if we should continue with additional Lasix and also consider checking electrolytes at that time. He did have an echocardiogram performed during this hospitalization. His estimated ejec tion fraction was measured at 54% with normal global systolic left ventricular function and size. Hyperkalemia. He was mildly hyperkalemic during this hospitalization with a potassium level at 5.5. I think this will come down with ongoing use of Lasix and do not recommend any supplementation at th is time. Diabetes mellitus type 2, insulin dependent. No changes made during this hospitalization. I recomme nded to him to continue his normal home insulin regimen. Hypothyroidism. Levothyroxine was continued at 25 mcg daily. Renal cell carcinoma. Patient has followup tomorrow with Dr. Oakley to review CT of the abdomen and pelvis performed today. Chronic pain. No changes were made to his chronic pain regimen including methadone and oxycodone. DISPOSITION: Patient appears stable for discharge home today. NOTABLE STUDIES: Lower extremity ultrasound showed acute DVT in left groin and upper thigh, no clot visualized in the right leg, inability to exclude clot in either calf related to pitting edema. Chest x-ray performed 08/05/2018 showed mild cardiac silhouette enlargement and mild pulmonary venous hypertension with no evidence of interstitial edema or focal infiltrate. Echocardiogram performed 08/05/2018 showed normal size left ventricle without left ventricular hypert rophy. Normal global systolic function of the left ventricle with an estimated ejection fraction of 54%. Normal size right ventricle and right ventricular function. White blood cell count 19, hemoglo bin 11, platelets 343. Sodium level 137, potassium 5.6, chloride 103, bicarb 23, BUN 24, creatinine 0.7, glucose 252. Hemoglobin A1c pending. DISCHARGE MEDICATIONS: 1. Augmentin 875/125 twice a day for 7 additional days. 2. Doxycycline 100 mg twice a day for 7 additional days. 3. Lovenox 130 mg subcu twice a day. 4. Lasix 40 mg daily, 7 tablets prescribed. 5. Levothyroxine 25 mcg daily. 6. Methadone 20 mg 3 times a day. 7. Prozac 20 mg daily. 8. Cabometyx 20 mg daily. 9. Oxycodone IR 30 mg every 4 hours as needed for breakthrough pain. 10. Oxymorphone 80 mg 3 times a day. 11. Celecoxib 200 mg twice a day. 12. Dexamethasone 8 mg twice a day. 13. Diazepam 5-10 mg every 6 hours as needed. 14. Neurontin 900 mg 3 times a day. 15. Insulin glargine 50 units daily. DISCHARGE INSTRUCTIONS: I recommended a followup visit with his primary provider, Inessa Dang, in 1- 2 weeks' time to reassess his lower extremity edema and consider checking electrolytes with concurren t Lasix use. Patient has a followup visit with Dr. Ted Oakley tomorrow morning. I also have recom mended establishing with the [facility] for ongoing topical philip gement of lower extremity wounds. 40 minutes of time dedicated to discharge efforts today. His case was reviewed with intensive care a s well as patient's oncologist today. /[id number]/MODL
[2018-08-06] MEDS ORDERED: FUROSEMIDE 40 MG TAB PO SCH (09:00)
== END 2018-08-05 15:05 | disposition home health service (06) | DRG 300 ==
LOC: F2N 19:00
PROVIDERS: ADMIT Internal Medicine; ATTEND Internal Medicine
DX: I82.412 Acute embolism and thrombosis of left femoral vein (principal); L03.116 Cellulitis of left lower limb; C78.6 Secondary malignant neoplasm of retroperitoneum and peritoneum; C79.51 Secondary malignant neoplasm of bone; F11.20 Opioid dependence, uncomplicated; I89.0 Lymphedema, not elsewhere classified; T45.1X5A Adverse effect of antineoplastic and immunosuppressive drugs, initial encounter; S80.822A Blister (nonthermal), left lower leg, initial encounter; E87.5 Hyperkalemia; E86.9 Volume depletion, unspecified; G89.29 Other chronic pain; E11.9 Type 2 diabetes mellitus without complications; G47.33 Obstructive sleep apnea (adult) (pediatric); E03.9 Hypothyroidism, unspecified; E66.9 Obesity, unspecified; Z68.39 Body mass index [BMI] 39.0-39.9, adult; M51.36 Other intervertebral disc degeneration, lumbar region; I10 Essential (primary) hypertension; Z79.4 Long term (current) use of insulin; Z85.528 Personal history of other malignant neoplasm of kidney; Z87.891 Personal history of nicotine dependence; Z80.42 Family history of malignant neoplasm of prostate; Z90.5 Acquired absence of kidney; Z66 Do not resuscitate
CPT/HCPCS: 96365; 97116-GP; 97162-GP; 97530-GP; G8978-GP-CJ; G8979-GP-CI; G8980-GP-CI; J1170; J1650; J1815; J1940; J3370; Q9967

== ENCOUNTER 2018-08-08 19:28 | Inpatient (IN) | payer BC, OTHER ==
[2018-08-08] MEDS ORDERED: NS 1,000 ML IV ONE (19:39)
[2018-08-08 19:47] LABS: PLATELET COUNT 378 10^3/uL (150-400)
[2018-08-08] MEDS ORDERED: VANCOMYCIN HCL/NORMAL SALINE 250 ML IV ONE (20:21)
[2018-08-08] MEDS ORDERED: NS IV ONE (20:23)
--- NOTE | 2018-08-08 21:27 | EDPHY ---
H & P Time Seen by Provider: 08/08/18 19:32 HPI/ROS: Chief complaint. Weakness, confusion HPI. Patient is a 53-year-old male with metastatic renal cell cancer and diabetes was discharged from the hospital 3 days ago for sepsis and leg infection. He was discharged on Augmentin and doxycycline. While he was in the hospital on that admission he was diagnosed with an acute DVT of the lower extremity. He is using Lovenox for blood thinners. Since discharged he has become weaker and now cannot stand up. He is lethargic and somewhat confused. He does have chronic pain and chronic opiate usage. Recently his pain medication was changed from Opana 40 mg 2 pills 3 times daily to 10 mg tabs knees taking 810 mg tabs 3 times daily. His administers the medication. He developed some left epistaxis yesterday. No cough. His does not think he has had a fever. She feels that his legs are looking worse ROS 10 systems were reviewed and negative with the exception of the elements mentioned in the history of present illness Past Medical/Surgical History: Metastatic renal cell cancer. Diabetes, recent sepsis, chronic pain and opiate dependent, hypothyroid, recent diagnosis of DVT Social History: , nonsmoker, no alcohol Smoking Status: Former smoker Physical Exam: General Appearance: Alert though lethargic well-developed male. Vital signs show heart rate 112. Blood pressure 134/89 Eyes: Pupils equal and round no pallor or injection. ENT, Mouth: Mucous membranes are moist. Respiratory: There are no retractions, lungs are clear to auscultation. Cardiovascular: Regular rate and rhythm. Gastrointestinal: Abdomen is soft and nontender, no masses, bowel sounds normal. Neurological: Awake and alert, sensory and motor exams grossly normal. Skin: Warm and dry, no rashes. Musculoskeletal: Neck is supple nontender. Extremities both extremities are swollen erythematous. There is multiple pustules and purulent drainage. Psychiatric: Patient is oriented X 3, there is no agitation. Patient is somewhat lethargic Constitutional: Initial Vital Signs Temperature (C) 36.5 C 08/08/18 19:36 Heart Rate 112 H 08/08/18 19:36 Respiratory Rate 20 08/08/18 19:36 Blood Pressure 134/89 H 08/08/18 19:36 O2 Sat (%) 95 08/08/18 19:36 O2 Delivery Mode Room Air Allergies/Adverse Reactions: lisinopril Allergy (Verified 08/03/18 17:32) Home Medications: Medication Instructions Recorded Levothyroxine [Synthroid 25 mcg 25 mcg PO DAILY06 01/17/18 (*)] Methadone HCl [Methadone 5 mg (*)] 20 mg PO 06,14,22 01/17/18 Cabozantinib S-Malate [Cabometyx] 20 mg PO DAILY@04 04/22/18 FLUoxetine [Prozac 20 MG (*)] 20 mg PO DAILY 04/22/18 oxyCODONE IR [Oxycodone Ir (*)] 30 mg PO Q4 PRN #120 tab 04/24/18 celeCOXIB [Celebrex (*)] 200 mg PO BID 05/06/18 Diazepam [Valium 5 MG (*)] 5 - 10 mg PO Q6HRS PRN #30 tab 06/09/18 Acetaminophen [Tylenol ES 500 mg 1,000 mg PO BID 08/03/18 (*)] Gabapentin [Neurontin 300 MG (*)] 300 mg PO TID@,,08/03/18 Amoxicillin/Clavulanate Pot 875 mg PO BID #14 tab 08/05/18 [Augmentin 875 MG TAB (*)] Doxycycline Hyclate [Vibramycin 100 mg PO BID #14 capsule 08/05/18 100 MG (*)] Enoxaparin [Lovenox 150 MG (*)] 130 mg SC BID #28 syr 08/05/18 Furosemide [Lasix 40 MG (*)] 40 mg PO DAILY #7 tab 08/05/18 Insulin Glargine [Lantus] 50 unit SC DAILY 08/05/18 Oxymorphone HCl [Opana] 80 mg PO TID@06,,08/08/18 metFORMIN HCL [Glucophage 500 mg 500 mg PO BIDMEAL 08/08/18 (*)] Medical Decision Making - Diagnostics EKG Interpretation: EKG interpreted by me shows sinus tachycardia normal interval and axis. QRS is normal there is no significant ST elevation or depression. There is no arrhythmia. The rate is 105 Imaging Results: Imaging Impressions Chest X-Ray 08/08/18 19:51 Impression: Stable mild cardiomegaly. Probable mild underlying bronchitis. Procedures: IV normal saline. Sepsis workup. Wound cultures of legs. Review of old records. Further history from . IV vancomycin ED Course/Re-evaluation: Patient's lactate is over 5. Severe sepsis is declared. He is given 30 milliliters/kilogram fluid bolus. The patient, his , and I discussed imaging and lab results. We discussed treatment plan including recommendation for admission. They expressed understanding and agreement I consulted and discussed the case with Dr. Smith, hospitalist who sees the patient in the emergency department Differential Diagnosis: Patient has severe sepsis likely from his legs which have purulent drainage. Failed outpatient therapy as he went home on Augmentin and doxycycline which he has been taking. He also has mild hyperkalemia with potassium 6.2 however he has an anion gap and is somewhat acidotic I think from dehydration. We will re- evaluate this after he has had his fluid bolus and then consider treatment. Critical Care Time: Critical care exclusive procedures 40 min - Data Points Laboratory Results: Laboratory Results 08/08/18 19:30 08/08/18 19:30 08/08/18 08/08/18 08/08/18 19:48 19:30 19:30 WBC 25.97 10^3/uL H 10^3/uL (3.80-9.50) RBC 5.41 10^6/uL 10^6/uL (4.40-6.38) Hgb 13.5 g/dL L g/dL (13.7-17.5) Hct 43.6 % % (40.0-51.0) MCV 80.6 fL L fL (81.5-99.8) MCH 25.0 pg L pg (27.9-34.1) MCHC 31.0 g/dL L g/dL (32.4-36.7) RDW 21.1 % H % (11.5-15.2) Plt Count 378 10^3/uL 10^3/uL (150-400) MPV 10.8 fL fL (8.7-11.7) Neut % (Auto) Not Reported Lymph % (Auto) Not Reported [place] % (Auto) Not Reported Eos % (Auto) Not Reported Baso % (Auto) Not Reported Nucleat RBC Rel Count Not Reported Absolute Neuts (auto) Not Reported Absolute Lymphs (auto) Not Reported Absolute Monos (auto) Not Reported Absolute Eos (auto) Not Reported Absolute Basos (auto) Not Reported Absolute Nucleated RBC Not Reported Immature Gran % Not Reported Seg Neutrophils % 77.6 % % Band Neutrophils % 0.0 % % Lymphocytes % 16.3 % % Monocytes % 2.0 % % Eosinophils % 0.0 % % Basophils % 0.0 % % Metamyelocytes % 1.0 % % Myelocytes % 3.1 % % Promyelocytes % 0.0 % % Blast Cells % 0.0 % % Immature Gran # Not Reported Absolute Seg Neuts 20.15 10^3/uL H 10^3/uL (1.70-6.50) Absolute Band Neuts 0.00 10^3/uL 10^3/uL (0.00-0.70) Absolute Lymphocytes 4.23 10^3/uL H 10^3/uL (1.00-3.00) Absolute Monocytes 0.52 10^3/uL 10^3/uL (0.30-0.80) Absolute Eosinophils 0.00 10^3/uL L 10^3/uL (0.03-0.40) Absolute Basophils 0.00 10^3/uL L 10^3/uL (0.02-0.10) Absolute Metamyelocyte 0.26 10^3/mL H 10^3/mL (0.00-0.00) Absolute Myelocytes 0.81 10^3/mL H 10^3/mL (0.00-0.00) Absolute Promyelocytes 0.00 10^3/uL 10^3/uL (0.00-0.00) Absolute Plasma Cells 0.00 10^3/uL 10^3/uL (0.00-0.00) Nucleated RBCs 4.1 /100 WBC H /100 WBC (0-0) Absolute Blast Cells 0.00 10^3/uL 10^3/uL (0.00-0.00) Plasma Cells % 0.0 % % Platelet Estimate ADEQUATE (ADEQ) Large Platelets PRESENT H Giant Platelets PRESENT H Polychromasia 1+ H Target Cells 1+ H Oval Macrocytes 2+ H VBG Lactic Acid 5.1 mmol/L H mmol/L (0.7-2.1) Sodium 134 mEq/L L mEq/L (135-145) Potassium 6.2 mEq/L H mEq/L (3.3-5.0) Chloride 96 mEq/L L mEq/L (97-110) Carbon Dioxide 19 mEq/l L mEq/l (22-31) Anion Gap 19 mEq/L H mEq/L (6-14) BUN 43 mg/dL H mg/dL (7-23) Creatinine 1.2 mg/dL mg/dL (0.7-1.3) Estimated GFR > 60 Glucose 273 mg/dL H mg/dL (70-100) Calcium 10.6 mg/dL H mg/dL (8.5-10.4) Total Bilirubin 0.9 mg/dL mg/dL (0.1-1.4) Medications Given: Discontinued Medications Sodium Chloride (Ns) 1,000 mls @ 0 mls/hr IV EDNOW ONE; Wide Open PRN Reason: Protocol Stop: 08/08/18 19:40 Last Admin: 08/08/18 19:41 Dose: 1,000 mls Vancomycin/Sodium Chloride (Vancomycin 1 Gm (Premix)) 250 mls @ 250 mls/hr IV EDNOW ONE PRN Reason: Protocol Stop: 08/08/18 21:20 Last Admin: 08/08/18 20:31 Dose: 250 mls Sodium Chloride (Ns) 4,100 mls @ 8,200 mls/hr 30 ml/kg infuse over 30 min ( 4100 ml) IV EDNOW ONE PRN Reason: Protocol Stop: 08/08/18 20:52 Last Admin: 08/08/18 20:35 Dose: 4,100 mls Departure - Departure Disposition: [facility] Inpatient Acute Clinical Impression: Septic shock Condition: Fair
--- NOTE | 2018-08-08 21:54 | CPEKG ---
Test Reason : OPEN Blood Pressure : / mmHG Vent. Rate : 105 BPM Atrial Rate : 105 BPM P-R Int : 142 ms QRS Dur : 085 ms QT Int : 308 ms P-R-T Axes : 048 065 029 degrees QTc Int : 408 ms Sinus tachycardia Confirmed by Ted Reynolds [id number]) on 08/08/2018 9:53:22 PM Referred By: Confirmed By:Ted Reynolds
[2018-08-08] MEDS ORDERED: ZOLPIDEM TARTRATE 5 MG TAB PO PRN (22:17)
[2018-08-08] MEDS ORDERED: ONDANSETRON 4 MG/2 ML VIAL IVP PRN (22:17)
[2018-08-08] MEDS ORDERED: DIAZEPAM 5 MG TAB PO PRN (22:19)
--- NOTE | 2018-08-08 22:42 | PDGENHP ---
History and Physical History and Physical: CC: Worsening leg pain and ulceration HISTORY: This patient who has known end-stage renal cell carcinoma, was admitted here just recently with bilateral leg swelling and with significant erythema and blistering on the left leg. This was felt to possibly be infectious but was not confirmed, though there was no fever and blood cultures were negative. He was treated with IV antibiotics and discharged on Augmentin and doxycycline orally. He left here on August 05. Now 3 days later he comes back with worsening pain in both legs particularly the left leg and with significant worsening of the blistering of his skin on the left leg and now starting to get blisters on the right leg as well. Again there is no fever symptoms at home and they have checked his temperature which did not demonstrate any fever. He feels weak and tired but no other specific localizing symptoms, no dyspnea or nausea. Reviewing the time course of this illness, the tells me that this change in the skin with redness and blistering on the left leg started about 5 weeks ago. It gradually progressed although seems to be gaining momentum a progressing faster over the last few days. While here the patient was identified as having severe DVT and was started on Lovenox shots which he has continued at home. Notably his says that with Lasix and the Lovenox the swelling in both legs has diminished somewhat even though he is feeling worse overall and has worsening skin changes. The shows me a photograph she took of his left leg before his previous admission, and notably he did have some significant ulcerations of the skin in the left leg before this past admission those are clear change now. ROS: A comprehensive 10 system review revealed no other significant findings PAST MEDICAL HISTORY: End-stage renal cell carcinoma, status post nephrectomy but with ongoing metastatic disease enlarged ileus OS mass DVT of both legs Chronic pain related to his malignancy, on chronic narcotics Hypothyroidism Chronic degenerative disease of spine Type 2 diabetes FAMILY MEDICAL HISTORY: A father and brother have prostate cancer SOCIAL HISTORY: lives with his is here at the bedside No significant alcohol or tobacco MEDICATIONS: The patients list has been reconciled by our clinical pharmacist in the EMR. I have reviewed the list and ordered appropriate medicines. PHYSICAL EXAMINATION: Vital Signs: Moderately tachycardic tonight in the ER with pulses between 101 115 otherwise stable vitals without fever Blender Snuff: Sinus tachycardia Examination: General: alert, oriented, looks quite uncomfortable Skin: warm, dry, good color, no rash HEENT: normal Neck: no mass or jvd Resps: relaxed Lungs: clear breath sounds Heart: regular, no murmur Abdomen: soft, nondistended, nontender, +BS, no mass Upper Extremities: normal Lower Extremities: There is remarkable edema from the knees down to the toes in both feet. On the left leg there is significant intense dark redness from below the knee to the ankle, which is confluent; there is also a very large number of large blisters scattered about the lower leg in this same area and these are fluid filled and the fluid has a precipitating yellowish thick material in all of the blisters. There is also 1 very large open ulcer on the pretibial skin in the lower portion of the leg just above the ankle and this is weeping a thick fluid in his very small volume. There is nothing that looks overtly necrotic and nothing that is malodorous or with undermining edges around the various skin lesions. The right leg is now starting to develop a cluster of ulcers in the pretibial area as well and there is mild erythema of this area. No Bleeding or bruising Neurologic: normal speech/language, normal plaster mechanic, no focal weakness IV site: looks normal LABORATORY DATA: Blood cell count 25,000 hemoglobin 13 with microcytosis which has been present Sodium is 134, initial potassium 6.2 CO2 at 19 BUN 43 creatinine 1.2 and glucose is elevated 273 Initial lactate is at 5 although notably he had lactate checked 4 times during his previous hospital stay few days ago and it was 5 on all of those measures. The chemistries repeated after some IV fluids in the ER and there is an improvement in the potassium down 5.2, improvement in the lactate down of 4.3, and improvement in BUN and creatinine as well Urinalysis is done in the ER is unremarkable RADIOLOGY STUDIES: A chest x-ray was done in the ER tonight I reviewed the image which does not show any acute abnormalities 12 LEAD EK lead EKG done in the ER tonight I reviewed the tracing this which shows a sinus tachycardia but no other acute abnormalities ASSESSMENT: * progressive disease of severe ulceration and blistering of the skin of the left lower leg now also starting show up on the right leg, associated with intense erythema of the right lower leg and market edema of both legs * bilateral subacute DVTs on anticoagulation with Lovenox * significant bilateral leg edema is probably due to combination of DVT as well as his renal cell carcinoma * possible acute sepsis though question of whether there is actually infection at this time * acute kidney injury complicated by acute hyperkalemia * acute on chronic poorly controlled pain of cancer as well as pain of his acute skin illness of the legs * acute metabolic acidosis * diabetes mellitus poorly controlled, though control has improved significantly since he stop taking high-dose steroids lately * end-stage metastatic renal cell carcinoma Because of the illness a skin in his legs is not entirely certain to me. When he was here last week he was treated with antibiotics for suspected infection although there was not certainty that there was actually infection he was seen by the Infectious Disease team. There were ulcers but these were not opened apparently for culture. Blood cultures were obtained at that time but did not grow any organism. Again at that time there was no fever. He had been treated with IV antibiotics and sent home with oral antibiotics. At this time he is progressing significantly. The clinical appearance of this syndrome is not consistent with what I believe we would see with the stasis dermatitis as the sole cause. I wonder if there is some other inflammatory process going on causing this. Certainly for now I could not rule out infection and will reassess that at this point PLANS: * Patient has been it admitted to the ICU will need inpatient status * IV resuscitation was started due to his tachycardia metabolic acidosis; will need to temper this with the knowledge that his acidosis has been ongoing for greater than a week and may be multifactorial in origin. IV fluids will increase the edema which may aggravate issues with his legs * I have obtained a culture from the large ulcer on his left leg, and I have ordered vancomycin for the time being as empiric therapy * Will ask for a surgery consult to further assessed his skin disease in the legs, consider whether biopsy may be of any benefit * Read consult Infectious Disease as well * Continue anticoagulation from Lovenox * Follow his renal function electrolytes and acid-base status closely * Follows blood sugars closely and treat as indicated * Cancer pain management * Wound care consult I have reviewed the patient's case in detail with Dr. Geronimo Gomez I have reviewed the patient's past medical records as part of this assessment, including previous hospital admission records
[2018-08-09] MEDS ORDERED: CABOZANTINIB S MALATE 20 MG PO SCH (04:00)
[2018-08-09] MEDS: LEVOTHYROXINE 25 MCG TAB PO SCH (05:31)
[2018-08-09] MEDS: GABAPENTIN 300 MG CAP PO SCH ×3 (05:31→21:25)
[2018-08-09] MEDS: METHADONE HCL 10 MG TAB PO SCH ×3 (05:32→21:25)
[2018-08-09] MEDS: VANCOMYCIN 1.5 GM in NS 250 ML IV SCH ×2 (05:39→16:58)
[2018-08-09 06:30] LABS: PLATELET COUNT 329 10^3/uL (150-400)
--- NOTE | 2018-08-09 07:25 | PDMN ---
Medical Necessity Medical necessity: Pt meets inpt criteria per MD order and MCG M-70, Cellulitis. 53 y/o pt w/end-stage renal cell carcinoma, poorly controlled DM, recent hospital admission for LLE cellulitis and DVT now presents w/worsening pain/swelling/erythema/blisters to bilateral lower extremities, weakness, and fatigue. Possible sepsis and metabolic acidosis w/ABG lactic acid 5.7 on admission, tachycardic, hyperkalemic w/K 6.2. ICU monitoring, IV ABX's, IVF, surgical and wound care consults pending, anticipate>2MN for ongoing eval/ management of above.
[2018-08-09] MEDS ORDERED: FUROSEMIDE 40 MG TAB PO SCH ×2 (09:00→15:00)
[2018-08-09] MEDS: FLUoxetine 20 MG CAP PO SCH (09:09)
[2018-08-09] MEDS: INSULIN GLARGINE 100 UNITS/ML UNIT SC SCH (09:09)
[2018-08-09] MEDS: ENOXAPARIN 150 MG/ML SYR SC SCH ×2 (09:09→22:01)
[2018-08-09] MEDS: metFORMIN HCL 500 MG TAB PO SCH ×2 (09:11→18:13)
--- NOTE | 2018-08-09 09:36 | HOSPPROG ---
Hospitalist Progress Note Assessment/Plan: #Severe sepsis: due to BL leg cellulitis, ulcerations. Appreciate Dr. Escobar's consult. Cont Vanc, add Zosyn. Wound care, blood cultures pending #Lymphedema: from cancer. Contributing to ulcerations. Aggressive IV diuresis #Metastatic RCC: followed by Dr. Oakley #Chronic pain on chronic opioids: hold Opana with AMS. Cont methadone, oxycodone. Goal is to transition to only Methadone in future. #Acute metabolic encephalopathy: infection +/- opioids. Avoid centrally-acting medications #Obesity #Leukocytosis: been elevated for past month. Abx as above #Lactic acidosis: elevated for past month. Improved some with IVFs #BL LE DVT: Lovenox #DM 2: Glargine, SSI #Diet: ADAt #DVT ppx: Lovenox Critical care time spent: 35min bedside evaluating pt, reviewing data. D/w Dr. Dang Subjective: "pain in legs" Objective: Vital Signs Temp Pulse Resp BP Pulse Ox 36.8 C 104 H 20 142/65 H 95 08/09/18 07:00 08/09/18 09:00 08/09/18 09:00 08/09/18 09:00 08/09/18 09:00 Microbiology 08/08/18 21:25 Gram Stain - Final Leg - Swab Laboratory Results 08/09/18 06:20 08/09/18 06:20 08/08/18 08/09/18 08/10/18 05:59 05:59 05:59 Intake Total 5800 Output Total 2050 Balance 3750 - Time Spent With Patient Time Spent with Patient: greater than 35 minutes Time Spent with Patient: Greater than 35 minutes spent on this patients care, greater than 50% of time spent counseling, educating, and coordinating care regarding the above mentioned plan. - Physical Exam Constitutional: obese, uncomfortable Eyes: PERRL Ears, Nose, Mouth, Throat: moist mucous membranes Cardiovascular: regular rate and rhythym Respiratory: no respiratory distress Gastrointestinal: normoactive bowel sounds Genitourinary: No cortez in urethra Musculoskeletal: other (BL legs with significant erythema and pustules. Large ulceration with escar left marquis. Ulceration left calf) Neurologic: CN II-XII Intact, No AAOx3 Psychiatric: encephalopathic ICD10 Worksheet Patient Problems: Problems Problem Status Onset Septic shock Acute Fever Acute Pain management Acute Renal cell carcinoma Acute Severe low back pain Acute
[2018-08-09] MEDS ORDERED: FUROSEMIDE 40 MG/4 ML VIAL IVP ONE (10:27)
--- NOTE | 2018-08-09 11:03 | ASMTCMCOM ---
CM Note CM Note Notes: 08/09/2018 Case Management Note Pt admitted for bilateral lower extremity cellulitis, sepsis and confusion. Pt has history of renal cell cancer, Type 2 diabetes and hypothyroidism. Discussed pt during rounds this morning. is present at bedside. Pt has had 7 admissions since December 2017; generally discharges home without services. ID and wound care to consult. PT OT evals pending. Pt is followed by [facility]. Faxed updates. Case Management d/c poc: to be determined. Case Management to follow. Date Signed: 08/09/2018 11:03 AM Electronically Signed By:Denia Burrell RN
--- NOTE | 2018-08-09 11:42 | PCMIDPN ---
Assessment/Plan: Assessment/Plan: * Sepsis with bilateral lower extremity cellulitis: Significant worsening of lower extremity erythema, ulceration, and pustulosis (previous photos reviewed with patient's today). Gram stain from purulent material shows gram- negative rods. Patient at risk for both MRSA and gram-negative rods based on clinical findings and recent hospitalization. Will continue empiric vancomycin. Will add Zosyn pending additional culture data. Will need to monitor creatinine carefully as these 2 in combination have increased risk of nephrotoxicity. Overall findings complicated by presence of left lower extremity DVT and retroperitoneal mass both of which are likely impairing venous return. * Leukocytosis: This is chronic in nature and may be multifactorial including component related to infection as well as underlying metastatic renal cell cancer. * Lactic acidosis: Patient has had lactate levels in the 5 range since last hospital admission. Unclear if these are directly related to sepsis versus component related to metabolic acidosis in association with metastatic renal cell cancer. Time spent, greater than 35 min, which greater than half was spent in education/ counseling/coordination of care related to sepsis in bilateral lower extremity cellulitis in the setting of metastatic renal cell cancer. 08/09/18 11:39 Subjective: Asked to see patient in consultation by Dr. Pulido for sepsis and bilateral lower extremity cellulitis. Patient was seen last week by our service with initial consultation and follow-up notes being reviewed. Patient developed confusion yesterday and inability to stand. This was not associated with fever or chills. Patient's notes significant worsening of lower extremity erythema and ulceration, most notably on the left. She has pictures on her phone from time of prior hospitalization and currently which outline significant worsening of clinical findings. Patient had been discharged on Augmentin and doxycycline which he was taking. Patient remains confused but complains of significant pain in left lower extremity when this leg is manipulated. Objective: Vital Signs Temp Pulse Resp BP Pulse Ox 36.8 C 102 H 14 132/103 H 99 08/09/18 07:00 08/09/18 11:00 08/09/18 11:00 08/09/18 11:00 08/09/18 11:00 Microbiology 08/08/18 21:25 Gram Stain - Final Leg - Swab Laboratory Results 08/09/18 06:20 08/09/18 06:20 08/08/18 08/09/18 08/10/18 05:59 05:59 05:59 Intake Total 5800 Output Total 2049 Balance 3750 Vancomycin # 1 Blood cultures 08/08/2018 x2 pending Wound culture Gram stain no white blood cells, 3+ Gram-negative rods Blood cultures 08/03/2018 no growth - Physical Exam General Appearance: non-toxic, other (Somnolent but arousable) EENT: dry mucous membranes, No scleral icterus, No conjunctival petechiae Respiratory: lungs clear, No respiratory distress Cardiac/Chest: tachycardia, No systolic murmur Extremities: inflammation (Left lower extremity with 4+ edema with extensive erythema and diffuse pustulosis and ulceration; large ulceration over anterior marquis with inman eschar present; ulceration also present over calf; some clear bulla also present; right lower extremity with similar changes but significantly less prominent) Abdomen: non-tender, No distended Skin: other (See musculoskeletal for full details) Neuro/Psych: confused ICD10 Worksheet Patient Problems: Problems Problem Status Onset Septic shock Acute Fever Acute Pain management Acute Renal cell carcinoma Acute Severe low back pain Acute
[2018-08-09] MEDS: PIPERACILLIN/TAZO 4.5 GM/DEX 100 ML IV SCH ×3 (12:13→23:47)
--- NOTE | 2018-08-09 12:58 | GCON ---
PULMONARY CRITICAL CARE CONSULTATION DATE OF CONSULTATION: 08/09/2018 REASON FOR CONSULTATION: Sepsis, cellulitis. HISTORY: The patient is well known to our service. He was in the intensive care unit within the last week secondary to cellulitis and sepsis. He was discharged 3 days ago to home on oral antibiotics. He returned to the emergency department yesterday with increasing swelling, pain, redness, and blistering of the legs. This was associated with weakness. He was continuing to take Lasix at home and was on full-dose anticoagulation with subcutaneous Lovenox for a right lower extremity DVT documented on the previous hospitalization. PAST MEDICAL HISTORY: Remarkable for metastatic renal cell carcinoma, deep venous thrombosis, chronic pain and narcotics, obesity, type 2 diabetes, and hypothyroidism on replacement. He is do not resuscitate per advance directives and is being followed by hospice. MEDICATIONS ON ADMISSION: Included Opana; oxycodone; methadone; gabapentin; Celebrex; acetaminophen; Augmentin; doxycycline; p.r.n. Valium; enoxaparin 130 mg b.i.d.; Prozac; Lasix 40 mg per day; Lantus insulin 50 units per day; Synthroid; metformin. SOCIAL HISTORY: The patient is , with a very supportive family. FAMILY HISTORY: Noncontributory. REVIEW OF SYSTEMS: A 10-point review of systems is negative except as noted above. PHYSICAL EXAMINATION: GENERAL: Reveals a very obese gentleman who is slightly lethargic but easily arousable and responsive. VITAL SIGNS: Blood pressure is 145/65, heart rate 110 with sinus rhythm on the monitor. He is on room air with saturations of 95%. Respiratory rate is 16. He is afebrile. HEENT: Remarkable for dry mucous membranes. NECK: There is no lymphadenopathy or thyromegaly. The neck is large. Jugular venous pressure is difficult to assess. CHEST: Reveals decreased breath sounds bilaterally secondary to body habitus. LUNGS: Clear. There are no abnormal sounds. HEART: Tachycardic with distant heart tones. The rhythm is regular. There is no obvious gallop. ABDOMEN: Markedly obese with a pannus. There is no significant erythema over the pannus. There is no tenderness. Bowel sounds are present but diminished. : A Dias catheter is in place. He is making urine. Weight on admission is 137.8 kg. EXTREMITIES: Remarkable for 3 to 4+ peripheral edema/anasarca with erythema to below the knees and open, as well as blistered areas with drainage. NEUROLOGIC: Nonfocal. IMAGING: Chest x-ray on admission is unremarkable. There are no infiltrates. Cardiac silhouette is somewhat enlarged. LABORATORY: White blood cell count is 25,000, hematocrit 35.5. Platelets are 329 ,000. Lactate on admission was 5, with a followup lactate of approximately 4. Basic metabolic panel is within normal limits. The sodium is 135, potassium 4.8 , CO2 mildly low at 19, BUN 32 with a creatinine 0.8. Glucoses are in the 250 range. Calcium and bilirubin are normal. Urinalysis on admission is normal. ASSESSMENT: 1. Sepsis. Secondary to bilateral lower extremity cellulitis. Lactate was elevated on admission. Blood pressure, however, has been preserved. Fluids were given per the sepsis protocol, a total of 5 L. He is not requiring pressor therapy. 2. Bilateral lower extremity cellulitis. Changes are as outlined above. He has been seen by Infectious Disease. Gram stain shows gram-negative rods. Vancomycin and Zosyn are given as initial antibiotic choices. 3. Deep venous thrombosis. The patient recently was diagnosed with a large left -sided deep venous thrombosis. He has been on enoxaparin full-dose anticoagulation for this. 4. Lymphedema. His swelling is significantly contributing to his cellulitis and inability to clear infection. Renal function and blood pressure are normal. More aggressive diuresis will be initiated. However, much of his lymphedema may be related to his metastatic cancer. 5. Obesity. 6. History of obstructive sleep apnea. 7. Type 2 diabetes, with elevated blood sugars on admission. PLAN AND RECOMMENDATIONS: The patient will be treated in the intensive care unit. Intravenous fluids will be continued but decreased. Antibiotics will be continued with vancomycin and Zosyn. Increased Lasix diuresis will be ordered. Appropriate pain control will be maintained. This will include methadone, oxycodone, Celebrex, and gabapentin. Additional pain medications can be ordered if needed. Sliding scale insulin will be given along with Lantus. Usual outpatient medications will be continued. Cabometyx will be continued. Laboratory will be followed. Further plans and recommendations will be made based on his progress over the next 12 to 24 hours. /[id number]/MODL and [id number]/MODL MTDD
--- NOTE | 2018-08-09 13:33 | GCON ---
MEDICAL ONCOLOGY FOLLOWUP CONSULTATION REFERRING PHYSICIAN: Aparna Pulido MD REASON FOR CONSULTATION: Ongoing management of metastatic renal cell carcinoma. RECOMMENDATIONS: 1. I would hold the patient's Cabometyx at this time. 2. Agree with treatment of his lower extremity cellulitis. 3. Agree with trying to optimize the patient's pain medication during this hospitalization with the hope to get him onto methadone as a primary long-term agent. 4. I think there will be a significant issue to deal with as far as placement is concerned if the pa tient is not able to achieve an adequate functional status by the time he is ready for discharge from the acute care situation. 5. We will need to have an ongoing discussion regarding goals of therapy and whether it is appropria te to switch to best supportive care mode as far as his goals are concerned. ASSESSMENT: This 53-year-old white male was admitted last night with worsening cellulitis of the low er extremities. He also had change in mental status. The patient was unable to get up and be mobile , therefore his called the ambulance for transport to [facility]. He was felt t o be clinically septic from his lower extremity cellulitis and is now admitted for further treatment and evaluation. His renal cell carcinoma history goes back to July of 2012. At that time, he was diagnosed with an extremely large 28 cm tumor in his left kidney. He was not metastatic at the time of diagnosis, b ut unfortunately fairly shortly thereafter developed metastatic disease. He has been extensively cary ated for his metastatic renal cell carcinoma with sunitinib, everolimus, nivolumab, pazopanib, and mo st recently cabozantinib. He has had a difficult time tolerating a full dose of Cabometyx because of vesicles on the soles of his feet. He has also recently been diagnosed with a deep venous thrombosi s of his left leg. This is felt to be related to his cancer as well as his metastatic disease, which is causing venous obstruction in his pelvis and retroperitoneum. The patient has had chronic lower extremity edema, left greater than right. This is felt to be at le ast in major part related to his metastatic disease in his retroperitoneum and his left pelvis. The patient is really running out of options as far as his therapy is concerned, and is likely to the poi nt of diminished returns on clinical benefit. The patient's pain has been a significant issue all during the course of his treatment. He has requi red high doses of narcotics to keep his pain under any kind of reasonable control. Unfortunately, he has also had episodes where he has had a difficult time controlling his medication schedule and has had episodes of confusion because of that. If the patient is able to have his infection brought under control, we will need to think about wheth er he is adequately functional to go home or whether he will require placement. We have had ongoing discussion regarding his overall prognosis, and he has been reluctant to except that he is running ou t of options for therapy. We will continue this discussion during this hospitalization. HISTORY OF PRESENT ILLNESS: Please see assessment. PAST MEDICAL HISTORY: Remarkable for the above-mentioned deep venous thrombosis in his left leg, whi ch is recent. His past medical history is also remarkable for chronic low back pain related to spina l stenosis as well as borderline hypertension. SURGERIES: Includes L3 through L5 laminectomy and the above-mentioned left nephrectomy with splenect neeraj approximately 6 years ago. 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 He is sourav ied. He has 2 children. He does not drink alcohol on a regular basis. His does have a smoking hist ory but quit 22 years prior to his diagnosis. REVIEW OF SYSTEMS: Currently difficult to obtain because the patient has some confusion. He, franca pak, specifically denies any nausea or vomiting. His pain is primarily in his lower extremities at thi s time. PHYSICAL EXAMINATION: GENERAL: Reveals a somnolent but arousable white male. He has some temporal wasting. His is at the bedside. LUNGS: No rales or rhonchi. CARDIAC: Regular rhythm. ABDOM EN: Distended, obese abdomen. It is difficult to examine for organomegaly or ascites. EXTREMITIES: His lower extremities show 4+ edema with weeping edema. He has cellulitis of the left leg to a gre ater degree than his right. He also has multiple pustules in both lower extremities, again left grea ter than right with ulceration. The patient's white blood cell count number is 24.94 with a hemoglobin 11.6 and a platelet count of 3 29,000. His white count has gradually been going up over the past couple weeks. Thank you very much for allowing us to participate in this pleasant gentleman's care. We will look f orward to assisting with management both during his hospitalization and beyond. /[id number]/MODL
[2018-08-09] MEDS: FUROSEMIDE 40 MG/4 ML VIAL IVP SCH (14:33)
[2018-08-09] MEDS: MELATONIN 3 MG TAB PO SCH (21:25)
[2018-08-10] MEDS: LEVOTHYROXINE 25 MCG TAB PO SCH (05:23)
[2018-08-10] MEDS: VANCOMYCIN 1.5 GM in NS 250 ML IV SCH (05:23)
[2018-08-10] MEDS: GABAPENTIN 300 MG CAP PO SCH ×3 (05:23→21:50)
[2018-08-10] MEDS: METHADONE HCL 10 MG TAB PO SCH ×3 (05:23→21:50)
[2018-08-10] MEDS: HYDROmorphONE/DILAUDID 1 MG/ML INJ IVP PRN (05:24)
[2018-08-10] MEDS: PIPERACILLIN/TAZO 4.5 GM/DEX 100 ML IV SCH ×3 (07:35→17:11)
[2018-08-10] MEDS: metFORMIN HCL 500 MG TAB PO SCH ×3 (08:42→18:02)
[2018-08-10] MEDS: FLUoxetine 20 MG CAP PO SCH (08:42)
[2018-08-10] MEDS: INSULIN GLARGINE 100 UNITS/ML UNIT SC SCH (08:42)
[2018-08-10] MEDS: FUROSEMIDE 40 MG/4 ML VIAL IVP SCH ×2 (08:42→15:34)
[2018-08-10] MEDS: ENOXAPARIN 150 MG/ML SYR SC SCH ×2 (08:42→21:52)
--- NOTE | 2018-08-10 12:10 | PCMIDPN ---
Assessment/Plan: Assessment/Plan: * Sepsis with bilateral lower extremity cellulitis: Improvement in both lower extremities, most notable in right lower extremity. Erythema less intense in left lower extremity with pustules beginning to deflate without new pustule formation. Cultures from purulence expressed from pustule showing growth of Pseudomonas preliminarily (please note initial culture was obtained from ulcer bed and will be more difficult to interpret as this has high likelihood of colonization with multiple organisms). Query if this is somewhat atypical presentation of ecthyma. No gram-positive paul isolated. Will continue Zosyn dosed for Pseudomonal infection. Will discontinue vancomycin given no gram- positive paul isolated to date. Overall circumstance complicated by underlying venous insufficiency and left-sided DVT/retroperitoneal mass which further impairs venous return. Concerned this will be ongoing problem based on these 2 findings. If were to continue forming pustules with antibiotic therapy , other consideration would be unusual manifestation of pyoderma gangrenosum. * Leukocytosis: This is chronic in nature and may be multifactorial including component related to infection as well as underlying metastatic renal cell cancer. Time spent, greater than 35 min, which greater than half was spent in education/ counseling/coordination of care related to sepsis in bilateral lower extremity cellulitis in the setting of metastatic renal cell cancer with review of ongoing antibiotic management and culture findings. Care was coordinated with Dr. Pulido and nursing staff. 08/10/18 12:05 08/10/18 12:12 Subjective: Patient with persistent lower extremity pain although more tolerable than yesterday. Objective: Vital Signs Temp Pulse Resp BP Pulse Ox 36.4 C 90 16 124/59 H 92 08/10/18 07:37 08/10/18 10:00 08/10/18 10:00 08/10/18 10:00 08/10/18 10:00 Microbiology 08/09/18 12:00 Gram Stain - Final Leg - Swab 08/08/18 21:25 Gram Stain - Final Leg - Swab Laboratory Results 08/10/18 04:30 08/10/18 04:30 08/09/18 08/10/18 08/11/18 05:59 05:59 05:59 Intake Total 5800 2754 Output Total 2050 3150 Balance 3750 -396 Vancomycin # 2 Zosyn # 2 Blood cultures x2 no growth Pustule culture with growth of non lactose fermenting gram-negative goran which is preliminarily consistent with Pseudomonas Ulcer culture showing growth of Pseudomonas and Klebsiella species - Physical Exam General Appearance: alert, non-toxic EENT: No scleral icterus, No thrush Respiratory: lungs clear, No respiratory distress Cardiac/Chest: regular rate, rhythm Extremities: inflammation (Left lower extremity with less intense erythema and no spread of erythema; pustules starting to deflate; no new pustules present; remains tender to palpation; large area of denuded skin present anteriorly and posteriorly; clear bulla over dorsal aspect of foot also decreasing; right lower extremity with marked reduction in erythema) Abdomen: non-tender, No distended Skin: No embolic lesions ICD10 Worksheet Patient Problems: Problems Problem Status Onset Septic shock Acute Fever Acute Pain management Acute Renal cell carcinoma Acute Severe low back pain Acute
--- NOTE | 2018-08-10 12:28 | PDINTPN ---
Roller Inspector Progress Note Assessment/Plan: Assessment: Bilateral lower extremity cellulitis. On antibiotics, legs up, on Lasix, improving. ID following. Sepsis, secondary to above. Resolving. Lymphedema. Bilateral lower extremity edema. Contributing to recurrent cellulitis and unresponsiveness to antibiotics. On more aggressive Lasix diuresis. Fluid retention is only 1 reason for lymphedema in swelling, with metastatic renal cell carcinoma, DVT on L, obesity, in inflammation from infection contributing as well. Morbid obesity Metastatic renal cell carcinoma. Since 2011. Status post nephrectomy. Status post multiple failed chemotherapeutic regimens. No cor, followed by hospice. Chronic pain, narcotic use. IV Dilaudid added yesterday for dressing changes. Pain appears better controlled today. DVT. Recently diagnosed left lower extremity DVT. On full-dose anticoagulation. Type 2 diabetes. Elevated blood sugars. On Lantus, metformin. Plan: Continue care in the intensive care unit. Continue antibiotics per Infectious Disease. Vancomycin stopped. Continue Lasix 40 mg IV twice daily. Follow renal function and decrease if BUN/creatinine started rising from his unilateral kidney. Continue pain medications and pain control. Continue full- dose enoxaparin. Will add Pepcid as he is not eating significantly. Follow laboratory, clinical status. 35 min of critical care time spent directly with the patient managing issues as above. Discussed with the patient's , hospitalist, nursing, and the ICU multi disciplinary team. Subjective: Somnolent, arousable. Complains of pain in the lower extremities. Objective: Vital Signs Temp Pulse Resp BP Pulse Ox 36.4 C 98 17 110/71 95 08/10/18 07:37 08/10/18 12:00 08/10/18 12:00 08/10/18 12:00 08/10/18 12:00 Microbiology 08/09/18 12:00 Gram Stain - Final Leg - Swab 08/08/18 21:25 Gram Stain - Final Leg - Swab Laboratory Results 08/10/18 04:30 08/10/18 04:30 08/09/18 08/10/18 08/11/18 05:59 05:59 05:59 Intake Total 5800 2754 Output Total 9310 3150 Balance 3750 -396 Microbiology 08/08/18 21:25 Leg - Swab Gram Stain - Final 08/08/18 21:25 Leg - Swab Wound Culture - Preliminary Pseudomonas Aeruginosa Klebsiella Variicola Physical Exam - Physical Exam General Appearance: mild distress, obese, other (Somnolent, arouses) EENT: PERRL/EOMI, other (On room air) Neck: normal inspection (Large neck, no obvious JVD) Respiratory: lungs clear (Anteriorly), decreased breath sounds (At bases), No rales, No rhonchi Cardiac/Chest: regular rate, rhythm (Decreased heart tones) Abdomen: non-tender, soft (Obese, large pannus), No normal bowel sounds ( Decreased, present) Male Genitalia: other (Dias catheter removed) Skin: normal color, warm/dry, other (Erythema over lower extremities is improved , especially on the right) Extremities: pedal edema (3 to 4+ lower extremity swelling), swelling Neuro/Psych: no motor/sensory deficits, cognition abnormalities (Confused at times, oriented x2) ICD10 Worksheet Patient Problems: Problems Problem Status Onset Septic shock Acute Fever Acute Pain management Acute Renal cell carcinoma Acute Severe low back pain Acute
--- NOTE | 2018-08-10 12:34 | SOAPPROG ---
SOAP Progress Note Assessment/Plan: Assessment: - Pseudomonas cellulitis - ID input appreciated. Vancomycin D/C since no GPC. Day by day evaluation for possible debriding. - DVT - on Rx with Lovenox - Refractory metastatic renal cell CA - failing 5th line therapy. Ongoing discussion about goals of care. - Pain - adjusting pain meds/transitioning to methadone for terminal clerk relief Plan: - infection Rx per ID - transition to methadone for pain control - physical therapy as tolerated - he may need rehab/snf post acute care hospitalization Subjective: Pain is still an issue. Dias now out because it was bothering him. Objective: Vital Signs Temp Pulse Resp BP Pulse Ox 36.4 C 98 17 110/71 95 08/10/18 07:37 08/10/18 12:00 08/10/18 12:00 08/10/18 12:00 08/10/18 12:00 Microbiology 08/09/18 12:00 Gram Stain - Final Leg - Swab 08/08/18 21:25 Gram Stain - Final Leg - Swab Laboratory Results 08/10/18 04:30 08/10/18 04:30 08/08/18 08/09/18 08/10/18 23:59 23:59 23:59 Intake Total 5400 2004 1150 Output Total 1000 3500 700 Balance 4400 -1496 450 Physical Exam - Physical Exam General Appearance: obese Extremities: other (swelling decreasing. LE wrapped.) Neuro/Psych: other (somnolent but responds to voice.) ICD10 Worksheet Patient Problems: Problems Problem Status Onset Septic shock Acute Fever Acute Pain management Acute Renal cell carcinoma Acute Severe low back pain Acute
--- NOTE | 2018-08-10 13:28 | HOSPPROG ---
Hospitalist Progress Note Assessment/Plan: #Severe sepsis: due to BL leg cellulitis, ulcerations. Klebsiella/Pseudomonas on culture. Zosyn, stop Vanc. #Lymphedema: from cancer. Contributing to ulcerations. Aggressive IV diuresis #Metastatic RCC: followed by Dr. Oakley #Chronic pain on chronic opioids: hold Opana with AMS. Cont methadone, oxycodone. Goal is to transition to only Methadone in future. #Acute metabolic encephalopathy: infection +/- opioids. A&Ox 3 during my exam. Waxing/waning. #Obesity #Leukocytosis: been elevated for past month. Abx as above #Lactic acidosis: elevated for past month. Improved some with IVFs #BL LE DVT: Lovenox #DM 2: Glargine, SSI #Diet: ADAt #DVT ppx: Lovenox Disp: inpatient admission for IV abx, lasix. Case d/w Dr. Escobar and Dr. Disla Subjective: less redness right leg today Objective: Vital Signs Temp Pulse Resp BP Pulse Ox 36.4 C 98 17 110/71 95 08/10/18 07:37 08/10/18 12:00 08/10/18 12:00 08/10/18 12:00 08/10/18 12:00 Microbiology 08/09/18 12:00 Gram Stain - Final Leg - Swab 08/08/18 21:25 Gram Stain - Final Leg - Swab Laboratory Results 08/10/18 04:30 08/10/18 04:30 08/09/18 08/10/18 08/11/18 05:59 05:59 05:59 Intake Total 5800 2759 Output Total 3643 7473 Balance 3750 -396 - Time Spent With Patient Time Spent with Patient: greater than 35 minutes Time Spent with Patient: Greater than 35 minutes spent on this patients care, greater than 50% of time spent counseling, educating, and coordinating care regarding the above mentioned plan. - Physical Exam Constitutional: obese Eyes: PERRL Ears, Nose, Mouth, Throat: moist mucous membranes Cardiovascular: regular rate and rhythym Respiratory: no respiratory distress Gastrointestinal: normoactive bowel sounds Musculoskeletal: other (BL legs wrapped, but redness on right legs improved. Still significant edema, BL legs) Neurologic: AAOx3 Psychiatric: interacting appropriately ICD10 Worksheet Patient Problems: Problems Problem Status Onset Septic shock Acute Fever Acute Pain management Acute Renal cell carcinoma Acute Severe low back pain Acute
[2018-08-10] MEDS: MELATONIN 3 MG TAB PO SCH (21:52)
[2018-08-11] MEDS: PIPERACILLIN/TAZO 4.5 GM/DEX 100 ML IV SCH ×4 (00:14→17:31)
[2018-08-11] MEDS: GABAPENTIN 300 MG CAP PO SCH ×3 (06:00→21:31)
[2018-08-11] MEDS: METHADONE HCL 10 MG TAB PO SCH ×3 (06:00→21:31)
[2018-08-11] MEDS: LEVOTHYROXINE 25 MCG TAB PO SCH (06:00)
[2018-08-11] MEDS: FUROSEMIDE 40 MG/4 ML VIAL IVP SCH ×2 (08:01→15:11)
[2018-08-11] MEDS: FLUoxetine 20 MG CAP PO SCH (08:02)
[2018-08-11] MEDS: ENOXAPARIN 150 MG/ML SYR SC SCH ×2 (08:02→21:32)
[2018-08-11] MEDS: INSULIN GLARGINE 100 UNITS/ML UNIT SC SCH (08:02)
[2018-08-11] MEDS: metFORMIN HCL 500 MG TAB PO SCH ×2 (08:02→18:24)
--- NOTE | 2018-08-11 08:20 | PDINTPN ---
Diving Supervisor Progress Note Assessment/Plan: Assessment/Plan: * Bilateral lower extremity cellulitis. On antibiotics, legs up, on Lasix, improving. ID following. -wound Care to see * Sepsis, secondary to above. Resolved * Lymphedema. Bilateral lower extremity edema. Contributing to recurrent cellulitis and unresponsiveness to antibiotics. On more aggressive Lasix diuresis. Fluid retention is only 1 reason for lymphedema in swelling, with metastatic renal cell carcinoma, DVT on L, obesity, in inflammation from infection contributing as well. * Morbid obesity * Metastatic renal cell carcinoma. Since 2011. Status post nephrectomy. Status post multiple failed chemotherapeutic regimens. * No cor, followed by hospice. * Chronic pain, narcotic use. IV Dilaudid added yesterday for dressing changes. Pain appears better controlled today. * DVT. Recently diagnosed left lower extremity DVT. On full-dose anticoagulation. * Type 2 diabetes. Elevated blood sugars. On Lantus, metformin. -controlled * Disposition-okay for transfer to floor Subjective: Resting comfortably. No complaints currently Objective: Vital Signs Temp Pulse Resp BP Pulse Ox 36.6 C 86 13 129/58 H 91 L 08/11/18 06:00 08/11/18 06:00 08/11/18 06:00 08/11/18 06:00 08/11/18 06:00 Microbiology 08/08/18 21:25 Gram Stain - Final Leg - Swab 08/09/18 12:00 Gram Stain - Final Leg - Swab Laboratory Results 08/11/18 05:55 08/11/18 05:55 08/10/18 08/11/18 08/12/18 05:59 05:59 05:59 Intake Total 2754 7496 Output Total 2310 2500 Balance -396 -754 Laboratory Results 08/11/18 05:55 08/11/18 05:55 08/11/18 05:55 Calcium 9.5 mg/dL mg/dL (8.5 - 10.4) Magnesium 1.6 mg/dL mg/dL (1.6 - 2.3) 08/09/18 12:00 Gram Stain - Final Leg - Swab Wound Culture - Preliminary Pseudomonas Aeruginosa 08/08/18 21:25 Gram Stain - Final Leg - Swab Wound Culture - Preliminary Pseudomonas Aeruginosa Klebsiella Variicola 08/08/18 21:17 Urine Culture - Preliminary Unspecified Yeast Species - Time Spent With Patient Time Spent With Patient: 35 min of critical care time spent with patient. Case discussed with Nursing and hospitalist Physical Exam - Physical Exam General Appearance: alert, no apparent distress EENT: PERRL/EOMI Neck: non-tender Respiratory: chest non-tender, lungs clear Cardiac/Chest: normal peripheral pulses, regular rate, rhythm Abdomen: normal bowel sounds, non-tender Male Genitalia: deferred Rectal: deferred Skin: normal color, warm/dry Neuro/Psych: alert ICD10 Worksheet Patient Problems: Problems Problem Status Onset Septic shock Acute Fever Acute Pain management Acute Renal cell carcinoma Acute Severe low back pain Acute
--- NOTE | 2018-08-11 08:48 | HOSPPROG ---
Hospitalist Progress Note Assessment/Plan: #Severe sepsis: due to BL leg cellulitis with ulcerations. Klebsiella/ Pseudomonas on culture -cont zosyn #Lymphedema: from cancer. Contributing to ulcerations. -cont IV diuresis -wound care #Metastatic RCC: Recent CT reviewed, increasing size of RP mass and osseous mets , on 5th line therapy which is currently held, followed by Dr. Oakley -poor pain control (opana stopped on admission due to AMS): increase methadone, cont prn oxy plus IV dilaudid as needed. Also, increase gabapentin #Chronic pain on chronic opioids: Opana held as above. Transitioning to Methadone as primary pain med plus prn oxy, dilaudid #Acute metabolic encephalopathy: infection +/- opioids. A&Ox 3 during my exam, but pt main concern is poor pain control -monitor mentation with need for increased opiates #Obesity #Leukocytosis: been elevated for past month. Abx as above #Lactic acidosis: elevated for past month. Improved some with IVFs #BL LE DVT: Lovenox #DM 2: Glargine, SSI #Diet: ADAt #DVT ppx: Lovenox Disp: cont inpt, transfer to med/surg, discussed with Dr. Bradshaw. Discussed hospice with pt, he is open to this, possibly already followed by [facility]? Subjective: Pt c/o pain, says we are giving him "way less" opiates than he normally takes. His biggest concern is the discomfort and pain he is experiencing. He is open to hospice, notes he has been fighting cancer for a very long time and is tired. No fevers/chills. Poor appetite. Objective: Vital Signs Temp Pulse Resp BP Pulse Ox 36.6 C 86 13 129/58 H 91 L 08/11/18 06:00 08/11/18 06:00 08/11/18 06:00 08/11/18 06:00 08/11/18 06:00 Microbiology 08/08/18 21:25 Gram Stain - Final Leg - Swab 08/09/18 12:00 Gram Stain - Final Leg - Swab Laboratory Results 08/11/18 05:55 08/11/18 05:55 08/10/18 08/11/18 08/12/18 05:59 05:59 05:59 Intake Total 1750 7036 Output Total 0052 2500 Balance -396 -754 - Physical Exam Constitutional: no apparent distress Eyes: PERRL Ears, Nose, Mouth, Throat: moist mucous membranes Cardiovascular: regular rate and rhythym Respiratory: no respiratory distress, clear to auscultation Gastrointestinal: normoactive bowel sounds, soft, non-tender abdomen Skin: warm Musculoskeletal: other (b/l LE's wrapped, erythema has receded from previous borders) Neurologic: AAOx3 Psychiatric: interacting appropriately ICD10 Worksheet Patient Problems: Problems Problem Status Onset Septic shock Acute Fever Acute Pain management Acute Renal cell carcinoma Acute Severe low back pain Acute
--- NOTE | 2018-08-11 10:36 | PCMIDPN ---
Assessment/Plan: Assessment: Lower extremity cellulitis secondary to chronic venous insufficiency and lymphedema secondary to retroperitoneal mass due to metastatic renal cancer. Cultures from the lower extremity pustules do reveal Pseudomonas and Klebsiella. Both are covered by current ongoing Zosyn use. Will continue to use this monotherapy and evaluate the appearance of the lower extremities however the entirety of the swelling will not be expected to resolve secondary to the obstruction. Plan: 1. Continue empiric IV Zosyn. 2. Follow appearance lower extremities. 08/11/18 10:34 Subjective: Patient is sleeping soundly. Did not awaken. Discussed patient's situation with nurse. He is comfortable at present time. Objective: Zosyn # 3 Vital Signs Temp Pulse Resp BP Pulse Ox 36.6 C 87 14 121/54 H 90 L 08/11/18 06:00 08/11/18 08:00 08/11/18 08:00 08/11/18 08:00 08/11/18 08:00 Microbiology 08/09/18 12:00 Gram Stain - Final Leg - Swab Wound Culture - Final Pseudomonas Aeruginosa 08/08/18 21:25 Gram Stain - Final Leg - Swab Laboratory Results 08/11/18 05:55 08/11/18 05:55 08/10/18 08/11/18 08/12/18 05:59 05:59 05:59 Intake Total 2754 1706 Output Total 8100 2872 Balance -396 -194 - Physical Exam General Appearance: WD/WN, no apparent distress Cardiac/Chest: regular rate, rhythm, No tachycardia Extremities: swelling, erythema, No normal inspection Skin: normal color, warm/dry, No rash ICD10 Worksheet Patient Problems: Problems Problem Status Onset Septic shock Acute Fever Acute Pain management Acute Renal cell carcinoma Acute Severe low back pain Acute
[2018-08-11] MEDS: HYDROmorphONE/DILAUDID 1 MG/ML INJ IVP PRN (11:40)
[2018-08-11] MEDS ORDERED: GABAPENTIN 300 MG CAP PO SCH (14:00)
--- NOTE | 2018-08-11 14:16 | ASMTCMCOM ---
CM Note CM Note Notes: Hospitalist has put in an order for Hospice care. Patient has been involved with [facility] so contact was made to [facility] and a referral sent. They can meet with patient and Saturday at 2:00 PM. Date Signed: 08/11/2018 02:15 PM Electronically Signed By:Madelin Gordon LCSW
--- NOTE | 2018-08-11 14:57 | WOCRNPDOC ---
WOCRM[facility] Advanced Assessment Note - Skin Integrity Problem, Advanced Assess Left Foot Blister Dressing Type: Isidoro Bandage, Kerlix Exudate Amount: None Wound Bed Constitution: Intact Serous Filled Blister Site Measurement - Head-to-Toe Length X Width X Depth (cm): [id number] blister Skin Integrity Problem Comment: Intact raised blister with dark red/purple borders. Left Lower Leg Dressing Type: ABD Pad, Isidoro Bandage, Adaptic Touch, Kerlix Dressing Description: Intact, Shadowed Exudate Amount: Moderate Exudate Characteristic(s): Purulent, Serous Integumentary Issue Intervention: Dressing Removed Crescencio Wound Tissue: Erythema, Denuded, Painful/Tender Wound Bed Constitution: Granulation Tissue (10%), Red/Heppner - Non Granular Tissue (40%), Mixed Loose & Adhered Slough/Eschar (50%) Wound Edges: Attached Site Measurement - Head-to-Toe Length X Width X Depth (cm): Wound is almost circumferential along patient's left gaiter area. Large area of necrosis (eschar ) on left antior medial lower leg is: 8x11x0.3 Pulse Location & Description: 2+ DP Extremity Temperature: Warm Skin Integrity Problem Comment: Left leg is significantly more erythematic, swollen, painful with much worse wounds than the right. There is a large wound that is essentially the entire circumference of his left lower leg. It is mixed partial/full thickness. There is desquamtion of the epidermis throughout. There is a large areas of full thickness necrosis on the distal/anterior/medial portion which will need to be debrided. The posterior wound is mainly full thickness and is covered with a thin layer of slough. There is extensive purulent blistering/drainage from below the knee to the patient's ankles. Some were intact and others open full thickness ones. Some are erupting, others are more formed. Some were de roofed with sterile scissors and flushed cleaned with ns. The entire leg was mechanically debrided with gauze and cleaned well with ns. Patient was generally screaming in pain with the slightest touch of the leg and when wounds are manipulated in any way the pain became almost unbearable despite multiple administrations of pain medication. Discussed the possibility of biologic debridement (medical maggots) of the large medial/distal necrotic portion if patient is not going to the OR. The patient is in accord with this plan. Awaiting discussion of this with hospitlist. Interim orders for Vashe wound cleanser and xeroform to wound beds written. Right Lower Leg Dressing Type: ABD Pad, Isidoro Bandage, Adaptic Touch, Kerlix Dressing Description: Intact, Shadowed Exudate Amount: Moderate Exudate Characteristic(s): Purulent, Serous Integumentary Issue Intervention: Dressing Removed Crescencio Wound Tissue: Erythema (crescencio wound to 1 cm out past wound eges. ), Painful/ Tender Wound Bed Constitution: Granulation Tissue (30%), Red/Heppner - Non Granular Tissue (55%), Mixed Loose & Adhered Slough/Eschar (15%) Wound Edges: Attached Site Odor: Moderate, Musky, Pungent Site Measurement - Head-to-Toe Length X Width X Depth (cm): Medial leg blister: 2.3x1.8xraised purulent, Lateral leg open ulcer: 12x9x0.3 Pulse Location & Description: 2+ DP Extremity Temperature: Warm Skin Integrity Problem Comment: Painful ulceration with desquamation of epidermis. Purulent blistering resulting in full thickness necrotic pocketing througout larger ulceration which is mostly partial thickness. Mechanically debrided non viable skin and tissue to patient tolerance. Small area of eschar remains in inferior wound bed measuring about 1x2.5 cm. Patient has negative stemmers sign.
--- NOTE | 2018-08-11 15:46 | SOAPPROG ---
SOAP Progress Note Assessment/Plan: Assessment/Plan: 53 yo gentleman w stage IV RCC admitted w bilateral LE cellulitis, LLE>R and LLE DVT 1. cellulitis - micro w klebsiella and pseudomonas on zosyn appreciate ID and wound care will be ongoing problem w lymphedema caused by renal mass 2. LLE DVT - on full dose AC; no bleeding 3. Stage 4 RCC - cabozantinib on hold 4. Pain - transition to methadone 5. Leukocytosis - likely from infection, monitor 6. Goals of care to be addresses; hospice consult 08/11/18 15:43 08/11/18 15:45 Subjective: No acute events pain very sleepy reports LLE edema better Objective: Vital Signs Temp Pulse Resp BP Pulse Ox 36.6 C 87 14 121/54 H 90 L 08/11/18 06:00 08/11/18 08:00 08/11/18 08:00 08/11/18 08:00 08/11/18 08:00 Microbiology 08/09/18 12:00 Gram Stain - Final Leg - Swab Wound Culture - Final Pseudomonas Aeruginosa 08/08/18 21:25 Gram Stain - Final Leg - Swab Laboratory Results 08/11/18 05:55 08/11/18 05:55 08/10/18 08/11/18 08/12/18 05:59 05:59 05:59 Intake Total 2754 6406 Output Total 3455 1838 1500 Balance -396 -942 -1500 Gen - asleep lower ext - bilateral LE edema, L>R erythema bilaterally w open wounds/pustules mostly on LLE ICD10 Worksheet Patient Problems: Problems Problem Status Onset Septic shock Acute Fever Acute Pain management Acute Renal cell carcinoma Acute Severe low back pain Acute
[2018-08-11] MEDS: MELATONIN 3 MG TAB PO SCH (21:33)
--- NOTE | 2018-08-11 23:09 | GHP ---
DATE OF ADMISSION: 08/08/2018 Patient is a 53-year-old male I was asked to see for evaluation of leg lesions. He is known to have a history of metastatic renal cell cancer with partial obstruction of his ureter on the left with a r etroperitoneal mass. He also has marked swelling of both legs, left greater than right, and a known DVT in his left femoral vein. He has worsening skin ulcerations on both legs but particularly on the left. I was consulted for evaluation for possible debridement and wound care. ALLERGIES: Lisinopril. MEDICATIONS: Include methadone, Cabometyx, Prozac, Celebrex, oxycodone, Valium, gabapentin, Augmenti n, doxycycline, Lovenox, Lasix, Lantus, Opana, and Glucophage. REVIEW OF SYSTEMS: Not very obtainable tonight as the patient is quite sedated and poorly responsive . PAST MEDICAL HISTORY: Includes metastatic renal cell cancer, diabetes, history of recent sepsis, chr onic pain and opioid dependence, hypothyroidism, and DVT. SOCIAL HISTORY: He is . He does not smoke. PHYSICAL EXAMINATION: GENERAL: Lethargic 53-year-old male who does respond but poorly to verbal que stions. He is afebrile. HEENT: His pupils are equal and reactive. EOMs are intact. There is no a denopathy or bruits. CHEST: Symmetrical clear breath sounds. CARDIAC: Regular rhythm without murm urs. ABDOMEN: Soft and nontender without masses. He has positive bowel sounds. EXTREMITIES: Full range of motion. He has good palpable pedal pulses. He has bilateral significant edema, left much greater than the right. He has bilateral superficial ulcerations on the distal legs. The left is mu ch worse than the right. NEUROLOGIC: Difficult to assess because of his lethargy. PSYCH: Difficul t to assess because of his present lethargy, but he does appear to be responsive and cooperative. IMPRESSION: Cellulitis and significant ulcerations to both legs, probably secondary to venous stasis problems since he has excellent arterial flow and marked leg edema. RECOMMENDATIONS: Probable surgical debridement and then counter pressure treatment with Unna boots o r other options. He needs a significant leg elevation and continued anticoagulation. Risks are sign ificant with his underlying history of metastatic cancer. I will discuss this with the internal medi formerly [facility] people. /[id number]/MODL
[2018-08-12] MEDS: PIPERACILLIN/TAZO 4.5 GM/DEX 100 ML IV SCH ×4 (00:22→18:38)
[2018-08-12] MEDS: GABAPENTIN 300 MG CAP PO SCH ×3 (05:26→21:39)
[2018-08-12] MEDS: LEVOTHYROXINE 25 MCG TAB PO SCH (05:27)
[2018-08-12] MEDS: METHADONE HCL 10 MG TAB PO SCH ×3 (05:27→21:40)
[2018-08-12] MEDS: FUROSEMIDE 40 MG/4 ML VIAL IVP SCH ×2 (08:27→16:02)
[2018-08-12] MEDS: ENOXAPARIN 150 MG/ML SYR SC SCH (08:27)
[2018-08-12] MEDS: FLUoxetine 20 MG CAP PO SCH (08:42)
--- NOTE | 2018-08-12 10:30 | PCMIDPN ---
Assessment/Plan: # Sepsis with L>R lower extremity cellulitis: Erythema much more prominent on L today, with open ulcers and scattered pustules, edema also much more prominent L>R, 2+ pulses. Cx showing PsA and Klebsiella. WBC improved. Cr Stable 1.0 today. Sepsis resolved. --continue high dose Zosyn. --noted consideration for possible surgical debridement --needs elevation (not elevated at time of my exam) meds zosyn 4.5gm IV [id number] #4 Microbiology 08/09/18 12:00 Leg - Swab Pseudomonas Aeruginosa 08/08/18 21:25 Leg - Swab Pseudomonas Aeruginosa; Klebsiella Variicola 08/08/18 20:00 Blood Cx (2) NGTD Subjective: patient very sleepy, barely wakes up to exam Objective: Vital Signs Temp Pulse Resp BP Pulse Ox 36.8 C 84 16 127/69 H 3 L 08/12/18 08:00 08/12/18 08:00 08/12/18 08:00 08/12/18 08:00 08/12/18 08:00 Microbiology 08/08/18 21:17 Urine Culture - Final Unspecified Merissa Albicans 08/08/18 21:25 Gram Stain - Final Leg - Swab Wound Culture - Final Pseudomonas Aeruginosa Klebsiella Variicola 08/09/18 12:00 Gram Stain - Final Leg - Swab Wound Culture - Final Pseudomonas Aeruginosa Laboratory Results 08/12/18 05:05 08/12/18 05:05 08/11/18 08/12/18 08/13/18 05:59 05:59 05:59 Intake Total 1746 385 Output Total 1984 2024 [facility] -[phone] Gen: obese, chr ill appearance CV: RRR Chest: breathing easy Abd: soft NT : cortez, dark yellow urine ext: LLE stocking distribution erythema with open ulcerations and scattered pustules; 2+ edema LLE, minimal edema RLE less ulcerations, minimal erythema Skin: no rash - Time Spent With Patient Time Spent with Patient: greater than 25 minutes Time Spent with Patient: Greater than 25 minutes spent on this patients care, greater than 50% of time spent counseling, educating, and coordinating care regarding the above mentioned plan. ICD10 Worksheet Patient Problems: Problems Problem Status Onset Septic shock Acute Fever Acute Pain management Acute Renal cell carcinoma Acute Severe low back pain Acute
[2018-08-12] MEDS: HYDROmorphONE/DILAUDID 1 MG/ML INJ IVP PRN (10:44)
[2018-08-12] MEDS: metFORMIN HCL 500 MG TAB PO SCH (11:11)
[2018-08-12] MEDS: INSULIN GLARGINE 100 UNITS/ML UNIT SC SCH (11:12)
--- NOTE | 2018-08-12 13:05 | WOCRNPDOC ---
WOCRN Advanced Assessment Note - Skin Integrity Problem, Advanced Assess Left Lower Leg Dressing Type: ABD Pad, Kerlix, Xeroform Dressing Description: Intact, Saturated Closure Description: Not Approximated Exudate Amount: Excessive Exudate Color: Yellow Exudate Characteristic(s): Serous Integumentary Issue Intervention: Dressing Changed, Mechanical Debridement Elisa Wound Tissue: Erythema, Macerated, Swollen, Weeping, Denuded Elisa Wound Swelling: Moderate Wound Bed Color: Brown, Narciso Pena, Yellow Wound Bed Constitution: Granulation Tissue (10%), Red/Narciso Pena - Non Granular Tissue (40%), Mixed Loose & Adhered Slough/Eschar (50%) Wound Edges: Irregular Skin Integrity Problem Comment: Dressing change performed today with assist from NATHAN Da Silva. Wounds cleaned with Vashe as per previous orders. Mechanical debridement attempted to patient tolerance but slough remains largely adherant. Patient is to have a hospice consult today @ 2PM. Notes per Dr. Chambers from last night indicate possible surgical debridement but also pending outcome of hospice meeting later today. Wound care will continue to round on patient. Update as of 2PM: Dr. Chambers plans to take patient to OR tomorrow for debridement. Will have wound care round tomorrow to be sure this is still the plan.
--- NOTE | 2018-08-12 14:22 | SOAPPROG ---
SOAP Progress Note Assessment/Plan: Assessment/Plan: 53 Y M hx metastatic renal cell CA, cellulitis, sepsis. Wounds viewed directly with Dr. Chambers and RN today. Plan to go to OR tomorrow for debridement. Good arterial flow for healing. Elevate legs. Hospice consulting today. 08/12/18 14:19 Objective: Vital Signs Temp Pulse Resp BP Pulse Ox 36.9 C 101 H 18 139/79 H 95 08/12/18 12:00 08/12/18 12:00 08/12/18 12:00 08/12/18 12:00 08/12/18 12:00 Microbiology 08/08/18 21:17 Urine Culture - Final Unspecified Merissa Albicans 08/08/18 21:25 Gram Stain - Final Leg - Swab Wound Culture - Final Pseudomonas Aeruginosa Klebsiella Variicola 08/09/18 12:00 Gram Stain - Final Leg - Swab Wound Culture - Final Pseudomonas Aeruginosa Laboratory Results 08/12/18 05:05 08/12/18 05:05 08/11/18 08/12/18 08/13/18 05:59 05:59 05:59 Intake Total 3626 385 Output Total 8994 3898 Jupnykg -[id number] -6611 ICD10 Worksheet Patient Problems: Problems Problem Status Onset Septic shock Acute Fever Acute Pain management Acute Renal cell carcinoma Acute Severe low back pain Acute
--- NOTE | 2018-08-12 15:02 | HOSPPROG ---
Hospitalist Progress Note Assessment/Plan: #Severe sepsis: due to BL leg cellulitis with ulcerations. Klebsiella/ Pseudomonas on culture -cont zosyn per ID #Lymphedema: from cancer. Contributing to ulcerations, which are very painful -cont IV diuresis -wound care difficult due to pain -appreciate surgical consultation, planning for operative debridement tomorrow #Metastatic RCC: Recent CT reviewed, increasing size of RP mass and osseous mets , on 5th line therapy which is currently held, followed by Dr. Oakley -poor pain control (opana stopped on admission): increased methadone, cont prn oxy plus IV dilaudid as needed -discussed with Dr. Plata, oncology, who agrees with hospice #Chronic pain on chronic opioids: Opana held as above. Transitioning to Methadone as primary pain med plus prn oxy, dilaudid #Acute metabolic encephalopathy: infection +/- opioids. Consider brain mets with increased agitation and delirium -brain MRI to eval for mets -monitor mentation with need for increased opiates #Leukocytosis: trending down with tx of infection #Lactic acidosis: elevated for past month. Improved some with IVFs #BL LE DVT: Lovenox, possibly hold in am for surgical debridement #DM 2: Halve glargine given bg 54 this am and decreased intake. #Diet: ADAT #DVT ppx: Lovenox Disp: cont inpt, transfer to med/surg Discussed hospice with pt's . She is starting to come to terms with this. SW to do proxy paperwork. Subjective: Pt is resting comfortably, mostly sleeps during my visit with his . She reports episodes of increased agitation. His pain is better controlled, but he is more sleepy. Plans for operative debridement of leg wounds tomorrow. Objective: Vital Signs Temp Pulse Resp BP Pulse Ox 36.9 C 101 H 18 139/79 H 95 08/12/18 12:00 08/12/18 12:00 08/12/18 12:00 08/12/18 12:00 08/12/18 12:00 Microbiology 08/08/18 21:17 Urine Culture - Final Unspecified Merissa Albicans 08/08/18 21:25 Gram Stain - Final Leg - Swab Wound Culture - Final Pseudomonas Aeruginosa Klebsiella Variicola 08/09/18 12:00 Gram Stain - Final Leg - Swab Wound Culture - Final Pseudomonas Aeruginosa Laboratory Results 08/12/18 05:05 08/12/18 05:05 08/11/18 08/12/18 08/13/18 05:59 05:59 05:59 Intake Total 1740 385 Output Total 3364 2024 [facility] -[phone] - Physical Exam Constitutional: no apparent distress Eyes: PERRL Ears, Nose, Mouth, Throat: moist mucous membranes Cardiovascular: regular rate and rhythym Respiratory: no respiratory distress, clear to auscultation Gastrointestinal: normoactive bowel sounds, soft, non-tender abdomen Skin: warm Musculoskeletal: generalized weakness, other (LLE with severe edema, erythema and pustules with necrotic regions) Psychiatric: encephalopathic ICD10 Worksheet Patient Problems: Problems Problem Status Onset Septic shock Acute Fever Acute Pain management Acute Renal cell carcinoma Acute Severe low back pain Acute
--- NOTE | 2018-08-12 15:51 | SOAPPROG ---
SOAP Progress Note Assessment/Plan: Assessment/Plan: 53 yo gentleman w stage IV RCC admitted w bilateral LE cellulitis, LLE>R and LLE DVT 1. cellulitis - micro w klebsiella and pseudomonas on zosyn appreciate ID and wound care will be ongoing problem w lymphedema caused by renal mass Chambers to take to OR tomorrow for debridement 2. LLE DVT - on full dose AC; no bleeding hold 12 hours prior to OR 3. Stage 4 RCC - cabozantinib on hold 5th line therapy also exposed to IO without response limited options going forward hospice consult today but still in contemplation stage and wants to be more alert and oriented for discussion MRI brain ordered 4. Pain - transition to methadone 5. Leukocytosis - likely from infection, monitor 6. Goals of care - ongoing discussion 08/11/18 15:43 08/11/18 15:45 08/12/18 15:48 08/12/18 15:49 Subjective: No acute events remains lethargic and somnolent on pain meds Objective: Vital Signs Temp Pulse Resp BP Pulse Ox 36.9 C 101 H 18 139/79 H 95 08/12/18 12:00 08/12/18 12:00 08/12/18 12:00 08/12/18 12:00 08/12/18 12:00 Microbiology 08/08/18 21:17 Urine Culture - Final Unspecified Merissa Albicans 08/08/18 21:25 Gram Stain - Final Leg - Swab Wound Culture - Final Pseudomonas Aeruginosa Klebsiella Variicola 08/09/18 12:00 Gram Stain - Final Leg - Swab Wound Culture - Final Pseudomonas Aeruginosa Laboratory Results 08/12/18 05:05 08/12/18 05:05 08/11/18 08/12/18 08/13/18 05:59 05:59 05:59 Intake Total 1746 385 Output Total 6236 2024 Balance -754 -1640 Not examined today legs bandaged ICD10 Worksheet Patient Problems: Problems Problem Status Onset Septic shock Acute Fever Acute Pain management Acute Renal cell carcinoma Acute Severe low back pain Acute
--- NOTE | 2018-08-12 16:38 | ASMTCMCOM ---
CM Note CM Note Notes: [facility] met with patient and his today to discuss a plan. Patient's did not want to make a decision yet about hospice and patient is unable to at this time. The family does not have any MDPOA paperwork on file though they stated is patient's MDPOA. Patient's is in denial about the serious nature of his condition. [facility] will check back in with her late tomorrow afternoon. They can place him in their inpatient center since he is in need of pain control managment. CM will need to get a proxy named tomorrow if the does not have the MDPOA paperwork. Patient's and/or proxy will need to make a decision about hospice services to move forward with a d/c plan. CM will follow. Date Signed: 08/12/2018 04:37 PM Electronically Signed By:Bonnie Vazquez LCSW
[2018-08-12] MEDS ORDERED: GADOBUTROL 10 ML VIAL IVP ONE (20:49)
[2018-08-12] MEDS: MELATONIN 3 MG TAB PO SCH (21:39)
[2018-08-13] MEDS: PIPERACILLIN/TAZO 4.5 GM/DEX 100 ML IV SCH ×4 (01:23→18:36)
[2018-08-13] MEDS: GABAPENTIN 300 MG CAP PO SCH ×3 (05:29→22:37)
[2018-08-13] MEDS: METHADONE HCL 10 MG TAB PO SCH ×3 (05:29→22:37)
[2018-08-13] MEDS: LEVOTHYROXINE 25 MCG TAB PO SCH (05:29)
[2018-08-13 05:48] LABS: PLATELET COUNT 307 10^3/uL (150-400)
[2018-08-13] MEDS ORDERED: NS 500 ML IV ONE (06:26)
--- NOTE | 2018-08-13 06:54 | PDANEPAE ---
ANE History of Present Illness 53 yo for I&D lower leg ANE Past Medical History - Cardiovascular History Hx Hypertension: Yes Hx Arrhythmias: No Hx Chest Pain: No Hx Coronary Artery / Peripheral Vascular Disease: No Hx CHF / Valvular Disease: No Hx Palpitations: No - Pulmonary History Hx COPD: No Hx Asthma/Reactive Airway Disease: No Hx Recent Upper Respiratory Infection: No Hx Oxygen in Use at Home: No Hx Sleep Apnea: Yes Sleep Apnea Screening Result - Last Documented: Positive Pulmonary History Comment: FABIAN UNABLE TO TOLERATE C-PAP. SLEEPS IN A CHAIR - Neurologic History Hx Cerebrovascular Accident: No Hx Seizures: No Hx Dementia: No - Endocrine History Hx Diabetes: No Endocrine History Comment: SIDE EFFECT OF CHEMO TAKES. INSULIN AND PO RX - Renal History Hx Renal Disorders: Yes Renal History Comment: left nephrostomy FOR CA - Liver History Hx Hepatic Disorders: No - Neurological & Psychiatric Hx Hx Neurological and Psychiatric Disorders: No - Cancer History Hx Cancer: Yes Cancer History Comment: Renal CA - Congenital Disorder History Hx Congenital Disorders: No - GI History Hx Gastrointestinal Disorders: Yes Gastrointestinal History Comment: 18 inches of small intestine removed after renal cancer it was negative for cancer - Chronic Pain History Chronic Pain: Yes (RELATED TO CA) - Surgical History Prior Surgeries: splenectomy. L3 Laminectomy S. Small intestine surgery after LT nephrectomy 07/2012. COLONOSCOPY 02/2015 ANE Review of Systems Review of Systems: ANE Patient History - Allergies Allergies/Adverse Reactions: lisinopril Allergy (Verified 08/03/18 17:32) - Home Medications Home medications: home medication list seen and reviewed Home Medications: Levothyroxine [Synthroid 25 mcg (*)] 25 mcg PO DAILY06 01/17/18 [Last Taken ] Methadone HCl [Methadone 5 mg (*)] 20 mg PO ,,01/17/18 [Last Taken am dose] FLUoxetine [Prozac 20 MG (*)] 20 mg PO DAILY 04/22/18 [Last Taken 08/08/18] celeCOXIB [Celebrex (*)] 200 mg PO BID 05/06/18 [Last Taken 08/08/18 am dose only] Acetaminophen [Tylenol ES 500 mg (*)] 1,000 mg PO BID 08/03/18 [Last Taken 08/07] Gabapentin [Neurontin 300 MG (*)] 300 mg PO TID@,,08/03/18 [Last Taken 06:00] Insulin Glargine [Lantus] 50 unit SC DAILY 08/05/18 [Last Taken 08/07/18] Oxymorphone HCl [Opana] 80 mg PO TID@,,08/08/18 [Last Taken 08/08/18 one dose only] metFORMIN HCL [Glucophage 500 mg (*)] 500 mg PO BIDMEAL 08/08/18 [Last Taken am dose] - NPO status NPO Status: no food or drink >8 hours NPO Since - Liquids (Date): 08/13/18 NPO Since - Liquids (Time): 00:00 NPO Since - Solids (Date): 08/13/18 NPO Since - Solids (Time): 00:00 - Anes Hx Anes Hx: no prior problems - Smoking Hx Smoking Status: Former smoker ANE Labs/Vital Signs - Labs Result Diagrams: 08/13/18 04:49 08/13/18 04:49 - Vital Signs Blood Pressure: 118/60 Heart Rate: 91 Respiratory Rate: 16 O2 Sat (%): 93 Height: 6 ft Weight: 138.2 kg ANE Physical Exam - Airway Neck exam: FROM Mallampati Score: Class 2 - Pulmonary Pulmonary: no respiratory distress - Cardiovascular Cardiovascular: regular rate and rhythym - ASA Status ASA Status: III ANE Anesthesia Plan Anesthesia Plan: GA w LMA
[2018-08-13] MEDS: BUPIVACAINE 0.5% 30 ML SDV ONE ×2 (07:00→08:26)
[2018-08-13] MEDS ORDERED: PROPOFOL/EMULSION 500 MG/50 ML BOTTLE IV ONE (07:09)
[2018-08-13] MEDS ORDERED: fentaNYL 100 MCG/2 ML INJ IVP PRN (07:51)
[2018-08-13] MEDS ORDERED: ONDANSETRON 4 MG/2 ML VIAL IVP PRN (07:51)
[2018-08-13] MEDS ORDERED: NALOXONE HCL 0.4 MG/ML INJ IVP PRN (07:51)
[2018-08-13] MEDS ORDERED: INSULIN GLARGINE 100 UNITS/ML UNIT SC SCH (09:00)
--- NOTE | 2018-08-13 09:03 | POSTOPPROG ---
Post Op Note Date of Operation: 08/13/18 Surgeon: Rich Chambers Office Equipment Mechanic: Yessenia Mckeon Anesthesiologist: Chaitanya Ochoa Anesthesia: GET(General Endotracheal) Pre-op Diagnosis: Cellulitis, venous insufficiency ulcers Post-op Diagnosis: same with multiple medial calf abscesses Procedure: LLE I&D, debridment, washout, and B UNNA boot placement Findings: gross purulence, debridedment to viable bleeding tissue Inf/Abcess present in the surg proc area at time of surgery?: Yes Depth: Deep Incisional (Fascial) EBL: 50-100 Complications: none Specimen(s): tissue and swab sent for culture
[2018-08-13] MEDS ORDERED: HYDROmorphONE/DILAUDID 2 MG/ML INJ ONE (09:20)
[2018-08-13] MEDS ORDERED: fentaNYL 100 MCG/2 ML INJ ONE (09:21)
[2018-08-13] MEDS: FUROSEMIDE 40 MG/4 ML VIAL IVP SCH ×2 (09:56→15:21)
[2018-08-13] MEDS: INSULIN GLARGINE 100 UNITS/ML UNIT SC SCH (09:56)
[2018-08-13] MEDS: FLUoxetine 20 MG CAP PO SCH (09:57)
--- NOTE | 2018-08-13 10:53 | POSTANESTH ---
Post Anesthetic Evaluation Cardiovascular Status: Normal, Stable Respiratory Status: Similar to Pre-op Cond. Level of Consciousness/Mental Status: Moderately Sleepy Pain Control: Adequate, Prn Tx Ordered Nausea/Vomiting Control: Adequate, Prn Tx Ordered Complications Possibly Related to Anesthesia: None Noted
--- NOTE | 2018-08-13 11:07 | GOP ---
DATE OF OPERATION: 08/13/2018 SURGEON: Rich Chambers MD WASH OPERATOR: WENDY Deleon. ANESTHESIOLOGIST: Bonnie Ochoa MD. PREOPERATIVE DIAGNOSIS: Cellulitis, left leg, and ulcerations, right leg. POSTOPERATIVE DIAGNOSIS: Extensive left leg subcutaneous abscesses and necrotizing fasciitis with cellulitis. PROCEDURE PERFORMED: Left leg excisional debridement over 20 centimeters squared with I and D of multiple abscesses with excisional debridement. Bilateral Unna boot dressings FINDINGS: The patient was found to have minimal change on the right leg. On the left leg, he was found to have multiple superficial ulcerations requiring debridement but also was found to have at least 3 large subcutaneous abscess collections on the anterolateral, anteromedial, and posterior surfaces with a large amount of necrotic purulent material, which was sent for culture. ESTIMATED BLOOD LOSS: Less than 25 cc. DESCRIPTION OF PROCEDURE: The patient was taken to the operating room where he received a satisfactory general endotracheal anesthesia by Dr. Ochoa, placed in the supine position, and prepped and draped in the usual sterile fashion. The legs were elevated up and multiple superficial ulcerated areas were sharply debrided with tangential excision of necrotic material. However, 3 other areas of deep abscess were encountered. These were splayed open and radically debrided of all necrotic material. The wounds were copiously irrigated and then packed with fine mesh gauze and then dressed with the unna boot and Isidoro wraps for compression. He tolerated the procedure quite well. He was taken to the recovery room in good condition. There were no complications. ADDENDUM: On the right leg, wounds were superficially debrided and then dressed with an Unna boot as well. Copy requested to: Dr.. Moore /[id number]/MODL MTDD
--- NOTE | 2018-08-13 12:08 | PCMIDPN ---
Assessment/Plan: # Sepsis with L>R lower extremity cellulitis:Extensive purulence seen L calf in OR today. More awake this afternoon. --continue IV high dose zosyn; noted Cr is trending up, continue to check daily. Add on LFTs in light of high dose B lactam therapy --follow surgical cultures --elevated LE as feasible meds zosyn 4.5gm IV [id number] #5 Microbiology 08/09/18 Leg - Swab Pseudomonas Aeruginosa 08/08/18 Leg - Swab Pseudomonas Aeruginosa; Klebsiella Variicola 08/08/18 Blood Cx (2) NGTD 08/13/18 OR CX: gram stain neg for organisms Subjective: patient still c/o of L leg pain - but slightly better was able to eat solid food today for first time in a couple days Objective: Vital Signs Temp Pulse Resp BP Pulse Ox 36.4 C 100 16 151/76 H 91 L 08/13/18 09:42 08/13/18 09:42 08/13/18 09:42 08/13/18 09:42 08/13/18 09:42 Microbiology 08/13/18 07:51 Gram Stain - Final Leg - Eswab 08/13/18 07:51 Gram Stain - Final Leg - Tissue Laboratory Results 08/13/18 04:49 08/13/18 04:49 08/12/18 08/13/18 08/14/18 05:59 05:59 05:59 Intake Total 385 1075 500 Output Total 2024 1200 50 Balance -1640 -125 450 - Physical Exam General Appearance: alert, no apparent distress EENT: dry mucous membranes, No thrush Respiratory: other (decreased base B), No accessory muscle use Cardiac/Chest: tachycardia Extremities: pedal edema (L>R ), other (post op dressing in place B ; patient able to move feet bilaterally, some wrinkling skin of toes B) Male Genitalia: cortez Skin: No rash Neuro/Psych: other (still sleepy but answering questions mostly appropriately) - Line/s PIV Lines: other (R forearm), No drainage, No erythema - Time Spent With Patient Time Spent with Patient: greater than 35 minutes (reviewed plan of care and surgical findings w patient's at bedside) Time Spent with Patient: Greater than 35 minutes spent on this patients care, greater than 50% of time spent counseling, educating, and coordinating care regarding the above mentioned plan. ICD10 Worksheet Patient Problems: Problems Problem Status Onset Septic shock Acute Fever Acute Pain management Acute Renal cell carcinoma Acute Severe low back pain Acute
--- NOTE | 2018-08-13 16:44 | HOSPPROG ---
Hospitalist Progress Note Assessment/Plan: #Severe sepsis 2/2 severe b/l LE cellulitis with multiple abscesses. Klebsiella/ Pseudomonas on culture. -cont zosyn per ID -operative debridement today with several deep abscesses encountered with lg amt of necrotic purulence, Cx pending -LE infection may be hard to completely resolve with obstructing RP mass #Lymphedema: obstructive RP mass is contributing. -s/p 5 days aggressive IV lasix dosing, change to oral Lasix today #Metastatic RCC: Recent CT showed increasing size of RP mass and osseous mets, on 5th line therapy which is currently held, followed by Dr. Oakley. Initially poor pain control, which is improved. -Opana was d/c'd on admission, methadone was up-titrated, cont prn oxy, IV dilaudid -discussed with Dr. Plata, oncology, likely needs hospice #Toxic / metabolic encephalopathy: infection + opioids. MRI neg for brain mets -monitor mentation with need for increased opiates #Leukocytosis: trending down with tx of infection #Lactic acidosis: elevated for past month. Improved some with IVFs #BL LE DVT: Resume Lovenox tonight, may need to hold again Fri am if he returns to OR #DM 2: Halved glargine given bg 54 this am and decreased intake. -up-titrate insulin if intake improves #Diet: ADAT #DVT ppx: Lovenox Disp: cont inpt. Goals of care: He is DNR. I discussed difficult situation with . Poor functional status makes it unlikely he can resume chemo and he unfortunately has progressive disease despite 5th line chemo. Oncology feels hospice is appropriate. Beryl is coming to terms with this. They are not ready to make a decision now, would like to get through this episode of infection and see if his functional status improves. Hospice has consulted and is following. Subjective: Pt is sleeping, at bedside. He woke up and had some conversation post-operatively, at a little. Now resting comfortably. Pain control seems better. No fevers. Objective: Vital Signs Temp Pulse Resp BP Pulse Ox 36.4 C 88 14 137/76 H 94 08/13/18 12:00 08/13/18 15:44 08/13/18 15:44 08/13/18 15:44 08/13/18 15:44 Microbiology 08/13/18 07:51 Gram Stain - Final Leg - Eswab 08/13/18 07:51 Gram Stain - Final Leg - Tissue Laboratory Results 08/13/18 04:49 08/13/18 04:49 08/12/18 08/13/18 08/14/18 05:59 05:59 05:59 Intake Total 385 1075 500 Output Total 2024 1200 50 Balance -1640 -125 450 - Physical Exam Constitutional: no apparent distress Eyes: PERRL Ears, Nose, Mouth, Throat: moist mucous membranes Cardiovascular: regular rate and rhythym Respiratory: no respiratory distress, clear to auscultation Gastrointestinal: normoactive bowel sounds, soft, non-tender abdomen Skin: warm Musculoskeletal: generalized weakness, other (b/l LE's wrapped in unna boots after operative debridement. Dressings were not removed.) Psychiatric: encephalopathic ICD10 Worksheet Patient Problems: Problems Problem Status Onset Septic shock Acute Fever Acute Pain management Acute Renal cell carcinoma Acute Severe low back pain Acute
[2018-08-13] MEDS: ENOXAPARIN 150 MG/ML SYR SC SCH (22:37)
[2018-08-13] MEDS: MELATONIN 3 MG TAB PO SCH (22:37)
[2018-08-14] MEDS: PIPERACILLIN/TAZO 4.5 GM/DEX 100 ML IV SCH ×4 (00:09→17:56)
[2018-08-14 05:13] LABS: PLATELET COUNT 288 10^3/uL (150-400)
[2018-08-14] MEDS: GABAPENTIN 300 MG CAP PO SCH ×3 (05:53→20:40)
[2018-08-14] MEDS: LEVOTHYROXINE 25 MCG TAB PO SCH (05:53)
[2018-08-14] MEDS: METHADONE HCL 10 MG TAB PO SCH ×3 (05:53→20:42)
--- NOTE | 2018-08-14 08:28 | SOAPPROG ---
SOAP Progress Note Assessment/Plan: Assessment: 53 Y M hx metastatic renal cell CA, cellulitis, sepsis S/p BLE I&D- large amount of purulent drainage found. POD #1 S: Nonverbal. Per RN, pt was alert and talkative last night O: Somnolent, not arousable Afebrile No increased WOB WBC up to 20 today, likely from surgery yesterday BLE dressings intact Plan: OR tomorrow for further debridement and dressing change. 08/14/18 08:20 Objective: Vital Signs Temp Pulse Resp BP Pulse Ox 36.6 C 73 16 109/57 L 95 08/14/18 07:48 08/14/18 07:48 08/14/18 07:48 08/14/18 07:48 08/14/18 07:48 Microbiology 08/13/18 07:51 Gram Stain - Final Leg - Eswab 08/13/18 07:51 Gram Stain - Final Leg - Tissue Laboratory Results 08/14/18 04:52 08/13/18 04:49 08/13/18 08/14/18 08/15/18 05:59 05:59 05:59 Intake Total 1075 800 Output Total 1200 1750 Balance -125 -950 ICD10 Worksheet Patient Problems: Problems Problem Status Onset Septic shock Acute Fever Acute Pain management Acute Renal cell carcinoma Acute Severe low back pain Acute
[2018-08-14] MEDS: ENOXAPARIN 150 MG/ML SYR SC SCH (09:13)
[2018-08-14] MEDS: FUROSEMIDE 40 MG TAB PO SCH (09:15)
[2018-08-14] MEDS: FLUoxetine 20 MG CAP PO SCH (09:16)
[2018-08-14] MEDS: INSULIN GLARGINE 100 UNITS/ML UNIT SC SCH (09:18)
--- NOTE | 2018-08-14 09:42 | HOSPPROG ---
Hospitalist Progress Note Assessment/Plan: The patient is a 53-year-old male with PMH metastatic renal cell carcinoma who was admitted for acute sepsis secondary to infected wound/cellulitis on bilateral lower extremities, status post incision and drainage. This patient is new to me. Reviewed patient's chart/records for this visit. ASSESSMENT/PLAN: Severe sepsis B/l cellulitis/abscesses/infected wounds, s/p I&D Lymphedema Bilat LE DVT -Cx (+) for pseudomonas/klebsiella w/ resistance to PCN. -ID recs appreciated - on IV Zosyn. -Surg recs appreciated - plans to debride ad change Unna boots in OR tomorrow. -large RP mass (cancer) contributing to impaired lymph drainage from LE. -Lasix -Check AM labs -PICC line as lab was unable to access veins today for lab draw Toxic metabolic encephalopathy Delirium -Pt confused since admission. St IV RCC w/ mets to bone Chronic pain, 2/2 cancer Lactic acidosis -on 5th line Tx w/ Dr. Encinas -Consider palliative consult if is open to it - to discuss goals of care. Pt is hospice appropriate. Hospice appt scheduled for Sat AM. -on methadone scheduled w/ prn oxycodone and IV Dilaudid. Hold prns for somnolence. -MRI negative for brain metastases. DM, type 2 Hypoglycemia, resolved -monitor BG, adjust insulin. VTE prophylaxis: Lovenox Code Status: DNR Status: Inpatient for greater than 2 midnight stay. Disposition: Med surg ____ SUBJECTIVE: This morning patient is confused. He says no one has been talking to him. OBJECTIVE: Physical Exam: General: The patient is a male who is somnolent and in mild acute distress. HEENT: normocephalic, extraocular movements intact, conjunctivae clear. Mucous membranes moist. Neck: trachea midline, no visible masses. CV: +S1/S2, RRR, no MRG. Resp: unlabored, CTAB no RRW. Abd: soft and nondistended. Musculoskeletal: Normal muscle tone/bulk. Bilateral lower extremities in Unna boot dressings, soiled w/ SS/bloody fluid. Neuro: cranial nerves II XII grossly intact. Intact gross motor and sensory function. Psych: Anxious, tearful. Skin: +mild pallor. No jaundice. Heme/lymph: +peripheral edema b/l LE - unable to assess degree w/ dressings. Labs/Imaging/Other Tests: Personally reviewed/interpreted. Brain MRI - No evidence for intracranial metastasis. Objective: Vital Signs Temp Pulse Resp BP Pulse Ox 36.6 C 73 16 109/57 L 95 08/14/18 07:48 08/14/18 07:48 08/14/18 07:48 08/14/18 07:48 08/14/18 07:48 Microbiology 08/13/18 07:51 Gram Stain - Final Leg - Eswab 08/13/18 07:51 Gram Stain - Final Leg - Tissue Laboratory Results 08/14/18 04:52 08/13/18 04:49 08/13/18 08/14/18 08/15/18 05:59 05:59 05:59 Intake Total 1075 800 Output Total 1200 1750 Balance -125 -950 - Time Spent With Patient Time Spent with Patient: greater than 35 minutes Time Spent with Patient: Greater than 35 minutes spent on this patients care, greater than 50% of time spent counseling, educating, and coordinating care regarding the above mentioned plan. ICD10 Worksheet Patient Problems: Problems Problem Status Onset Septic shock Acute Fever Acute Pain management Acute Renal cell carcinoma Acute Severe low back pain Acute
[2018-08-14] MEDS ORDERED: ALTEPLASE 2 MG VIAL IVP PRN (11:45)
--- NOTE | 2018-08-14 14:49 | ASMTCMCOM ---
CM Note CM Note Notes: Spoke w/Suzette from [facility] hospice, notified her that pt was to have a second debridement of leg on Saturday. She has arranged for behavioral analyst to meet with on Saturday at 10am. DC Plan: TBD Date Signed: 08/14/2018 02:48 PM Electronically Signed By:Mi Mccullough RN
--- NOTE | 2018-08-14 15:16 | PCMIDPN ---
Assessment/Plan: Assessment/Plan: * Sepsis with bilateral lower extremity cellulitis/calf abscess/fasciitis status post incision and drainage: Operative culture showing growth of lactose fermenting and non lactose fermenting gram-negative rods likely which will represent Klebsiella and Pseudomonas respectively. Plans for operative debridement/reassessment in OR tomorrow. Continue Zosyn in interim as prior isolates were susceptible to Zosyn. Follow up susceptibilities on pending cultures to ensure no evolution of resistance although feel this should be unlikely in this short period of time. * Leukocytosis: Chronic in nature with likely multifactorial etiology including infection as well as underlying metastatic renal cell cancer. Increased today although not significantly changed from overall trend previously. May also have component related to recent surgical debridement. * Increased creatinine: Creatinine increased to 1.3 yesterday. Will repeat today to ensure no further increase as Zosyn can be associated with AIN. 08/14/18 15:13 08/14/18 15:18 Subjective: Patient is somnolent and not arousable. Objective: Vital Signs Temp Pulse Resp BP Pulse Ox 36.3 C 78 16 130/58 H 96 08/14/18 11:26 08/14/18 11:26 08/14/18 11:26 08/14/18 11:26 08/14/18 11:26 Microbiology 08/13/18 07:51 Gram Stain - Final Leg - Eswab 08/13/18 07:51 Gram Stain - Final Leg - Tissue Laboratory Results 08/14/18 04:52 08/14/18 13:22 08/13/18 08/14/18 08/15/18 05:59 05:59 05:59 Intake Total 1075 800 Output Total 1200 1750 550 Balance -125 -950 -550 Zosyn # 6 - Physical Exam General Appearance: non-toxic, other (Somnolent and not arousable (nursing staff notes has periods where he is awake)) EENT: No scleral icterus, No conjunctival petechiae Respiratory: lungs clear, No respiratory distress Cardiac/Chest: regular rate, rhythm Extremities: other (Dressed postoperatively; no pain with elevation of left lower extremity) Abdomen: non-tender, No distended ICD10 Worksheet Patient Problems: Problems Problem Status Onset Septic shock Acute Fever Acute Pain management Acute Renal cell carcinoma Acute Severe low back pain Acute
--- NOTE | 2018-08-14 17:01 | SOAPPROG ---
SOAP Progress Note Assessment/Plan: Assessment/Plan: 53 yo gentleman w stage IV RCC admitted w bilateral LE cellulitis, LLE>R and LLE DVT 1. cellulitis/fasciitis- micro w klebsiella and pseudomonas on zosyn appreciate ID and wound care/gen surgery will be ongoing problem w lymphedema caused by renal mass POD #1 I&D w debridement (Dr Chambers); apparently will have more debridement tomorrow 2. LLE DVT - on full dose AC; no bleeding 3. Stage 4 RCC - cabozantinib on hold 5th line therapy also exposed to IO without response limited options going forward hospice consult appropriate today MRI brain shows NO mets 4. Pain - transition to methadone 5. Leukocytosis - likely from infection/malignancy 6. Goals of care - ongoing discussion Subjective: Pt asleep Objective: Vital Signs Temp Pulse Resp BP Pulse Ox 36.4 C 68 18 107/56 L 96 08/14/18 16:00 08/14/18 16:00 08/14/18 16:00 08/14/18 16:00 08/14/18 16:00 Microbiology 08/13/18 07:51 Gram Stain - Final Leg - Eswab 08/13/18 07:51 Gram Stain - Final Leg - Tissue Laboratory Results 08/14/18 04:52 08/14/18 13:22 08/13/18 08/14/18 08/15/18 05:59 05:59 05:59 Intake Total 1075 800 Output Total 1200 1750 550 Balance -125 -950 -550 Not examined wounds bandaged asleep ICD10 Worksheet Patient Problems: Problems Problem Status Onset Septic shock Acute Fever Acute Pain management Acute Renal cell carcinoma Acute Severe low back pain Acute
[2018-08-14] MEDS: MELATONIN 3 MG TAB PO SCH (20:41)
[2018-08-15] MEDS: PIPERACILLIN/TAZO 4.5 GM/DEX 100 ML IV SCH ×4 (00:14→17:53)
[2018-08-15 05:09] LABS: PLATELET COUNT 275 10^3/uL (150-400)
[2018-08-15] MEDS: LEVOTHYROXINE 25 MCG TAB PO SCH (06:18)
[2018-08-15] MEDS: GABAPENTIN 300 MG CAP PO SCH ×3 (06:18→20:32)
[2018-08-15] MEDS: METHADONE HCL 10 MG TAB PO SCH ×3 (06:18→20:32)
[2018-08-15] MEDS: INSULIN GLARGINE 100 UNITS/ML UNIT SC SCH (08:16)
[2018-08-15] MEDS: FUROSEMIDE 40 MG TAB PO SCH (08:22)
[2018-08-15] MEDS: FLUoxetine 20 MG CAP PO SCH (08:22)
--- NOTE | 2018-08-15 08:53 | PDANEPAE ---
ANE History of Present Illness 53 with leg abscess ANE Past Medical History - Cardiovascular History Hx Hypertension: Yes Hx Arrhythmias: No Hx Chest Pain: No Hx Coronary Artery / Peripheral Vascular Disease: No Hx CHF / Valvular Disease: No Hx Palpitations: No - Pulmonary History Hx COPD: No Hx Asthma/Reactive Airway Disease: No Hx Recent Upper Respiratory Infection: No Hx Oxygen in Use at Home: No Hx Sleep Apnea: Yes Sleep Apnea Screening Result - Last Documented: Positive Pulmonary History Comment: FABIAN UNABLE TO TOLERATE C-PAP. SLEEPS IN A CHAIR - Neurologic History Hx Cerebrovascular Accident: No Hx Seizures: No Hx Dementia: No - Endocrine History Hx Diabetes: No Hypothyroid: No Hyperthyroid: No Obesity: yes, severe Endocrine History Comment: SIDE EFFECT OF CHEMO TAKES. INSULIN AND PO RX - Renal History Hx Renal Disorders: Yes Renal History Comment: left nephrostomy FOR CA - Liver History Hx Hepatic Disorders: No - Neurological & Psychiatric Hx Hx Neurological and Psychiatric Disorders: No - Cancer History Hx Cancer: Yes Cancer History Comment: Renal CA - Congenital Disorder History Hx Congenital Disorders: No - GI History GERD: no Hx Gastrointestinal Disorders: Yes Gastrointestinal History Comment: 18 inches of small intestine removed after renal cancer it was negative for cancer - Chronic Pain History Chronic Pain: Yes (RELATED TO CA) - Surgical History Prior Surgeries: splenectomy. L3 Laminectomy S. Small intestine surgery after LT nephrectomy 07/2012. COLONOSCOPY 02/2015 ANE Review of Systems Review of systems is: negative Review of Systems: - Exercise capacity Exercise capacity: <4 METS ANE Patient History - Allergies Allergies/Adverse Reactions: lisinopril Allergy (Verified 08/03/18 17:32) - Home Medications Home medications: home medication list seen and reviewed Home Medications: Levothyroxine [Synthroid 25 mcg (*)] 25 mcg PO DAILY06 01/17/18 [Last Taken ] Methadone HCl [Methadone 5 mg (*)] 20 mg PO 06,14,01/17/18 [Last Taken am dose] FLUoxetine [Prozac 20 MG (*)] 20 mg PO DAILY 04/22/18 [Last Taken 08/08/18] celeCOXIB [Celebrex (*)] 200 mg PO BID 05/06/18 [Last Taken 08/08/18 am dose only] Acetaminophen [Tylenol ES 500 mg (*)] 1,000 mg PO BID 08/03/18 [Last Taken 08/07] Gabapentin [Neurontin 300 MG (*)] 300 mg PO TID@,,08/03/18 [Last Taken 06:00] Insulin Glargine [Lantus] 50 unit SC DAILY 08/05/18 [Last Taken 08/07/18] Oxymorphone HCl [Opana] 80 mg PO TID@,,08/08/18 [Last Taken 08/08/18 one dose only] metFORMIN HCL [Glucophage 500 mg (*)] 500 mg PO BIDMEAL 08/08/18 [Last Taken am dose] - NPO status NPO Status: no food or drink >8 hours NPO Since - Liquids (Date): 08/15/18 NPO Since - Liquids (Time): 00:00 NPO Since - Solids (Date): 08/15/18 NPO Since - Solids (Time): 00:00 - Anes Hx Anes Hx: no prior problems - Smoking Hx Smoking Status: Former smoker - Alcohol Use Alcohol Use: None - Family Anes Hx Family Anes Hx: none ANE Labs/Vital Signs - Labs Result Diagrams: 08/15/18 04:45 08/15/18 04:45 - Vital Signs Blood Pressure: 161/79 Heart Rate: 84 Respiratory Rate: 8 O2 Sat (%): 97 Height: 182.88 cm Weight: 138.2 kg ANE Physical Exam - Airway Neck exam: FROM Mallampati Score: Class 3 Mouth exam: normal dental/mouth exam - Pulmonary Pulmonary: no respiratory distress, clear to auscultation - Cardiovascular Cardiovascular: regular rate and rhythym, no murmur, rub, or gallop - ASA Status ASA Status: IV ANE Anesthesia Plan Anesthesia Plan: general endotracheal anesthesia
[2018-08-15] MEDS ORDERED: PROPOFOL 200 MG/20 ML VIAL ONE (09:19)
[2018-08-15] MEDS ORDERED: fentaNYL 100 MCG/2 ML INJ ONE (09:19)
[2018-08-15] MEDS ORDERED: BUPIVACAINE 0.5% 30 ML SDV ONE (09:23)
[2018-08-15] MEDS ORDERED: POLYMYXIN B SULFATE 500,000 UNIT/10 ML SYR IRR ONE (09:29)
[2018-08-15] MEDS ORDERED: BACITRACIN 50,000 UNITS/10 ML SYR IRR ONE (09:29)
[2018-08-15] MEDS ORDERED: CALAMINE/ZINC OXIDE 1 EA BANDAGE (UNNA BOOT) TP ONE (09:30)
[2018-08-15] MEDS ORDERED: NS 1,000 ML IV ONE (09:36)
[2018-08-15] MEDS ORDERED: PROMETHAZINE HCL 25 MG/ML INJ IVP PRN (10:07)
[2018-08-15] MEDS ORDERED: NALOXONE HCL 0.4 MG/ML INJ IVP PRN (10:07)
[2018-08-15] MEDS ORDERED: HYDROmorphONE/DILAUDID 2 MG/ML INJ IVP PRN (10:07)
[2018-08-15] MEDS ORDERED: fentaNYL 100 MCG/2 ML INJ IVP PRN (10:07)
--- NOTE | 2018-08-15 10:07 | POSTANESTH ---
Post Anesthetic Evaluation Cardiovascular Status: Normal, Stable Respiratory Status: Normal, Stable Level of Consciousness/Mental Status: Can Participate in Eval, Moderately Sleepy Pain Control: Adequate, Prn Tx Ordered Nausea/Vomiting Control: Adequate, Prn Tx Ordered Complications Possibly Related to Anesthesia: None Noted
[2018-08-15] MEDS ORDERED: ONDANSETRON 4 MG/2 ML VIAL ONE (10:20)
--- NOTE | 2018-08-15 11:11 | ASMTCMCOM ---
CM Note CM Note Notes: CM went to pt's room to speak to pt and his . Pt in surgery for leg wounds. CM will attempt to visit with pt and his later in day. [facility] to meet with pt and his Saturday. D/C Plan: TBD Date Signed: 08/15/2018 11:10 AM Electronically Signed By:Yaima Eisenberg
--- NOTE | 2018-08-15 11:59 | POSTOPPROG ---
Post Op Note Date of Operation: 08/15/18 Surgeon: Rich Chambers Brine Purifier: Keri Anesthesiologist: Noemi Anesthesia: GET(General Endotracheal) Pre-op Diagnosis: LLE cellulitis, abscesses Post-op Diagnosis: same Indication: same Procedure: LLE I&D, unna boot application Findings: Relatively clean wounds. 2-3 new abscesses found and I&Ded Inf/Abcess present in the surg proc area at time of surgery?: Yes Depth: Deep Incisional (Fascial) EBL: Minimal
--- NOTE | 2018-08-15 14:07 | SOAPPROG ---
SOAP Progress Note Assessment/Plan: Assessment/Plan: 53 yo gentleman w stage IV RCC admitted w bilateral LE cellulitis, LLE>R and LLE DVT 1. cellulitis/fasciitis- micro w klebsiella and pseudomonas on zosyn appreciate ID and wound care/gen surgery will be ongoing problem w lymphedema caused by renal mass POD #2 from first I&D w debridement (Dr Chambers); went back to OR today 2. LLE DVT - on full dose AC; no bleeding 3. Stage 4 RCC - cabozantinib on hold 5th line therapy also exposed to IO without response limited options going forward hospice consult appropriate MRI brain shows NO mets 4. Pain - transitioning to methadone 5. Leukocytosis - likely from infection/malignancy 6. Goals of care - ongoing discussion 7. anemia - multifactorial, monitor 08/15/18 14:05 08/15/18 14:06 Subjective: Pt asleep and not very arousable Objective: Vital Signs Temp Pulse Resp BP Pulse Ox 36.5 C 94 12 153/82 H 98 08/15/18 13:03 08/15/18 13:03 08/15/18 13:03 08/15/18 13:03 08/15/18 13:03 Microbiology 08/13/18 07:51 Gram Stain - Final Leg - Eswab 08/13/18 07:51 Gram Stain - Final Leg - Tissue Laboratory Results 08/15/18 04:45 08/15/18 04:45 08/14/18 08/15/18 08/16/18 05:59 05:59 05:59 Intake Total 800 365 Output Total 1750 950 305 Balance -950 -950 60 Gen - asleep CV - RRR Abd - BS+ Ext - bilateral bandages ICD10 Worksheet Patient Problems: Problems Problem Status Onset Septic shock Acute Fever Acute Pain management Acute Renal cell carcinoma Acute Severe low back pain Acute
--- NOTE | 2018-08-15 15:26 | HOSPPROG ---
Hospitalist Progress Note Assessment/Plan: The patient is a 53-year-old male with PMH metastatic renal cell carcinoma who was admitted for acute sepsis secondary to infected wound/cellulitis on bilateral lower extremities, status post incision and drainage. ASSESSMENT/PLAN: Severe sepsis B/l cellulitis/abscesses/infected wounds, s/p I&D, s/p debridement Lymphedema Bilat LE DVT -Cx (+) for multiple paul. -ID recs appreciated - on IV Zosyn. -large RP mass (cancer) contributing to impaired lymph/venous drainage from LE. -Lasix -Check AM labs Toxic metabolic encephalopathy Delirium -Pt confused since admission. -Stable. -Consider Neuro rec if mentation does not improve. St IV RCC w/ mets to bone Chronic pain, 2/2 cancer Lactic acidosis, improved -on 5th line Tx w/ Dr. Encinas -Pt is hospice appropriate. Palliative/Hospice appt scheduled for Sat AM. They have met with several times already. -on methadone scheduled w/ prn oxycodone and IV Dilaudid. Hold prns for somnolence. -MRI negative for brain metastases. DM, type 2 Hypoglycemia, resolved -monitor BG. Increased insulin cautiously today since pt is hyperglycemic w/ poor po intake. VTE prophylaxis: Lovenox Code Status: DNR Status: Inpatient for greater than 2 midnight stay. Disposition: Med surg ____ SUBJECTIVE: Saw pt this afternoon after surgery. Talked w/ , who said he was very confused postop but has since settled down and is now asleep. OBJECTIVE: Physical Exam: General: The patient is a male who is sleeping and in NAD. HEENT: normocephalic. Neck: trachea midline, no visible masses. Resp: unlabored breathing. Abd: soft and nondistended. Musculoskeletal: Normal muscle tone/bulk. Bilateral lower extremities in dressings CDI. Skin: +mild pallor. No jaundice. Labs/Imaging/Other Tests: Personally reviewed/interpreted. Brain MRI - No evidence for intracranial metastasis. Objective: Vital Signs Temp Pulse Resp BP Pulse Ox 36.5 C 99 12 144/77 H 97 08/15/18 15:04 08/15/18 15:04 08/15/18 15:04 08/15/18 15:04 08/15/18 15:04 Microbiology 08/13/18 07:51 Gram Stain - Final Leg - Tissue 08/13/18 07:51 Gram Stain - Final Leg - Eswab Laboratory Results 08/15/18 04:45 08/15/18 04:45 08/14/18 08/15/18 08/16/18 05:59 05:59 05:59 Intake Total 800 365 Output Total 1750 950 305 Balance -950 -950 60 - Time Spent With Patient Time Spent with Patient: greater than 35 minutes Time Spent with Patient: Greater than 35 minutes spent on this patients care, greater than 50% of time spent counseling, educating, and coordinating care regarding the above mentioned plan. ICD10 Worksheet Patient Problems: Problems Problem Status Onset Septic shock Acute Fever Acute Pain management Acute Renal cell carcinoma Acute Severe low back pain Acute
--- NOTE | 2018-08-15 16:02 | PCMIDPN ---
Assessment/Plan: Assessment: Right lower extremity cellulitis and abscess secondary polymicrobial Gram negatives including Pseudomonas, Hafnia and Klebsiella. Covered by current ongoing Zosyn use. Had definitive clean out surgery earlier today. Will continue to follow his condition going forward. His underlying medical issues are negatively impacting as well. Plan: 1. Continue empiric IV Zosyn. 2. Follow appearance lower extremities. 3. Follow up on culture and sensitivity data of surgical isolates. 08/11/18 10:34 08/15/18 15:59 Subjective: Patient is resting in his hospital bed. He is quite somnolent. Occasionally says "I am very cold." He is currently getting infused with IV Zosyn directly from the refrigerator. is present in the room. Objective: Zosyn # 7 Vital Signs Temp Pulse Resp BP Pulse Ox 36.5 C 99 12 144/77 H 97 08/15/18 15:04 08/15/18 15:04 08/15/18 15:04 08/15/18 15:04 08/15/18 15:04 Microbiology 08/13/18 07:51 Gram Stain - Final Leg - Tissue 08/13/18 07:51 Gram Stain - Final Leg - Eswab Laboratory Results 08/15/18 04:45 08/15/18 04:45 08/14/18 08/15/18 08/16/18 05:59 05:59 05:59 Intake Total 800 365 Output Total 1750 950 305 Balance -950 -950 60 - Physical Exam General Appearance: WD/WN, no apparent distress, other (Somnolent), No alert Respiratory: lungs clear, normal breath sounds, No respiratory distress Cardiac/Chest: regular rate, rhythm, No tachycardia Extremities: No non-tender, No normal inspection Skin: normal color, warm/dry, No rash ICD10 Worksheet Patient Problems: Problems Problem Status Onset Septic shock Acute Fever Acute Pain management Acute Renal cell carcinoma Acute Severe low back pain Acute
[2018-08-15] MEDS: MELATONIN 3 MG TAB PO SCH (20:32)
[2018-08-16] MEDS: PIPERACILLIN/TAZO 4.5 GM/DEX 100 ML IV SCH ×4 (00:33→18:03)
[2018-08-16] MEDS: LEVOTHYROXINE 25 MCG TAB PO SCH ×3 (05:27→12:31)
[2018-08-16] MEDS: METHADONE HCL 10 MG TAB PO SCH ×4 (05:27→20:46)
[2018-08-16] MEDS: GABAPENTIN 300 MG CAP PO SCH ×6 (05:28→20:46)
[2018-08-16 07:05] LABS: PLATELET COUNT 268 10^3/uL (150-400)
[2018-08-16] MEDS: FUROSEMIDE 40 MG TAB PO SCH ×2 (08:37→12:30)
[2018-08-16] MEDS: FLUoxetine 20 MG CAP PO SCH ×2 (08:37→12:31)
--- NOTE | 2018-08-16 08:42 | SOAPPROG ---
SOAP Progress Note Assessment/Plan: Initialization Date: 08/15/18 14:04 SOAP Progress Note Assessment/Plan: Assessment/Plan: 53 yo gentleman w stage IV RCC admitted w bilateral LE cellulitis, LLE>R and LLE DVT 1. cellulitis/fasciitis- micro w klebsiella and pseudomonas on zosyn will be ongoing problem w lymphedema caused by renal mass POD #3 from first I&D w debridement (Dr Chambers); went back to OR yesterday. 2. LLE DVT - no anticoag at the moment, s/p surgery. ? if can resume..will discuss with hospitalist. 3. Stage 4 RCC - cabozantinib on hold 5th line therapy also exposed to IO without response limited options going forward hospice consult appropriate MRI brain shows NO mets 4. Pain - transitioning to methadone. 5. Delerium-multifactorial. no known brain mets. methadone dose being adjusted. 5. Leukocytosis - likely from infection/malignancy 6. Goals of care - ongoing discussion, hospice most appropriate. Patient is DNR. 7. anemia - multifactorial, monitor 08/16/18 08:43 08/16/18 08:47 Subjective: mumbling, notes pain in his legs, asks for pain meds, then falls asleep. Objective: Vital Signs Temp Pulse Resp BP Pulse Ox 36.1 C 113 H 18 118/75 91 L 08/16/18 08:00 08/16/18 08:00 08/16/18 08:00 08/16/18 08:00 08/16/18 08:00 Microbiology 08/13/18 07:51 Gram Stain - Final Leg - Tissue 08/13/18 07:51 Gram Stain - Final Leg - Eswab Laboratory Results 08/16/18 05:39 08/16/18 05:39 08/15/18 08/16/18 08/17/18 05:59 05:59 05:59 Intake Total 665 Output Total 950 905 Balance -950 -240 Physical Exam - Physical Exam General Appearance: obese, other (mumbling) Respiratory: lungs clear (anteriorly) Abdomen: soft Extremities: other (bandaged, some oozing from left leg per nursing) ICD10 Worksheet Patient Problems: Problems Problem Status Onset Septic shock Acute Fever Acute Pain management Acute Renal cell carcinoma Acute Severe low back pain Acute
[2018-08-16] MEDS: INSULIN GLARGINE 100 UNITS/ML UNIT SC SCH (11:07)
--- NOTE | 2018-08-16 11:11 | SOAPPROG ---
SOAP Progress Note Assessment/Plan: Assessment: MORE ALERT TODAY/AFEBRILE/SOME CONVERSATION AND COMPLAINS OF LEFT LEG PAIN WITH MOVEMENT DRESSINGS DRY AND INTACT AND CIRCULATION INTACT HEENT NONICTERIC/CHEST CLEAR/COR REGULAR RHYTHM/ABDOMEN SOFT/EXTREMITIES WITH EDEMA ON THE LEFT AND UNNA BOOT DRESSINGS BILATERALLY Plan: CHANGE DRESSINGS ON SATURDAY/CONTINUE ELEVATION/MAY BE ABLE TO RESTART ANTICOAGULATION 08/16/18 11:09 Objective: Vital Signs Temp Pulse Resp BP Pulse Ox 36.1 C 113 H 18 118/75 85 L 08/16/18 08:00 08/16/18 08:00 08/16/18 08:00 08/16/18 08:00 08/16/18 08:52 Microbiology 08/13/18 07:51 Gram Stain - Final Leg - Tissue 08/13/18 07:51 Gram Stain - Final Leg - Eswab Laboratory Results 08/16/18 05:39 08/16/18 05:39 08/15/18 08/16/18 08/17/18 05:59 05:59 05:59 Intake Total 665 Output Total 950 905 Balance -950 -240 ICD10 Worksheet Patient Problems: Problems Problem Status Onset Septic shock Acute Fever Acute Pain management Acute Renal cell carcinoma Acute Severe low back pain Acute
--- NOTE | 2018-08-16 12:35 | ASMTCMCOM ---
CM Note CM Note Notes: Lindsey from [facility] hospice to meet with pt's . Pt had wound debridement yesterday but continues to be somnolent. Per electric meter repairer, pt meets criteria for carecenter but pt's wishes to wait until Saturday to make any hospice decisions. She agrees to be proxy if need be, proxy form in front of chart. aware. DC Plan: TBD Date Signed: 08/16/2018 12:34 PM Electronically Signed By:Mi Mccullough RN
--- NOTE | 2018-08-16 13:13 | HOSPPROG ---
Hospitalist Progress Note Assessment/Plan: The patient is a 53-year-old male with PMH metastatic renal cell carcinoma who was admitted for acute sepsis secondary to infected wound/cellulitis on bilateral lower extremities, status post incision and drainage. # cellulitis with small abscess status post I&D and debridement likely from massive lymphedema from his renal cell carcinoma. * Continue IV antibiotics however long-term prognosis is poor * Discussed with ID currently on Zosyn * Appreciate General surgery # sepsis associated with cellulitis on admission, resolved # renal cell carcinoma with metastatic disease to the bone but negative MRI of the brain. Poor prognosis as he has failed previous treatments and has massive cancer burden in his abdomen causing bilateral lower extremity edema. Patient is a hospice candidate however is still hopeful that he will improve and is not willing to go with hospice at this time # delirium, patient confused since admission. He is talking more today per his 's report he is oriented to name and hospital only he was able to give me the names of his children and with prompting their ages. Unclear what his baseline will be but given this improvement today his would like to continue medical therapy * Continue IV antibiotics # type 2 diabetes # DVT noted 08/04, pt on Lovenox and held for proceedures. Discussed with surgery and Dr. Chambers plans on dressing change Saturday. Will resume Lovenox and surgery can hold on Saturday am if needed. VTE prophylaxis: Lovenox Code Status: DNR Status: Inpatient for greater than 2 midnight stay. Disposition: Med surg ____ Subjective: Patient new to me and chart reviewed. Patient is still confused but quite talkative. He wants to sit up in bed. Per he is more alert and talkative than yesterday complains of pain in his abdomen Objective: Vital Signs Temp Pulse Resp BP Pulse Ox 36.9 C 106 H 18 156/72 H 89 L 08/16/18 11:46 08/16/18 11:46 08/16/18 11:46 08/16/18 11:46 08/16/18 11:46 Microbiology 08/13/18 07:51 Gram Stain - Final Leg - Tissue 08/13/18 07:51 Gram Stain - Final Leg - Eswab Laboratory Results 08/16/18 05:39 08/16/18 05:39 11/30/18 12/01/18 12/02/18 05:59 05:59 05:59 Intake Total 665 Output Total 950 905 Balance -950 -240 - Physical Exam Constitutional: chronically ill appearing, uncomfortable Eyes: PERRL, EOMI Ears, Nose, Mouth, Throat: dry mucous membranes Cardiovascular: regular rate and rhythym Respiratory: no respiratory distress Gastrointestinal: tenderness, distension Skin: warm, erythema, other (Pressure wrappings on his lower extremities) Musculoskeletal: generalized weakness Neurologic: No AAOx3 Psychiatric: encephalopathic ICD10 Worksheet Patient Problems: Problems Problem Status Onset Septic shock Acute Fever Acute Pain management Acute Renal cell carcinoma Acute Severe low back pain Acute
[2018-08-16] MEDS ORDERED: ENOXAPARIN 150 MG/ML SYR SC SCH (15:15)
[2018-08-16] MEDS: ENOXAPARIN 150 MG/ML SYR SC SCH (16:00)
[2018-08-16] MEDS: HYDROmorphONE/DILAUDID 1 MG/ML INJ IVP PRN (17:04)
[2018-08-16] MEDS ORDERED: BISACODYL 10 MG SUPP PR PRN (17:35)
[2018-08-16] MEDS ORDERED: MAGNESIUM HYDROXIDE 30 ML UDCUP PO PRN (17:35)
[2018-08-16] MEDS ORDERED: LACTULOSE 20 GM/30 ML UDCUP PO PRN (17:35)
[2018-08-16] MEDS: MELATONIN 3 MG TAB PO SCH (20:47)
[2018-08-16] MEDS: SENNOSIDES/DOCUSATE SODIUM TAB PO SCH (20:47)
[2018-08-17] MEDS: PIPERACILLIN/TAZO 4.5 GM/DEX 100 ML IV SCH ×4 (00:59→18:19)
[2018-08-17] MEDS: ENOXAPARIN 150 MG/ML SYR SC SCH ×3 (03:33→20:40)
[2018-08-17] MEDS: METHADONE HCL 10 MG TAB PO SCH ×3 (04:59→21:56)
[2018-08-17] MEDS: GABAPENTIN 300 MG CAP PO SCH ×4 (04:59→21:55)
[2018-08-17] MEDS: LEVOTHYROXINE 25 MCG TAB PO SCH (04:59)
[2018-08-17] MEDS: FUROSEMIDE 40 MG TAB PO SCH (09:43)
[2018-08-17] MEDS: SENNOSIDES/DOCUSATE SODIUM TAB PO SCH ×2 (09:44→21:56)
[2018-08-17] MEDS: FLUoxetine 20 MG CAP PO SCH (09:44)
[2018-08-17] MEDS: INSULIN GLARGINE 100 UNITS/ML UNIT SC SCH (09:53)
--- NOTE | 2018-08-17 09:55 | HOSPPROG ---
Hospitalist Progress Note Assessment/Plan: The patient is a 53-year-old male with PMH metastatic renal cell carcinoma who was admitted for acute sepsis secondary to infected wound/cellulitis on bilateral lower extremities, status post incision and drainage. Continues to be quite confused. Not answering any of my questions. [facility] met with patient and . is still hopeful he is getting better on antibiotics and does not feel like hospice is an option yet. His renal cell ca is endstage and causing venous stasis due to tumor burden and overall prognosis poor and good hospice candidate. She would like to continue IV antibiotics for a few more days before making that decision. # cellulitis with small abscess status post I&D and debridement likely from massive lymphedema from his renal cell carcinoma. * Continue IV antibiotics however long-term prognosis is poor * Discussed with ID currently on Zosyn * Appreciate General surgery, Like dressing change Saturday will hold am Lovenox just in case. Resume when OK per surgery # sepsis associated with cellulitis on admission, resolved # renal cell carcinoma with metastatic disease to the bone but negative MRI of the brain. Poor prognosis as he has failed previous treatments and has massive cancer burden in his abdomen causing bilateral lower extremity edema. Patient is a hospice candidate however is still hopeful that he will improve and is not willing to go with hospice at this time # delirium, patient confused since admission. He is more confused today since yesterday. Unclear what his baseline will be but given this improvement today his would like to continue medical therapy * Continue IV antibiotics # type 2 diabetes # DVT noted 08/04, pt on Lovenox and held for proceedures. Discussed with surgery and Dr. Chambers plans on dressing change Saturday. Will resume Lovenox and surgery can hold on Saturday am if needed. VTE prophylaxis: Lovenox Code Status: DNR Status: Inpatient for greater than 2 midnight stay. Disposition: Med surg ____ Subjective: confused Objective: Vital Signs Temp Pulse Resp BP Pulse Ox 36.6 C 79 14 126/61 H 98 08/17/18 07:49 08/17/18 07:49 08/17/18 07:49 08/17/18 07:49 08/17/18 07:49 Microbiology 08/13/18 07:51 Gram Stain - Final Leg - Tissue 08/13/18 07:51 Gram Stain - Final Leg - Eswab Laboratory Results 08/16/18 05:39 08/16/18 05:39 08/16/18 08/17/18 08/18/18 05:59 05:59 05:59 Intake Total 665 1300 440 Output Total 905 1050 Balance -240 250 440 - Physical Exam Constitutional: chronically ill appearing, uncomfortable Eyes: PERRL Ears, Nose, Mouth, Throat: moist mucous membranes Cardiovascular: regular rate and rhythym Respiratory: no respiratory distress Gastrointestinal: tenderness, distension Genitourinary: cortez in urethra Skin: pressure ulcer, other (edema/ wraps on both legs) Neurologic: No AAOx3 Psychiatric: encephalopathic ICD10 Worksheet Patient Problems: Problems Problem Status Onset Renal cell carcinoma Acute Pain management Acute Fever Acute Severe low back pain Acute Septic shock Acute
--- NOTE | 2018-08-17 15:18 | SOAPPROG ---
SOAP Progress Note Assessment/Plan: Assessment: MORE ALERT TODAY/AFEBRILE/SOME CONVERSATION AND COMPLAINS OF LEFT LEG PAIN WITH MOVEMENT DRESSINGS DRY AND INTACT AND CIRCULATION INTACT HEENT NONICTERIC/CHEST CLEAR/COR REGULAR RHYTHM/ABDOMEN SOFT/EXTREMITIES WITH EDEMA ON THE LEFT AND UNNA BOOT DRESSINGS BILATERALLY Plan: CHANGE DRESSINGS ON SATURDAY/CONTINUE ELEVATION/MAY BE ABLE TO RESTART ANTICOAGULATION 08/16/18 11:09 08/17/18 15:17 NO REAL CHANGE/ REMAINS AFEBRILE/ WILL CHANGE DRESSINGS IN THE A.M./NO NEW ISSUES Objective: Vital Signs Temp Pulse Resp BP Pulse Ox 36.2 C 81 18 140/49 H 94 08/17/18 12:00 08/17/18 12:00 08/17/18 12:00 08/17/18 12:00 08/17/18 12:00 Microbiology 08/13/18 07:51 Gram Stain - Final Leg - Tissue 08/13/18 07:51 Gram Stain - Final Leg - Eswab Laboratory Results 08/16/18 05:39 08/16/18 05:39 08/16/18 08/17/18 08/18/18 05:59 05:59 05:59 Intake Total 665 1300 440 Output Total 905 1050 Balance -240 250 440 ICD10 Worksheet Patient Problems: Problems Problem Status Onset Septic shock Acute Fever Acute Pain management Acute Renal cell carcinoma Acute Severe low back pain Acute
--- NOTE | 2018-08-17 15:26 | PCMIDPN ---
Assessment/Plan: Assessment: Right lower extremity cellulitis and abscess secondary polymicrobial Gram negatives including Pseudomonas, Hafnia and Klebsiella. Covered by current ongoing Zosyn use. He is status post drainage and debridement. His mental status is still markedly depressed. I wonder if this is toxic/metabolic in origin and more linked to his advancing renal cancer than the localized infection in his calf. Plan: 1. Continue empiric IV Zosyn. 2. Follow appearance lower extremities. 3. Follow his alertness status. Subjective: Patient is sleeping in his hospital bed. His is at his bedside. His relates that he was awake and conversant to her when she 1st arrived but has since drifted back to sleep. She feels that he is slowly improving but he is not near where he usually is. Objective: Zosyn # 8 Vital Signs Temp Pulse Resp BP Pulse Ox 36.2 C 81 18 140/49 H 94 08/17/18 12:00 08/17/18 12:00 08/17/18 12:00 08/17/18 12:00 08/17/18 12:00 Microbiology 08/13/18 07:51 Gram Stain - Final Leg - Tissue 08/13/18 07:51 Gram Stain - Final Leg - Eswab Laboratory Results 08/16/18 05:39 08/16/18 05:39 08/16/18 08/17/18 08/18/18 05:59 05:59 05:59 Intake Total 665 1300 440 Output Total 905 1050 Balance -240 250 440 - Physical Exam General Appearance: WD/WN, no apparent distress, non-toxic, No alert Respiratory: lungs clear, normal breath sounds, No respiratory distress Cardiac/Chest: regular rate, rhythm, No tachycardia Extremities: calf tenderness (Right side), No non-tender, No normal inspection Skin: normal color, warm/dry, No rash Neuro/Psych: No alert ICD10 Worksheet Patient Problems: Problems Problem Status Onset Septic shock Acute Fever Acute Pain management Acute Renal cell carcinoma Acute Severe low back pain Acute
--- NOTE | 2018-08-17 15:41 | ASMTCMCOM ---
CM Note CM Note Notes: CM discussed case with RN, Hospice to meet with tomorrow. CM to follow. Date Signed: 08/17/2018 03:41 PM Electronically Signed By:Johana Marei
[2018-08-17] MEDS: ACETAMINOPHEN 325 MG TAB PO PRN (17:07)
--- NOTE | 2018-08-17 18:54 | SOAPPROG ---
SOAP Progress Note Assessment/Plan: Initialization Date: 08/15/18 14:04 SOAP Progress Note Assessment/Plan: Assessment/Plan: 53 yo gentleman w stage IV RCC admitted w bilateral LE cellulitis, LLE>R and LLE DVT 1. cellulitis/fasciitis- micro w klebsiella and pseudomonas on zosyn will be ongoing problem w lymphedema caused by renal mass POD #4 from first I&D w debridement (Dr Chambers); went back to OR saturday. 2. LLE DVT - no anticoag at the moment, s/p surgery. 3. Stage 4 RCC - cabozantinib on hold 5th line therapy. No further treatment options. Hospice most appropriate. Appreciate dr. esparza's note. desiring few more days of antibiotics before making final decision. Patient is appropriately a no cor. MRI brain shows NO mets 4. Delerium-multifactorial. no known brain mets. Subjective: mumbling Objective: Vital Signs Temp Pulse Resp BP Pulse Ox 36.5 C 80 16 114/61 97 08/17/18 15:59 08/17/18 15:59 08/17/18 15:59 08/17/18 15:59 08/17/18 15:59 Microbiology 08/13/18 07:51 Gram Stain - Final Leg - Tissue 08/13/18 07:51 Gram Stain - Final Leg - Eswab Laboratory Results 08/16/18 05:39 08/16/18 05:39 08/16/18 08/17/18 08/18/18 05:59 05:59 05:59 Intake Total 665 1300 640 Output Total 905 1050 450 Balance -240 250 190 Physical Exam - Physical Exam General Appearance: other (minimally responsive) Abdomen: soft Extremities: other (bandaged.) ICD10 Worksheet Patient Problems: Problems Problem Status Onset Septic shock Acute Fever Acute Pain management Acute Renal cell carcinoma Acute Severe low back pain Acute
[2018-08-17] MEDS: MELATONIN 3 MG TAB PO SCH (21:55)
[2018-08-18] MEDS: PIPERACILLIN/TAZO 4.5 GM/DEX 100 ML IV SCH ×5 (00:36→23:10)
[2018-08-18 05:23] LABS: PLATELET COUNT 290 10^3/uL (150-400)
[2018-08-18] MEDS: METHADONE HCL 10 MG TAB PO SCH ×3 (05:28→21:02)
[2018-08-18] MEDS: GABAPENTIN 300 MG CAP PO SCH ×3 (05:28→21:02)
[2018-08-18] MEDS: LEVOTHYROXINE 25 MCG TAB PO SCH (05:28)
[2018-08-18] MEDS ORDERED: CALAMINE/ZINC OXIDE 1 EA BANDAGE (UNNA BOOT) TP ONE (08:49)
[2018-08-18] MEDS: FUROSEMIDE 40 MG TAB PO SCH (09:35)
[2018-08-18] MEDS: FLUoxetine 20 MG CAP PO SCH (09:35)
[2018-08-18] MEDS: SENNOSIDES/DOCUSATE SODIUM TAB PO SCH ×2 (09:41→21:02)
[2018-08-18] MEDS: INSULIN GLARGINE 100 UNITS/ML UNIT SC SCH (09:51)
[2018-08-18] MEDS ORDERED: LIDOCAINE 2% JELLY 20 ML (UROJECT) UR ONE (10:23)
[2018-08-18] MEDS ORDERED: LIDOCAINE 2% JELLY 20 ML (UROJECT) UR PRN (10:24)
--- NOTE | 2018-08-18 10:44 | SOAPPROG ---
SOAP Progress Note Assessment/Plan: Assessment: 53 Y M hx metastatic renal cell CA, cellulitis, sepsis S/p BLE I&Ds. Last debridement was on 08/15 S: Talking, asking for water. Pain with feet touching end of bed. O:Awake, alert Afebrile No increased WOB WBC trending down BLE dressings intact Plan: Remove and replace unna boots at bedside later today. Elevate BLEs. Per RN, pt and have chosen hospice. 08/18/18 10:40 Objective: Vital Signs Temp Pulse Resp BP Pulse Ox 36.7 C 80 12 122/61 H 94 08/18/18 08:00 08/18/18 08:00 08/18/18 08:00 08/18/18 08:00 08/18/18 08:00 Microbiology 08/13/18 07:51 Gram Stain - Final Leg - Tissue Laboratory Results 08/18/18 05:10 08/18/18 05:10 08/17/18 08/18/18 08/19/18 05:59 05:59 05:59 Intake Total 1300 1090 Output Total 1050 700 Balance 250 390 ICD10 Worksheet Patient Problems: Problems Problem Status Onset Septic shock Acute Fever Acute Pain management Acute Renal cell carcinoma Acute Severe low back pain Acute
[2018-08-18] MEDS: HYDROmorphONE/DILAUDID 1 MG/ML INJ IVP PRN (12:15)
--- NOTE | 2018-08-18 16:09 | ASMTCMCOM ---
CM Note CM Note Notes: CM spoke to Dr. Castaneda and Silvia, RN regarding d/c POC. CM spoke to Suzette at [facility]. Suzette reports that pt had a informational on Saturday. CM met w/ pt for proxy paperwork. Pts has been named proxy. is not ready for hospice. Per , pt has been fighting cancer for 6 years. CM to follow. Plan: TBD Date Signed: 08/18/2018 04:08 PM Electronically Signed By:MAHENDRA Gomez
[2018-08-18] MEDS: ACETAMINOPHEN 325 MG TAB PO PRN (16:52)
--- NOTE | 2018-08-18 17:17 | HOSPPROG ---
Hospitalist Progress Note Assessment/Plan: Subjective Follow-up on encephalopathy and cellulitis with abscess. No acute events overnight. Patient was clearly delirious at the time my evaluation. He attempted to vocalize but was saying nothing meaningful. I did correspond with Case Management on his case today and hospice was still looking at the case. Objective Vital signs as detailed below Exam General-awake and vocalizing but not oriented Heart-regular rate and rhythm no murmurs Lungs-Clear to auscultation with normal respiratory effort Abdomen-soft nontender nondistended normal bowel sounds -Dias catheter in place Extremities-notable edema of left lower extremity, bandages were in place which appeared clean without malodor Labs as detailed below Assessment plan Cellulitis with abscess-continue antibiotics per Infectious disease's recommendations along with topical wound care. Sepsis-present on admission and now resolved. Encephalopathy-suspect related to underlying malignancy along with infection and narcotics. Acute hypoxic respiratory failure-likely secondary to atelectasis. This was conveyed on 08/10/2018 chest x-ray. Renal cell carcinoma-metastatic. Diagnosed over 5 years ago and he has failed multiple chemotherapy agents. I think his prognosis is very poor and hospice consult very appropriate. Diabetes mellitus type 2-glucose readings look reasonable at 196-295 -189 -118. Continue Lantus 20 units daily. Deep vein thrombosis-left lower extremity. Continue Lovenox. Disposition-patient is a do not attempt resuscitation. Objective: Vital Signs Temp Pulse Resp BP Pulse Ox 36.6 C 91 12 129/60 H 97 08/18/18 15:58 08/18/18 15:58 08/18/18 15:58 08/18/18 15:58 08/18/18 15:58 Microbiology 08/13/18 07:51 Gram Stain - Final Leg - Eswab 08/13/18 07:51 Gram Stain - Final Leg - Tissue Laboratory Results 08/18/18 05:10 08/18/18 05:10 08/17/18 08/18/18 08/19/18 05:59 05:59 05:59 Intake Total 1300 1090 1300 Output Total 1050 700 700 Balance 250 390 600 ICD10 Worksheet Patient Problems: Problems Problem Status Onset Septic shock Acute Fever Acute Pain management Acute Renal cell carcinoma Acute Severe low back pain Acute
[2018-08-18] MEDS: MELATONIN 3 MG TAB PO SCH (21:02)
[2018-08-19] MEDS: HYDROmorphONE/DILAUDID 1 MG/ML INJ IVP PRN (02:11)
[2018-08-19] MEDS ORDERED: LORazepam 2 MG/ML INJ IVP ONE (03:36)
[2018-08-19] MEDS: PIPERACILLIN/TAZO 4.5 GM/DEX 100 ML IV SCH ×2 (05:15→13:04)
[2018-08-19] MEDS: METHADONE HCL 10 MG TAB PO SCH ×3 (05:16→23:29)
[2018-08-19] MEDS: LEVOTHYROXINE 25 MCG TAB PO SCH (05:16)
[2018-08-19] MEDS: GABAPENTIN 300 MG CAP PO SCH ×3 (05:17→23:29)
[2018-08-19] MEDS: FLUoxetine 20 MG CAP PO SCH (10:11)
[2018-08-19] MEDS: FUROSEMIDE 40 MG TAB PO SCH (10:11)
[2018-08-19] MEDS: INSULIN GLARGINE 100 UNITS/ML UNIT SC SCH (10:14)
--- NOTE | 2018-08-19 11:45 | SOAPPROG ---
SOAP Progress Note Assessment/Plan: Assessment/Plan: 53 Y M hx metastatic renal cell CA, DM, cellulitis, sepsis. s/ p BLE leg debridement c extensive LLE I&D. Wounds viewed directly yesterday during LLE wound packing and B UNNA boot placements with Dr. Chambers. Wounds appear clean, much improved. No need for more debridement at this time. Reinforced importance of elevation. Plan to leave RLE UNNA boot in place for a week, and to change LLE UNNA book tomorrow. Unsure of hospice/palliative care status but will continue to follow and treat for now. S:Awake, talkative, recognizes Dr. Chambers but thinks he saw him this morning, which he didn't. Some confusion, but more alert than last week. O:see above. 08/19/18 11:45 Objective: Vital Signs Temp Pulse Resp BP Pulse Ox 36.8 C 95 16 128/76 H 95 08/19/18 07:43 08/19/18 07:43 08/19/18 07:43 08/19/18 07:43 08/19/18 07:43 Microbiology 08/13/18 07:51 Gram Stain - Final Leg - Eswab 08/13/18 07:51 Gram Stain - Final Leg - Tissue Laboratory Results 08/18/18 05:10 08/18/18 05:10 08/18/18 08/19/18 08/20/18 05:59 05:59 05:59 Intake Total 1090 1500 Output Total 700 700 Balance 390 800 ICD10 Worksheet Patient Problems: Problems Problem Status Onset Septic shock Acute Fever Acute Pain management Acute Renal cell carcinoma Acute Severe low back pain Acute
--- NOTE | 2018-08-19 13:25 | PCMIDPN ---
Assessment/Plan: # Sepsis with L>R lower extremity cellulitis due to horner susceptible Pseudomonas : Unable to examine wounds due to dressings in place but by report down to healthy tissue. Patient Still remains delirious. All antibiotics agents to treat Pseudomonas can cause PHOTOGRAPH ENLARGER toxicity. --reasonable to try changing antibiotics agents with refractory delirium, will try changing to levofloxacin and monitor clinically --tentatively could treat for 2 weeks, but ideal to examine LE prior to DC of abx --will get baseline EKG due to co-administration of multiple drugs that cause prolonged QT meds zosyn 4.5gm IV p2tffap #10 Microbiology 08/09/18 Leg - Swab Pseudomonas Aeruginosa 08/08/18 Leg - Swab Pseudomonas Aeruginosa; Klebsiella Variicola 08/08/18 Blood Cx (2) NGTD 08/13/18 OR CX: gram stain neg for organisms Subjective: patient following simple command but no decipherable conversation, calling out for his mother intermittently at bedside, upset about clinical course Objective: Vital Signs Temp Pulse Resp BP Pulse Ox 37.2 C 107 H 16 106/85 H 95 08/19/18 11:46 08/19/18 11:46 08/19/18 11:46 08/19/18 11:46 08/19/18 11:46 Microbiology 08/13/18 07:51 Gram Stain - Final Leg - Eswab 08/13/18 07:51 Gram Stain - Final Leg - Tissue Laboratory Results 08/18/18 05:10 08/18/18 05:10 08/18/18 08/19/18 08/20/18 05:59 05:59 05:59 Intake Total 1090 1500 Output Total 700 700 Balance 390 800 - Physical Exam General Appearance: other (confused but no distress) EENT: dry mucous membranes, No thrush Respiratory: other (shallow inspiration), No accessory muscle use Neck: supple Cardiac/Chest: regular rate, rhythm Extremities: pedal edema (L>R, dressing in place B; legs are no elevated. Pain w movement L leg) Abdomen: soft, No distended Skin: pallor, No rash Neuro/Psych: confused - Time Spent With Patient Time Spent with Patient: greater than 35 minutes (reviewed pathogenesis of PsA including prior abx use, immune suppression; planned antibiotic change but that it was low likelihood that antibiotic causing delirium and that metastic CA + severe infection may have started downward spiral that is not re-directable despite control of infection) Time Spent with Patient: Greater than 35 minutes spent on this patients care, greater than 50% of time spent counseling, educating, and coordinating care regarding the above mentioned plan. ICD10 Worksheet Patient Problems: Problems Problem Status Onset Septic shock Acute Fever Acute Pain management Acute Renal cell carcinoma Acute Severe low back pain Acute
[2018-08-19] MEDS: ENOXAPARIN 150 MG/ML SYR SC SCH ×2 (15:41→23:32)
[2018-08-19] MEDS: SENNOSIDES/DOCUSATE SODIUM TAB PO SCH ×2 (15:41→23:30)
[2018-08-19] MEDS: MELATONIN 3 MG TAB PO SCH (23:29)
[2018-08-20] MEDS: GABAPENTIN 300 MG CAP PO SCH ×3 (05:55→19:38)
[2018-08-20] MEDS: LEVOTHYROXINE 25 MCG TAB PO SCH (05:55)
[2018-08-20] MEDS: METHADONE HCL 10 MG TAB PO SCH ×4 (05:55→22:47)
[2018-08-20] MEDS ORDERED: CALAMINE/ZINC OXIDE 1 EA BANDAGE (UNNA BOOT) TP ONE (08:22)
[2018-08-20] MEDS: SENNOSIDES/DOCUSATE SODIUM TAB PO SCH ×2 (08:31→19:39)
[2018-08-20] MEDS: POLYETHYLENE GLYCOL 3350 17 GM PKT PO PRN (08:31)
[2018-08-20] MEDS: FUROSEMIDE 40 MG TAB PO SCH (08:31)
[2018-08-20] MEDS: FLUoxetine 20 MG CAP PO SCH (08:32)
[2018-08-20] MEDS: ENOXAPARIN 150 MG/ML SYR SC SCH ×2 (08:33→19:39)
[2018-08-20] MEDS: HYDROmorphONE/DILAUDID 1 MG/ML INJ IVP PRN (09:06)
--- NOTE | 2018-08-20 09:09 | PCMIDPN ---
Assessment/Plan: # Sepsis with L>R lower extremity cellulitis due to horner susceptible Pseudomonas. Appearance of leg today shows many wounds from debridement, less edema and no active cellulitis, purulence --despite lack of active infection doubt multiple wounds could heal and overall prognosis poor, recommend hospice # delirium: likely due to pain meds, progressive cancer meds, Abx #11 Levaquin 750PO Daily, # 1 Microbiology 08/13/18 07:51 Leg - Tissue Pseudomonas Aeruginosa; Klebsiella Oxytoca ; Hafnia Alvei 08/09/18 Leg - Swab Pseudomonas Aeruginosa 08/08/18 Leg - Swab Pseudomonas Aeruginosa; Klebsiella Variicola 08/08/18 Blood Cx (2) NGTD 08/13/18 OR CX: gram stain neg for organisms Subjective: extensive discussed hospice with patient along with Dr. Pulido at bedside patient moaning in pain and requesting to be allowed to pulled picc line out last night Objective: Vital Signs Temp Pulse Resp BP Pulse Ox 36.5 C 103 H 16 140/79 H 94 08/20/18 07:28 08/20/18 07:28 08/20/18 07:28 08/20/18 07:28 08/20/18 07:28 Microbiology 08/13/18 07:51 Gram Stain - Final Leg - Eswab 08/13/18 07:51 Gram Stain - Final Leg - Tissue Laboratory Results 08/18/18 05:10 08/18/18 05:10 08/19/18 08/20/18 08/21/18 05:59 05:59 05:59 Intake Total 1500 800 Output Total 700 1550 Balance 800 -750 - Physical Exam General Appearance: apparent distress, obese EENT: pale conjunctiva, No scleral icterus Respiratory: crackles (B bases), No accessory muscle use Cardiac/Chest: tachycardia Extremities: other (LLE Multiple large wounds, clean but very little granulation. bleeding easily; denuded skin throughout but no erythema, much less swelling, mild warmth, very tender) Abdomen: non-tender, soft Neuro/Psych: alert, cognition abnormalities (thinks leesa is president and that he is residing in [place], unable to give year), disoriented to place, disoriented to time - Time Spent With Patient Time Spent with Patient: greater than 35 minutes Time Spent with Patient: Greater than 35 minutes spent on this patients care, greater than 50% of time spent counseling, educating, and coordinating care regarding the above mentioned plan. ICD10 Worksheet Patient Problems: Problems Problem Status Onset Septic shock Acute Fever Acute Pain management Acute Renal cell carcinoma Acute Severe low back pain Acute
--- NOTE | 2018-08-20 09:12 | HOSPPROG ---
Hospitalist Progress Note Assessment/Plan: #Severe sepsis: due to BL leg cellulitis, ulcerations. Klebsiella/Pseudomonas on culture. Day 11 abx #Lymphedema: from cancer. Contributing to ulcerations. Oral lasix #Metastatic RCC: followed by Dr. Oakley who will visit this evening #Chronic pain on chronic opioids: hold Opana with AMS. Cont methadone, oxycodone. #Acute metabolic encephalopathy: infection +/- opioids. #Obesity #Leukocytosis: been elevated for past month. Abx as above #BL LE DVT: Lovenox #DM 2: Glargine, SSI #Diet: ADAt #DVT ppx: Lovenox #Goals: Dr Moore, [facility] bedside with , Beryl. Explained he has very poor prognosis of wounds healing. He tells her that he wants to be done and tired of being in pain. She is concerned about his delirium; unfortunately, I think he is at point of terminal delirium and cannot make his own decisions. She met with [facility] today and will proceed with inpatient hospice tomorrow. Transition to comfort measures here. Dr. Oakley aware of plan. Spiritual care consulted Additional direct care time spent: 30 min bedside with discussing goals, transition to hospice. (9:15-9:45) Subjective: "Let me . I am done" Pain terrible in left leg Objective: Vital Signs Temp Pulse Resp BP Pulse Ox 36.5 C 103 H 16 140/79 H 94 08/20/18 07:28 08/20/18 07:28 08/20/18 07:28 08/20/18 07:28 08/20/18 07:28 Microbiology 08/13/18 07:51 Gram Stain - Final Leg - Eswab 08/13/18 07:51 Gram Stain - Final Leg - Tissue Laboratory Results 08/18/18 05:10 08/18/18 05:10 08/19/18 08/20/18 08/21/18 05:59 05:59 05:59 Intake Total 1500 800 Output Total 700 1550 Balance 800 -750 - Time Spent With Patient Time Spent with Patient: greater than 35 minutes Time Spent with Patient: Greater than 35 minutes spent on this patients care, greater than 50% of time spent counseling, educating, and coordinating care regarding the above mentioned plan. - Physical Exam Constitutional: other (moderated distress, moaning due to pain in leg) Eyes: PERRL Ears, Nose, Mouth, Throat: moist mucous membranes Cardiovascular: regular rate and rhythym Respiratory: no respiratory distress Gastrointestinal: normoactive bowel sounds Genitourinary: no bladder fullness Musculoskeletal: other (left leg with open debridement exicisons. No active purulence, infection) Psychiatric: encephalopathic ICD10 Worksheet Patient Problems: Problems Problem Status Onset Fever Acute Pain management Acute Renal cell carcinoma Acute Septic shock Acute Severe low back pain Acute
--- NOTE | 2018-08-20 10:25 | SOAPPROG ---
SOAP Progress Note Assessment/Plan: Assessment/Plan: 53 Y M hx metastatic renal cell CA, DM, cellulitis, sepsis. s/ p BLE leg debridement c extensive LLE I&D. Seen today with Drs. Pulido and Teresa. LLE UNNA boot changed today. Patient in much distress despite premedication. Wounds are clean but extensive. Will continue this aggressive care unless patient and opt for palliative/ hospice option. Dressing changes could also be done by home nurse or SNF when patient ready for discharge. Amputation is a possibility, but not necessarily recommended. For now, plan on LLE UNNA boot change on Saturday, and RLE UNNA boot change next week. S: dressing change is painful. "Let me go...let me ....I'm sorry....I've love you (to )" O: alert, but not oriented. thinks he is in [place] and Frank is president. no wob rrr abd soft ext RLL in UNNA boot. LLE c significantly improved edema. Multiple large wounds , clean but very little granulation. bleeding easily. shallow distal anterior marquis ulcer with less slough and better granulation today compared to Saturday. 08/20/18 10:17 Objective: Vital Signs Temp Pulse Resp BP Pulse Ox 36.5 C 103 H 16 140/79 H 94 08/20/18 07:28 08/20/18 07:28 08/20/18 07:28 08/20/18 07:28 08/20/18 07:28 Microbiology 08/13/18 07:51 Gram Stain - Final Leg - Eswab 08/13/18 07:51 Gram Stain - Final Leg - Tissue Laboratory Results 08/18/18 05:10 08/18/18 05:10 08/19/18 08/20/18 08/21/18 05:59 05:59 05:59 Intake Total 1500 800 Output Total 700 1550 Balance 800 -750 ICD10 Worksheet Patient Problems: Problems Problem Status Onset Septic shock Acute Fever Acute Pain management Acute Renal cell carcinoma Acute Severe low back pain Acute
[2018-08-20] MEDS: INSULIN GLARGINE 100 UNITS/ML UNIT SC SCH (13:52)
--- NOTE | 2018-08-20 14:04 | ASMTCMCOM ---
CM Note CM Note Notes: CM spoke to Dr. Pulido and Rosette, RN regarding d/c POC. CM met w/ pt and for dispo planning. Pt is requesting for hospice. CM called [facility] in and pt and wants the care center. The care center is currently full at this time. CM to follow. Plan: [facility] Date Signed: 08/20/2018 02:04 PM Electronically Signed By:MAHENDRA Gomez
--- NOTE | 2018-08-20 14:29 | GOP ---
DATE OF OPERATION: 08/15/2018 SURGEON: Rich Chambers MD CARBONATION TESTER: Norah Saavedra, nurse practitioner PREOPERATIVE DIAGNOSIS: Left leg cellulitis with abscesses. POSTOPERATIVE DIAGNOSIS: Left leg cellulitis with abscesses. PROCEDURE PERFORMED: Left leg excisional debridement with I and D of 2 separate abscesses and Unna boot placement. FINDINGS: IMPROVED GRANULATION, TWO NEW ABSCESS POCKETS DESCRIPTION OF PROCEDURE: The patient was taken to the the operating room where he received a satisfactory general endotracheal anesthesia. He was placed in the supine position with the left leg elevated. He was prepped and draped in usual sterile fashion. Areas of necrotic tissue were debrided. It was much less than the original surgery 2 days before; however, 2 other abscess pockets were identified and I and D. Contents were curetted out and all the wounds were then flushed with the pulse lavage and then packed with fine mesh gauze. Wounds were covered with Adaptic, and then, an Unna boot, which was then covered with Kerlix, an Isidoro wrap for counter pressure. He tolerated the procedure well. Blood loss was negligible. There were no complications. He was taken to recovery room in good condition. /[id number]/MODL MTDD
--- NOTE | 2018-08-20 16:35 | CPEKG ---
Test Reason : OPEN Blood Pressure : / mmHG Vent. Rate : 088 BPM Atrial Rate : 088 BPM P-R Int : 156 ms QRS Dur : 098 ms QT Int : 357 ms P-R-T Axes : 054 077 012 degrees QTc Int : 432 ms Sinus rhythm Confirmed by Rich Givens ([id number]) on 08/20/2018 4:34:50 PM Referred By: Confirmed By:Rich Givens
--- NOTE | 2018-08-20 18:29 | SOAPPROG ---
SOAP Progress Note Assessment/Plan: Assessment: I spoke with the patient and his Beryl. Alexandre is clearly in a clinical situation where there is no hope for a meaningful recovery due to his progressive cancer with no good therapeutic options, chronic LE edema and infection, ECOG 4 functional status, and poor nutritional status. At this time best supportive care/inpatient hospice is the most appropriate course of action. I communicated this to Alexandre and Beryl. He is anxious to go to inpatient hospice as soon as a bed becomes available. Objective: Vital Signs Temp Pulse Resp BP Pulse Ox 36.3 C 100 16 116/68 92 08/20/18 16:40 08/20/18 16:40 08/20/18 16:40 08/20/18 16:40 08/20/18 16:40 Microbiology 08/13/18 07:51 Gram Stain - Final Leg - Eswab Anaerobic Culture - Final Pseudomonas Aeruginosa 08/13/18 07:51 Gram Stain - Final Leg - Tissue Anaerobic Culture - Final Pseudomonas Aeruginosa Klebsiella Oxytoca Hafnia Alvei Laboratory Results 08/18/18 05:10 08/18/18 05:10 08/18/18 08/19/18 08/20/18 23:59 23:59 23:59 Intake Total 9363 747 2309 Output Total 950 1150 950 Balance 800 -450 50 ICD10 Worksheet Patient Problems: Problems Problem Status Onset Septic shock Acute Fever Acute Pain management Acute Renal cell carcinoma Acute Severe low back pain Acute
[2018-08-20] MEDS: MELATONIN 3 MG TAB PO SCH (19:39)
[2018-08-21] MEDS: LEVOTHYROXINE 25 MCG TAB PO SCH (06:10)
[2018-08-21] MEDS: GABAPENTIN 300 MG CAP PO SCH ×2 (06:10→13:45)
[2018-08-21] MEDS: METHADONE HCL 10 MG TAB PO SCH (06:11)
[2018-08-21 08:28] VITALS: BP 113/62
--- NOTE | 2018-08-21 08:29 | PDIAF ---
- Diagnosis Diagnosis: RCC, BL LE wounds Code Status: Do Not Resuscitate - Medication Management Discharge Medications: electronically signed and located in the Home Medication List. - Orders Services needed: Registered Nurse, Certified Assistant Tennis Coach Isolation Type: None Diet Recommendation: no restrictions on diet Diet Texture: Regular Texture Diet - Follow Up Care Current Providers and Referrals: JOHNNY ZHANG [Primary Care Provider] -
--- NOTE | 2018-08-21 08:37 | HOSPPROG ---
Hospitalist Progress Note Assessment/Plan: Please see dictated DC summary for full A&P. Plan to DC to inpatient hospice today. #Goals: Beryl and patient agree with plan. Appreciate Dr. Oakley's visit last evening #Acute on chronic pain: increase IV dilaudid #Chronic medical issues: discontinued most of oral meds to decrease pill burden unless contribute to his comfort. #Medication error: patient dosed methadone 30mg 6am, 20mg 9am today. This has been ordered since 08/11, but has not been dosed 30mg since 08/17 due to sedation. Patient is over-sedated and somnolent this afternoon, 14:30. I sat with and explained error. Will resume only 20mg daily at discharge if more alert in morning Objective: Vital Signs Temp Pulse Resp BP Pulse Ox 36.7 C 87 18 113/62 97 08/21/18 08:26 08/21/18 08:26 08/21/18 08:26 08/21/18 08:26 08/21/18 08:26 Microbiology 08/13/18 07:51 Gram Stain - Final Leg - Eswab Anaerobic Culture - Final Pseudomonas Aeruginosa 08/13/18 07:51 Gram Stain - Final Leg - Tissue Anaerobic Culture - Final Pseudomonas Aeruginosa Klebsiella Oxytoca Hafnia Alvei Laboratory Results 08/18/18 05:10 08/18/18 05:10 08/20/18 08/21/18 08/22/18 05:59 05:59 05:59 Intake Total 800 800 Output Total 1550 925 Balance -750 -125 ICD10 Worksheet Patient Problems: Problems Problem Status Onset Septic shock Acute Fever Acute Pain management Acute Renal cell carcinoma Acute Severe low back pain Acute
[2018-08-21] MEDS ORDERED: METHADONE HCL 10 MG TAB PO SCH (09:00)
--- NOTE | 2018-08-21 09:14 | GDS ---
DISCHARGE DIAGNOSES: 1. Severe sepsis. 2. Bilateral leg cellulitis/abscess, status post incision and drainage. 3. Lymphedema from renal cell carcinoma. 4. Metastatic renal cell carcinoma. 5. Chronic pain on chronic opioids. 6. Acute metabolic encephalopathy. 7. Obesity. 8. Leukocytosis. 9. Bilateral leg deep venous thrombosis. 10. Type 2 diabetes. CONSULTATIONS: 1. Infectious Disease. 2. Oncology. 3. Surgery. PROCEDURES: 08/13 left leg excisional debridement with I and D of 2 separate abscesses. HISTORY OF PRESENT ILLNESS: A 53-year-old male well known to me with metastatic renal cell carcinoma , chronic pain on opioids, presenting with progressive leg wounds and pain, more so on the left. He was discharged August 05 from the hospital with blistering of the left cynthia, treated with IV antib iotics, and discharged on Augmentin and doxycycline. He feels very weak and tired, and pain is much increased with more redness and pus drainage. HOSPITAL COURSE: 1. Severe sepsis, secondary to bilateral leg cellulitis/left leg abscesses: Infectious Disease and Surgery were consulted. Patient underwent I and D of several abscesses. He was treated with antibio tics for coverage of Pseudomonas. Unfortunately given his metastatic cancer and poor performance sta tus, he will have minimal chance of recovering from this infection. Currently undergoing daily wound changes. At this time, it does not look purulent or signs of infection. 2. Bilateral leg DVTs: On Lovenox. 3. Chronic lymphedema: This is what contributed to his leg infections, likely from his cancer. We will continue Lasix for comfort. 4. Acute kidney injury: Resolved. 5. Acute on chronic pain: Increased pain due to leg infection. He was followed by [facility] as a n outpatient on Opana, methadone, and oxycodone. He came here encephalopathic, thus the Opana was di scontinued. IV Dilaudid was added for more comfort. 6. Uncontrolled diabetes: Steroids were contributing. 7. Metastatic renal cell carcinoma: He is followed by Dr. Oakley. 8. Metabolic encephalopathy: Multifactorial with infection, opioids, and terminal delirium. 9. Goals: I had a lengthy conversation with his . Patient expressed to me that he wants to and leave the hospital and go to hospice. has been very hesitant as she states that he is alwa ys in pain. I explained to her that this infection is what would likely take his life and has poor p rognosis of healing given poor performance status and underlying malignancy. She met with [facility] yesterday and agreed for inpatient hospice hopefully today. DISPOSITION: Patient is stable for discharge to inpatient hospice. Time spent on discharge greater than 30 minutes coordinating with case management and hospice for dis charge. /[id number]/MODL
[2018-08-21] MEDS: SENNOSIDES/DOCUSATE SODIUM TAB PO SCH (09:32)
[2018-08-21] MEDS: FLUoxetine 20 MG CAP PO SCH (09:32)
[2018-08-21] MEDS: FUROSEMIDE 40 MG TAB PO SCH (09:32)
[2018-08-21] MEDS: POLYETHYLENE GLYCOL 3350 17 GM PKT PO PRN (09:33)
[2018-08-21] MEDS: ENOXAPARIN 150 MG/ML SYR SC SCH (09:33)
[2018-08-21] MEDS: INSULIN GLARGINE 100 UNITS/ML UNIT SC SCH (09:39)
--- NOTE | 2018-08-21 10:43 | SOAPPROG ---
SOAP Progress Note Assessment/Plan: Assessment: MORE ALERT TODAY/AFEBRILE/SOME CONVERSATION AND COMPLAINS OF LEFT LEG PAIN WITH MOVEMENT DRESSINGS DRY AND INTACT AND CIRCULATION INTACT HEENT NONICTERIC/CHEST CLEAR/COR REGULAR RHYTHM/ABDOMEN SOFT/EXTREMITIES WITH EDEMA ON THE LEFT AND UNNA BOOT DRESSINGS BILATERALLY Plan: CHANGE DRESSINGS ON SATURDAY/CONTINUE ELEVATION/MAY BE ABLE TO RESTART ANTICOAGULATION 08/16/18 11:09 08/17/18 15:17 NO REAL CHANGE/ REMAINS AFEBRILE/ WILL CHANGE DRESSINGS IN THE A.M./NO NEW ISSUES 08/21/18 10:42 LESS PAIN TODAY/ AFEBRILE/ MORE CONVERSANT POSSIBLY EADIG FOR OSPICE TODAY/ IF OT THE DRESSIG MARLENE I AM Objective: Vital Signs Temp Pulse Resp BP Pulse Ox 36.7 C 87 18 113/62 97 08/21/18 08:26 08/21/18 08:26 08/21/18 08:26 08/21/18 08:26 08/21/18 08:26 Microbiology 08/13/18 07:51 Gram Stain - Final Leg - Eswab Anaerobic Culture - Final Pseudomonas Aeruginosa 08/13/18 07:51 Gram Stain - Final Leg - Tissue Anaerobic Culture - Final Pseudomonas Aeruginosa Klebsiella Oxytoca Hafnia Alvei Laboratory Results 08/18/18 05:10 08/18/18 05:10 08/20/18 08/21/18 08/22/18 05:59 05:59 05:59 Intake Total 800 800 Output Total 1060 925 Balance -750 -125 ICD10 Worksheet Patient Problems: Problems Problem Status Onset Septic shock Acute Fever Acute Pain management Acute Renal cell carcinoma Acute Severe low back pain Acute
--- NOTE | 2018-08-21 14:23 | ASMTLACE ---
LACE Length of stay for Answers: 14 days or more current admission Acuity / Level of Answers: Yes Care: Did the patient have an inpatient admission? Comorbidities - select Answers: Any tumor (including all that apply lymphoma or leukemia) Diabetes (uncontrolled or controlled) Opioid dependence / Chronic pain # of Emergency department Answers: 5-8 visits in the last 6 months Social determinants Answers: Mental health diagnosis (anxiety, depression, pers onality disorders, etc.) Score: 24 Date Signed: 08/21/2018 02:23 PM Electronically Signed By:Mi Mccullough RN
--- NOTE | 2018-08-21 16:09 | ASMTDCNOTE ---
Case Management Discharge Discharge Order Complete? Answers: Yes Patient to Obtain Answers: Other Notes: [facility] Medications Transportation Arranged Answers: [facility] will Pick (Date 08/21/2018 03:30 PM & Time) Case Management Transport Answers: Yes Form Complete Faxed Final Orders Answers: Yes Family Notified Answers: Yes Discharge Comments Notes: D//w , final orders faxed. Kalyan carrasco from [facility]. RN to give report. Date Signed: 08/21/2018 02:25 PM Electronically Signed By:Mi Mccullough RN
--- NOTE | 2018-08-21 16:13 | ASDISCHSUM ---
Discharge Information Plan Status:Hospice-Inpatient Medically Cleared to Leave: Discharge Date:08/21/2018 03:45 PM D/C Disposition:Hospice Facility ADT D/C Disposition:Hospice Facility Projected Discharge Date:08/12/2018 11:00 AM Transportation at D/C:ALS/BLS Discharge Delay Reason: Follow-Up Date:08/12/2018 11:00 AM Discharge Slot: Final Diagnosis: Placement Information Referral Type:Palliative Care Referral ID:[id number] Provider Name: Address 1: Phone Number: Address 2: Fax Number: City: Selection Factors: State: Referral Type:*Hospice Referral ID:[id number] Provider Name:[facility] Address 1:[address] [place] Address 2: City:[place] Selection Factors: State:[place] Patient Contact Information Contact Name:AYDEN Relationship: Address:[address] City:[place] Alternate Phone: [facility]/Zip Code:[place] [address] Email: Financial Information Financial Class:BCOP Primary Plan Desc: OUT OF STATE PPO Primary Plan Number:[id number] Secondary Plan Desc: Secondary Plan Number: Assessment Information [facility] CM Progress Note CM Note CM Note Notes: 08/09/2018 Case Management Note Pt admitted for bilateral lower extremity cellulitis, sepsis and confusion. Pt has history of renal cell cancer, Type 2 diabetes and hypothyroidism. Discussed pt during rounds this morning. is present at bedside. Pt has had 7 admissions since December 2017; generally discharges home without services. ID and wound care to consult. PT OT evals pending. Pt is followed by [facility]. Faxed updates. Case Management d/c poc: to be determined. Case Management to follow. Date Signed: 08/09/2018 11:03 AM Electronically Signed By:Denia Burrell RN LACE LACE Length of stay for Answers: 14 days or more current admission Acuity / Level of Answers: Yes Care: Did the patient have an inpatient admission? Comorbidities - select Answers: Any tumor (including all that apply lymphoma or leukemia) Diabetes (uncontrolled or controlled) Opioid dependence / Chronic pain # of Emergency department Answers: 5-8 visits in the last 6 months Social determinants Answers: Mental health diagnosis (anxiety, depression, pers onality disorders, etc.) Score: 24 Date Signed: 08/21/2018 02:23 PM Electronically Signed By:Mi Mccullough RN [facility] CM Progress Note CM Note CM Note Notes: Hospitalist has put in an order for Hospice care. Patient has been involved with [facility] so contact was made to [facility] and a referral sent. They can meet with patient and Saturday at 2:00 PM. Date Signed: 08/11/2018 02:15 PM Electronically Signed By:Madelin Gordon LCSW [facility] CM Progress Note CM Note CM Note Notes: [facility] met with patient and his today to discuss a plan. Patient's did not want to make a decision yet about hospice and patient is unable to at this time. The family does not have any MDPOA paperwork on file though they stated is patient's MDPOA. Patient's is in denial about the serious nature of his condition. [facility] will check back in with her late tomorrow afternoon. They can place him in their inpatient center since he is in need of pain control managment. CM will need to get a proxy named tomorrow if the does not have the MDPOA paperwork. Patient's and/or proxy will need to make a decision about hospice services to move forward with a d/c plan. CM will follow. Date Signed: 08/12/2018 04:37 PM Electronically Signed By:Bonnie Vazquez LCSW [facility] MARLYS Progress Note CM Note MARLYS Note Notes: Spoke w/Suzette from [facility], notified her that pt was to have a second debridement of leg on Saturday. She has arranged for ash worker to meet with on Saturday at 10am. DC Plan: TBD Date Signed: 08/14/2018 02:48 PM Electronically Signed By:Mi Mccullough RN [facility] MARLYS Progress Note CM Note MARLYS Note Notes: CM went to pt's room to speak to pt and his . Pt in surgery for leg wounds. CM will attempt to visit with pt and his later in day. [facility] to meet with pt and his Saturday. D/C Plan: TBD Date Signed: 08/15/2018 11:10 AM Electronically Signed By:Yaima Eisenberg [facility] CM Progress Note CM Note CM Note Notes: Lindsey from [facility] to meet with pt's . Pt had wound debridement yesterday but continues to be somnolent. Per monument installer, pt meets criteria for carecenter but pt's wishes to wait until Saturday to make any hospice decisions. She agrees to be proxy if need be, proxy form in front of chart. aware. DC Plan: TBD Date Signed: 08/16/2018 12:34 PM Electronically Signed By:Mi Mccullough RN [facility] CM Progress Note CM Note CM Note Notes: CM discussed case with RN, Hospice to meet with tomorrow. CM to follow. Date Signed: 08/17/2018 03:41 PM Electronically Signed By:Johana Marie [facility] CM Progress Note CM Note CM Note Notes: CM spoke to Dr. Castaneda and NATHAN Vega regarding d/c POC. CM spoke to Suzette at [facility]. Suzette reports that pt had a informational on Saturday. CM met w/ pt for proxy paperwork. Pts has been named proxy. is not ready for hospice. Per , pt has been fighting cancer for 6 years. CM to follow. Plan: TBD Date Signed: 08/18/2018 04:08 PM Electronically Signed By:MAHENDRA Gomez [facility] Progress Note CM Note CM Note Notes: CM spoke to Dr. Pulido and NATHAN Dinero regarding d/c POC. CM met w/ pt and for dispo planning. Pt is requesting for hospice. CM called [facility] in and pt and wants the care center. The care center is currently full at this time. CM to follow. Plan: [facility] Inpatient Care Center Date Signed: 08/20/2018 02:04 PM Electronically Signed By:MAHENDRA Gomez Case Management Discharge Plan Note Case Management Discharge Discharge Order Complete? Answers: Yes Patient to Obtain Answers: Other Notes: [facility] Medications Transportation Arranged Answers: [facility] will Pick (Date 08/21/2018 03:30 PM & Time) Case Management Transport Answers: Yes Form Complete Faxed Final Orders Answers: Yes Family Notified Answers: Yes Discharge Comments Notes: D//w , final orders faxed. Kalyan carrasco from [facility]. RN to give report. Date Signed: 08/21/2018 02:25 PM Electronically Signed By:Mi Mccullough RN Intervention Information
== END 2018-08-21 15:45 | disposition hospice, home (50) | DRG 853 ==
LOC: EDUNIT# → F2N 23:03 → F3E 08-11 17:11
PROVIDERS: ADMIT Internal Medicine; ATTEND Internal Medicine
PROC: 0JBP0ZZ Excision of Left Lower Leg Subcutaneous Tissue and Fascia, Open Approach (ICD-10-PCS; principal; 2018-08-13 07:15)
PROC: 02HV33Z Insertion of Infusion Device into Superior Vena Cava, Percutaneous Approach (ICD-10-PCS; 2018-08-14)
PROC: 0J9P0ZZ Drainage of Left Lower Leg Subcutaneous Tissue and Fascia, Open Approach (ICD-10-PCS; 2018-08-15)
PROC: 0JBP3ZZ Excision of Left Lower Leg Subcutaneous Tissue and Fascia, Percutaneous Approach (ICD-10-PCS; 2018-08-15)
DX: A41.89 Other specified sepsis (principal); G92 Toxic encephalopathy; L03.115 Cellulitis of right lower limb; L03.116 Cellulitis of left lower limb; L02.416 Cutaneous abscess of left lower limb; N17.9 Acute kidney failure, unspecified; C64.9 Malignant neoplasm of unspecified kidney, except renal pelvis; I82.4Z9 Acute embolism and thrombosis of unspecified deep veins of unspecified distal lower extremity; R65.20 Severe sepsis without septic shock; G89.29 Other chronic pain; E86.9 Volume depletion, unspecified; E66.01 Morbid (severe) obesity due to excess calories; I10 Essential (primary) hypertension; G47.33 Obstructive sleep apnea (adult) (pediatric); E11.9 Type 2 diabetes mellitus without complications; I89.0 Lymphedema, not elsewhere classified; E03.9 Hypothyroidism, unspecified; Z66 Do not resuscitate
CPT/HCPCS: 96374; 97110-GP; 97112-GP; 97162-GP; 97166-GO; 97530-GO; 97530-GP; 97535-GO; A9585; C1751; G8978-GP-CM; G8979-GP-CI; G8979-GP-CL; G8987-GO-CL; G8988-GO-CK; J1170; J1650; J1815; J1940; J2060; J2405; J2543; J2704; J2997; J3010; J3370